=== PATIENT | male | born 1935 | race Caucasian/White ===

== ENCOUNTER → 2019-11-19 12:10 | Outpatient (CLI) | payer MEDICARE, SELFPAY ==
--- NOTE | 2019-11-19 12:14 | DI.RAD.S_ITS ---
PROCEDURE: XR CHEST 2V INDICATIONS: SOB TECHNIQUE: 2 views of the chest were acquired. COMPARISON: [facility], , CHEST 2 VIEW, 10/09/2012, 16:37. FINDINGS: Surgical changes and devices: None. Lungs and pleura: Lungs are clear. No pleural effusions or pneumothorax. Mediastinum: Mediastinal contours are normal. Heart size is normal. Large hiatal hernia is noted. Bones and chest wall: No suspicious bony abnormalities. Soft tissues appear unremarkable. IMPRESSION: No acute cardiopulmonary disease. Dictated by: Peterson Poole M.D. on 11/19/2019 at 16:00 Approved by: Peterson Poole M.D. on 11/19/2019 at 16:06
[2019-11-19 13:00] LABS: Add Manual Diff / Slide Review NO; Basophils Absolute Auto 0 /uL (0-100); Basophils Percent Auto 0.8 % (0-2); Eosinophils Absolute Auto 100 /uL (0-450); Eosinophils Percent Auto 2.1 % (2-4); Hematocrit 46.7 % (41-53); Hemoglobin 15.4 g/dL (13.5-17.5); Lymphocytes Absolute Auto 1100 /uL (1100-4500); Lymphocytes Percent Auto 17.9 % (25-40); Mean Corpuscular Hemoglobin 31.4 PG (26-34); Mean Corpuscular Volume 95.1 fL (80-100); Monocytes Absolute Auto 600 /uL (0-900); Monocytes Percent Auto 9.5 % (3-14); Neutrophils Absolute Auto 4200 /uL (1500-7000); Neutrophils Percent Auto 69.7 % (50-75); Platelet Count 193 X10^3/uL (150-400); White Blood Cell Count 6.1 X10^3/uL (4.5-11.0)
[2019-11-19 13:18] LABS: Alanine Aminotransferase 14 IU/L (<50); Albumin 4.5 g/dL (3.5-5.0); Albumin Globulin Ratio 1.9 (1.0-2.8); Alkaline Phosphatase 71 U/L (38-126); Aspartate Aminotransferase 30 IU/L (17-59); BUN Creatinine Ratio 14.6 (6-22); Blood Urea Nitrogen 19 mg/dL (9-20); Calcium 9.9 mg/dL (8.4-10.2); Carbon Dioxide 26 mmol/L (22-32); Chloride 102 mmol/L (98-107); Cholesterol 241 mg/dL (140-199); Estimated Glomerular Filt Rate 52.9 mL/min (>60); Globulin 2.4 g/dL (1.7-4.1); Glucose 92 mg/dL (80-110); HDL Cholesterol 77 mg/dL (40-60); HEMOLYSIS < 15 (0-50); LDL Cholesterol Calculated 148 mg/dL (<100); Magnesium 2.2 mg/dL (1.6-2.3); Potassium 4.7 mmol/L (3.4-5.1); Sodium 136 mmol/L (137-145); Total Protein 6.9 g/dL (6.3-8.2); Triglycerides 81 mg/dL (35-150)
[2019-11-19 13:34] LABS: Free T3, Triiodothyronine Free 2.67 pg/mL (2.77-5.27); Free T4, Direct Thyroxine 1.26 ng/dL (0.78-2.19)
[2019-11-19 13:48] LABS: Thyroid Stimulating Hormone 3.25 uIU/mL (0.47-4.68)
[2019-11-19 14:06] LABS: Vitamin B12 387 pg/mL (239-931)
[2019-11-19 17:19] LABS: Creatine Kinase 60 U/L (55-170)
[2019-11-19 17:32] LABS: Troponin I < 0.012 ng/mL (0.01-0.034)
== END ==
PROVIDERS: Referring Provider Nurse Practitioner; Visit Provider Nurse Practitioner
DX: R00.1 Bradycardia, unspecified (principal); R06.02 Shortness of breath; I49.9 Cardiac arrhythmia, unspecified
CPT/HCPCS: 36415; 71046; 80053; 80061; 82550; 82607; 83735; 84439; 84443; 84481; 84484; 85025

== ENCOUNTER → 2019-12-02 13:54 | Outpatient (CLI) | payer MEDICARE, SELFPAY ==
[2019-12-02 14:58] LABS: Occult Blood 1 Negative (Negative); Occult Blood 2 Negative (Negative); Occult Blood 3 Negative (Negative)
[2019-12-03 18:11] LABS: COVID19 Sendout Not Detected (Not Detect)
== END ==
PROVIDERS: Physician Assistant; Family Provider Nurse Practitioner; Referring Provider Nurse Practitioner; Visit Provider Nurse Practitioner
DX: Z11.59 Encounter for screening for other viral diseases (principal)
CPT/HCPCS: 82270; 87635

== ENCOUNTER → 2019-12-05 06:39 | Outpatient (CLI) | payer MEDICARE, SELFPAY ==
--- NOTE | 2019-12-05 06:43 | DI.ECHO.S_ITS ---
[place] [facility]---------+ [facility] +---------+ : : [address] : [address] [address] : : : : [id number] : : : : Phone: [phone] Echocardiogram Report + + :Name: CAROLYNN MOON Study Date: 12/05/2019 Height: 67 in : :[facility] Weight: 183 lb : : Gender: Male BSA: 1.9 m2 : :: 1935 Age: 84 yrs BP: 140/82 mmHg: :Reason For Study: Dyspnea on exertion, Bradycardia : : Performed By: Carie Vela : :Referring: KRYSTAL [facility] : + + Interpretation Summary The left ventricle is normal in size. Left ventricular ejection fraction is estimated to be 55 +/- 5%. The right ventricle is mildly dilated. The right ventricular systolic function is normal. There is mild to moderate mitral regurgitation. There is mild aortic regurgitation. There is mild to moderate tricuspid regurgitation. The right ventricular systolic pressure is estimated to be at least 26 mmHg based on an estimated right atrial pressure of 3 mm Hg. The ascending aorta is moderately enlarged. 4.6 cm in diameter. Mild atherosclerotic plaque(s) in the aortic arch. Procedure: A two-dimensional transthoracic echocardiogram with color flow and Doppler was performed. The study quality was technically adequate. There is no prior echocardiogram noted for this patient. The patient was in sinus bradycardia with heart rates between 44-55 bpm during the exam. The patient had frequent PACs during the exam. Left Ventricle: The left ventricle is normal in size. Left ventricular wall thickness is mildly increased. There is no thrombus. Left ventricular ejection fraction is estimated to be 55 +/- 5%. There are no focal wall motion abnormalities. Diastolic parameters suggest a relaxation abnormality of the left ventricle, consistent with probable normal filling pressures. Right Ventricle: The right ventricle is mildly dilated. The right ventricular systolic function is normal. Atria: The left atrium is severely dilated. The right atrium is moderately dilated. There is no Doppler evidence for an interatrial shunt. Mitral Valve: There is a flat closure plane of the the mitral valve leaflets. The mitral valve leaflets appear mildly thickened, but open well. There is mild mitral annular calcification. There is mild to moderate mitral regurgitation. Aortic Valve: The aortic valve is trileaflet. The aortic valve opens well. There is mild aortic valve sclerosis. There is no aortic valve stenosis. There is mild aortic regurgitation. Tricuspid Valve: The tricuspid valve is normal. There is mild to moderate tricuspid regurgitation. The right ventricular systolic pressure is estimated to be at least 26 mmHg based on an estimated right atrial pressure of 3 mm Hg. Pulmonic Valve: The pulmonic valve leaflets are thin and pliable; valve motion is normal. There is trace pulmonic regurgitation. Great Vessels: The aortic root is normal size. The ascending aorta is moderately enlarged. The aortic arch is at the upper limits of normal in size. Mild atherosclerotic plaque(s) in the aortic arch. The IVC is of normal diameter and collapses greater than 50% with a sniff. This suggests a low right atrial pressure of 3 mm Hg. Pericardium/ Pleura There is no pericardial effusion. MMode/2D Measurements & Calculations LVIDd: 5.0 cm LVOT diam: 2.0 cm LVIDs: 2.9 cm Ao root diam: 3.9 cm FS: 41.0 % Aortic Jxn: 3.2 cm EPSS: 1.3 cm asc Aorta Diam: 4.6 cm IVSd: 1.2 cm Ao Arch Diam (Prox Trans): 3.3 cm LVPWd: 1.0 cm LV alamo. diameter/BSA (cm/m^2): 2.6 LV sys. diameter/BSA (cm/m^2): 1.5 LA A2 area: 25.7 cm2 RA long axis: 7.0 cm LA A4 area: 29.4 cm2 RA area: 25.9 cm2 LA length (vol): 6.7 cm RA vol: 81.9 ml LA vol: 95.9 ml RA : 42.0 ml/m2 LA vol index: 49.2 ml/m2 IVC diam: 1.7 cm RVD1 (basal): 4.4 cm RVD2 (mid): 3.3 cm TAPSE: 2.8 cm Doppler Measurements & Calculations Ao V2 max: 152.0 cm/sec LVOT Max Paramjit: 72.5 cm/sec Ao V2 mean: 105.0 cm/sec LV V1 max P.1 mmHg Ao max P.2 mmHg LV V1 VTI: 20.8 cm Ao mean P.1 mmHg SANDRA(I,D): 1.7 cm2 Ao V2 VTI: 40.5 cm SANDRA(V,D): 1.6 cm2 sev ratio: 0.51 SANDRA indexed to BSA (cm^2/m^2): 0.87 AI P1/2t: 1192 msec AI dec slope: 113.9 cm/sec2 MV E max paramjit: 38.7 cm/sec TR max paramjit: 238.7 cm/sec MV A max paramjit: 41.4 cm/sec TR max P.8 mmHg MV E/A: 0.93 PA V2 max: 49.4 cm/sec Med Peak E' Paramjit: 5.8 cm/sec PA V2 mean: 32.4 cm/sec E/E' med: 6.7 PA mean P.52 mmHg Lat Peak E' Paramjit: 9.0 cm/sec PA Accel Time: 0.10 sec E/E' lat: 4.3 E/e' average: 5.5 MV dec time: 0.36 sec MV P1/2t: 105.6 msec MV P1/2t max paramjit: 38.9 cm/sec SV(LVOT): 68.3 ml MVA(P1/2t): 2.1 cm2 Reading Physician:10:36 AM
--- NOTE | 2019-12-05 08:12 | DI.CT.S_ITS ---
PROCEDURE: CT KIDNEY URETER BLADDER (KUB) INDICATIONS: painless mirohematuria TECHNIQUE: Noncontrast 5 mm thick sections acquired from the diaphragms to the symphysis. 5 mm thick coronal and sagittal reformats were then performed. For radiation dose reduction, the following was used: automated exposure control, adjustment of mA and/or kV according to patient size. COMPARISON: None. FINDINGS: Image quality: Excellent. Lung bases: Lung bases are clear. No pleural effusion. Heart size is within normal limits. Aortic valvular calcification. Small hiatal hernia. Urinary system: Both kidneys are normal in size. No kidney stones. No hydronephrosis or perinephric fat stranding. Small simple cyst at the inferior pole of left kidney. Extrarenal pelvis bilaterally. The left ureter is mildly enlarged distally compared to the right which may be due to peristalsis. The right ureter is deviated medially at the distal aspect prior to its insertion. 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 Small bladder diverticulum at the left dome measuring 1.2 cm. Bladder wall thickness appears normal; no calcified bladder stones. Other solid organs: Liver is normal in size. Calcified granuloma. Gallbladder is unremarkable. Pancreas is normal in contours. Fatty atrophy. Spleen is normal in size. Calcified granuloma. No adrenal nodules. Peritoneum and bowel: Unenhanced bowel loops demonstrate normal wall thickness and caliber. Diverticulosis. Normal appendix. No free fluid or air. Nodes and vessels: No retroperitoneal or mesenteric adenopathy by size criteria. Aorta and inferior vena cava are normal in caliber. Moderate calcified atherosclerotic plaque. Abdominal wall: No ventral hernias. Small right lumbar hernia or intramuscular lipoma. Small posterior rectus intramuscular lipoma the left. Pelvis: No free pelvic fluid. No inguinal hernias or adenopathy. Prostate gland is within normal limits in size. There is central prosthetic calcifications. Question of prior TURP. Bones: No suspicious bony lesions. The sclerosis and cystic change at the inferior SI joints likely degenerative. No vertebral body compression fractures. Moderate DDD. IMPRESSION: 1. No kidney stones. 2. 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 This deviates the right ureter medially. 3. Mild prominence of the distal left ureter. Uncertain clinical significance and etiology. Peristalsis is a possibility. 4. No hydronephrosis. Recommend urology consultation. Consider further evaluation of these findings with CT IVP in this patient with hematuria and cystoscopy. Dictated by: Kareem Castillo M.D. on 12/05/2019 at 8:41 Approved by: Kareem Castillo M.D. on 12/05/2019 at 8:57
== END ==
PROVIDERS: Family Provider Nurse Practitioner; PCP Nurse Practitioner; Referring Provider Nurse Practitioner; Visit Provider Nurse Practitioner
DX: I08.3 Combined rheumatic disorders of mitral, aortic and tricuspid valves (principal); I70.0 Atherosclerosis of aorta; I77.89 Other specified disorders of arteries and arterioles; R06.02 Shortness of breath; R06.09 Other forms of dyspnea; R31.21 Asymptomatic microscopic hematuria; N28.1 Cyst of kidney, acquired; N32.3 Diverticulum of bladder; K44.9 Diaphragmatic hernia without obstruction or gangrene; I49.9 Cardiac arrhythmia, unspecified; M54.5 Low back pain
CPT/HCPCS: 74176; 93016; 93017; 93018; 93306

== ENCOUNTER → 2019-12-08 11:09 | Outpatient (CLI) | payer MEDICARE, SELFPAY ==
--- NOTE | 2019-12-05 09:11 | P.PCN_ITS ---
Cardiac Stress Test Report Referral & Results Date Patient Seen: 12/05/19 Time Patient Seen: 09:00 Requesting provider: Deisy Pederson Indication: Dyspnea Rest ECG: Frequent PACs, rare PVCs. No bigeminy or runs of tachycardia. Normal rate. Procedure Note: Today following both written and verbal informed consent, the patient was exercised according to a standard Mario protocol. The patient exercised for a total of 6 minutes achieving a maximum heart rate of 130. Patient's maximum systolic blood pressure was 172. This was an estimated 7 ME Ts. Normal hemodynamic response to exercise. Presenting symptom of shortness of breath began about 3 minutes and exercise and was the limiting factor to continuing. No other signs or symptoms of angina. No change in rhythm with exertion. Maintained O2 saturation greater than 92% throughout the test. Normal exercise capacity (SANDRA 0% on active scale). Impression: Low probability for ischemia. No change in rhythm associated with onset of symptoms. Correlate clinically with other components of this workup. Please note: Actual ECG tracings can be found in the PACS system.
--- NOTE | 2019-12-25 10:54 | P.HOLT.S_ITS ---
Box Car Bracer Report Referral & Results Date Patient Seen: 12/08/19 Requesting provider: Deisy Pederson Indication: Bradycardia Duration of monitoring (days): 7 Diary information: There were 8 patient triggered events and no patient diary entries Patient triggered events were associated with (within 45 seconds) sinus rhythm, PACs, PVCs and possible junctional rhythm Data: Minimum heart rate identified was 43 beats per minute at 04:04 on 12/09/2019 Maximum sinus heart rate was 114 beats per minute at 13:16 on 12/09/2019 Maximum overall heart rate was 184 beats per minute at 19:52 on 12/10/2019 during a 10 beat run of SVT Patient had frequent PACs including occasional supraventricular couplets. Overall burden of PACs was about 7.6% Patient had rare PVCs There were 197 runs of SVT/atrial tachycardia the fastest being the above- mentioned beat at 184 beats per minute during a 10 beat run, the longest lasting 23.4 seconds at a rate of 115 beats per minute which suggest this was more likely atrial tachycardia There is also as noted above possible junctional rhythm identified with very narrow complex in fact normal looking QRS complexes. This was also during a time of significant baseline artifact, thus limiting ability to trust that these were truly junctional beats, in my opinion. Impression: Patient without evidence of significant bradycardia overall other than minimum heart rate being 43 beats per minute. Patient with relatively frequent supraventricular dysrhythmias as above. No significant blocks and would not actually be concerned about possibility of junctional rhythm in this patient as more likely these were associated with a wandering atrial pacemaker rather than true junctional rhythm. Clinical correlation suggested
== END ==
PROVIDERS: Family Provider Nurse Practitioner; PCP Nurse Practitioner; Referring Provider Nurse Practitioner; Visit Provider Nurse Practitioner
DX: R00.1 Bradycardia, unspecified (principal)
CPT/HCPCS: 0296T; 0298T

== ENCOUNTER 2020-07-31 11:09 | Inpatient (IN) | payer MEDICARE, SELFPAY ==
[2020-07-31] VITALS (19 sets, daily range): BP systolic 120–185; BP diastolic 64–103; PULSE 60–100; RESP 10–20; TEMP 36.2–37.3; O2SAT 91–99; BMI 27.3
--- NOTE | 2020-07-31 | DI.RAD.S_ITS ---
PROCEDURE: XR PELVIS 1-2V INDICATIONS: RIGHT KARLA HIP TECHNIQUE: Intra-operative view of the pelvis and hip acquired. COMPARISON: None. FINDINGS: Bones: Intraoperative devices prior to placement of arthroplasty prostheses are in expected positions. No fractures or suspicious bony lesions. Soft tissues: Overlying surgical retractors are present, along with other intraoperative changes. IMPRESSION: Intraoperative images of right hip shows right hip arthroplasty in progress. Dictated by: Can Bauman M.D. on 07/31/2020 at 16:50 Approved by: Can Bauman M.D. on 07/31/2020 at 16:50
--- NOTE | 2020-07-31 11:17 | DI.RAD.S_ITS ---
PROCEDURE: XR HIP W PEL IF DONE RT 2V INDICATIONS: fall TECHNIQUE: AP pelvis with lateral view(s) of the right hip(s). COMPARISON: 12/05/2019 CT abdomen/pelvis.. FINDINGS: Bones: There is a transcervical fracture of the right proximal femur appears displaced approximately 1.5 centimeter on cross-table lateral view. There is also widening of the pubic symphysis which appears present on 12/05/2019. Pelvic ring appears intact. No suspicious bony lesions. Degenerate changes of the spine. Soft tissues: The visualized bowel gas pattern is normal. Vascular calcifications in the soft tissues. IMPRESSION: 1. Transcervical fracture of the right femur. 2. Widening of the pubic symphysis, likely secondary to remote injury as this was seen on CT performed on 12/05/2019. Dictated by: David Catalan M.D. on 07/31/2020 at 11:03 Approved by: David Catalan M.D. on 07/31/2020 at 11:07
[2020-07-31 11:42] LABS: Add Manual Diff / Slide Review NO; Basophils Absolute Auto 0 /uL (0-100); Basophils Percent Auto 0.3 % (0-2); Eosinophils Absolute Auto 400 /uL (0-450); Hematocrit 47.8 % (41-53); Hemoglobin 15.9 g/dL (13.5-17.5); Lymphocytes Absolute Auto 900 /uL (1100-4500); Lymphocytes Percent Auto 9.6 % (25-40); Mean Corpuscular HGB Conc 33.3 % (30-36); Mean Corpuscular Hemoglobin 31.4 PG (26-34); Mean Corpuscular Volume 94.2 fL (80-100); Monocytes Absolute Auto 600 /uL (0-900); Monocytes Percent Auto 6.9 % (3-14); Neutrophils Absolute Auto 7300 /uL (1500-7000); Neutrophils Percent Auto 79.2 % (50-75); Platelet Count 154 X10^3/uL (150-400); Red Blood Cell Count 5.08 X10^6/uL (4.5-5.9); Red Cell Distribution Width 14.4 % (11.6-14.8); White Blood Cell Count 9.2 X10^3/uL (4.5-11.0)
[2020-07-31 11:48] LABS: INR 1.1 (0.9-1.3); Prothrombin Time 12.3 SECONDS (10.1-12.7)
[2020-07-31 11:54] LABS: Alanine Aminotransferase 14 IU/L (<50); Albumin 4.1 g/dL (3.5-5.0); Albumin Globulin Ratio 1.4 (1.0-2.8); Alkaline Phosphatase 65 U/L (38-126); Aspartate Aminotransferase 28 IU/L (17-59); BUN Creatinine Ratio 17.6 (6-22); Bilirubin Total 1.2 mg/dL (0.2-1.3); Blood Urea Nitrogen 22 mg/dL (9-20); Calcium 9.3 mg/dL (8.4-10.2); Carbon Dioxide 22 mmol/L (22-32); Chloride 104 mmol/L (98-107); Estimated Glomerular Filt Rate 55.2 mL/min (>60); Glucose 101 mg/dL (80-110); HEMOLYSIS < 15 (0-50); Potassium 4.4 mmol/L (3.4-5.1); Sodium 136 mmol/L (137-145); Total Protein 7.1 g/dL (6.3-8.2)
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
[2020-07-31] MEDS: MORPHINE 2 MG/ML INJ IV (12:41)
[2020-07-31 13:27] LABS: COVID19 - ADMIT (NP swab/PCR) Negative (Negative)
--- NOTE | 2020-07-31 14:02 | P.HP_ITS ---
History of Present Illness History of Present Illness Date Patient Seen: 07/31/20 Time Patient Seen: 14:02 Chief complaint: HIP PAIN Narrative: Sloan Cano is an 85-year-old male with no significant past medical history who presented to the emergency room with worsening right hip pain after a fall 2 days ago. Patient states that he had a mechanical fall over an exposed bolt when shuffling sideways and fell onto his right side. He had immediate pain afterwards, which he tried to take oral pain medications at home but this did not seem to make his leg better. His leg pain continue to worsen and he was starting to become very weak so this is why he came to the emergency room today. Prior to the fall he experienced no dizziness, chest pain, palpitations. He has no recent shortness of breath or dyspnea on exertion. He is able to row about 10 miles on his home exercise machine. He does endorse alcohol use of about 2-3 beers per day. He denies history of shaking or withdrawal symptoms when he does not drink. He has not had a drink since his fall 2 days ago. He did have a cardiac workup as an outpatient last year, which was fairly unremarkable. His EKG stress test was unremarkable and his Holter monitor showed frequent PACs, some episodes of nonsustained ventricular tachycardia, but no other tachyarrhythmias or bradyarrhythmias. In the emergency room, the patient was mildly hypertensive, but the remainder is vital signs were unremarkable. Initial laboratory evaluation showed an unremarkable CBC, normal coagulation studies. Chemistries revealed a creatinine of 1.25 with an EGFR 55.2 but the remainder of his chemistries were unrema rkable. COVID-19 testing was negative. X-ray of his right hip reveals a transcervical fracture of his right femur. Patient History Medical History Anemia (~2009) Bradycardia Cardiac arrhythmia Fatigue Hearing loss (~1989) Hiatal hernia Mumps (~1948) Pain in lower back Shortness of breath on exertion Shoulder pain (~2003) Tinnitus (~1989) Surgical History Anesthesia History of hernia repair (~05/2016) Family & Social History Family History Father Ruptured, aorta Sister Giant cell arteritis Safety & Behavioral: Feels Safe in Current Yes Environment Been Physically Hurt or No Threatened By a Person Tobacco & Substance use: Smoking Status Former smoker alcohol intake current Meds Home Medications and Allergies Home Medications Medication Instructions Recorded Confirmed Type diphenhydramine HCl 50 mg capsule 50 mg PO BEDTIME PRN 11/19/19 06/15/20 History Allergies Allergy/AdvReac Type Severity Reaction Status Date / Time No Known Drug Allergies Allergy Unknown Verified 01/07/20 08:41 [NO KNOWN DRUG ALLERGIES] Review of Systems Review of Systems Narrative: All other systems reviewed with the patient and are negative unless otherwise stated. Exam Vital Signs (past 8 hours): - 07/31/20 11:12 07/31/20 12:43 07/31/20 12:44 Temperature 98.4 F Pulse Rate 78 66 60 Respiratory Rate 16 16 Blood Pressure 185/89 H 174/82 H Pulse Oximetry 96 93 99 07/31/20 13:00 Temperature Pulse Rate 65 Respiratory Rate Blood Pressure 145/95 H Pulse Oximetry 93 Oxygen Delivery Method Room Air Narrative Exam Narrative: GENERAL APPEARANCE: Well developed, well nourished, in no acute distress. SKIN: Inspection of the skin reveals no rashes, ulcerations or petechiae. HEENT: Normocephalic atraumatic, extraocular muscles are intact, oropharynx is clear and mucous membranes are moist, neck is supple without adenopathy NECK: Supple and symmetric. There was no thyroid enlargement, and no tenderness, or masses were felt. CHEST: Normal AP diameter and normal contour without any kyphoscoliosis. LUNGS: Auscultation of the lungs revealed no wheezes, rhonchi, or rales. CARDIOVASCULAR: Irregular heart rhythm with a normal rate murmurs, gallops, rubs. Peripheral pulses were 2+ and symmetric. ABDOMEN: Soft and nontender with normal bowel sounds. No ascites was noted. MUSCULOSKELETAL: There was no tenderness or effusions noted. Muscle strength and tone were normal. EXTREMITIES: No cyanosis, clubbing or edema. NEUROLOGIC: Alert and oriented x 3. Normal affect. Gait was normal. Strength is +5/5 in the Upper Extremities and Lower Extremities Bilaterally. Sensation to touch was normal. Objective ECG Impression: Sinus rhythm with marked sinus arrhythmia with premature supraventricular complexes Otherwise normal ECG Imaging CT scan - pelvis: Radiologist's impression: PROCEDURE: XR HIP W PEL IF DONE RT 2V INDICATIONS: fall TECHNIQUE: AP pelvis with lateral view(s) of the right hip(s). COMPARISON: 12/05/2019 CT abdomen/pelvis.. FINDINGS: Bones: There is a transcervical fracture of the right proximal femur appears displaced approximately 1.5 centimeter on cross-table lateral view. There is also widening of the pubic symphysis which appears present on 12/05/2019. Pelvic ring appears intact. No suspicious bony lesions. Degenerate changes of the spine. Soft tissues: The visualized bowel gas pattern is normal. Vascular calcifi cations in the soft tissues. IMPRESSION: 1. Transcervical fracture of the right femur. 2. Widening of the pubic symphysis, likely secondary to remote injury as this was seen on CT performed on 12/05/2019. Labs Result Diagrams: 07/31/20 11:28 07/31/20 11:28 Labs: Laboratory Results - last 24 hr 07/31/20 07/31/20 07/31/20 11:28 11:28 11:28 WBC 9.2 RBC 5.08 Hgb 15.9 Hct 47.8 MCV 94.2 MCH 31.4 MCHC 33.3 RDW 14.4 Plt Count 154 Neut % (Auto) 79.2 H Lymph % (Auto) 9.6 L [place] % (Auto) 6.9 Eos % (Auto) 4.0 Baso % (Auto) 0.3 Neut # (Auto) 7300 H Lymph # (Auto) 900 L [place] # (Auto) 600 Eos # (Auto) 400 Baso # (Auto) 0 PT 12.3 INR 1.1 Sodium 136 L Potassium 4.4 Chloride 104 Carbon Dioxide 22 BUN 22 H Creatinine 1.25 Estimated GFR 55.2 L BUN/Creatinine Ratio 17.6 Glucose 101 Calcium 9.3 Total Bilirubin 1.2 AST 28 ALT 14 Alkaline Phosphatase 65 Total Protein 7.1 Albumin 4.1 Globulin 3.0 Albumin/Globulin Ratio 1.4 SARS-CoV-2 (PCR) 07/31/20 12:31 WBC RBC Hgb Hct MCV MCH MCHC RDW Plt Count Neut % (Auto) Lymph % (Auto) [place] % (Auto) Eos % (Auto) Baso % (Auto) Neut # (Auto) Lymph # (Auto) [place] # (Auto) Eos # (Auto) Baso # (Auto) PT INR Sodium Potassium Chloride Carbon Dioxide BUN Creatinine Estimated GFR BUN/Creatinine Ratio Glucose Calcium Total Bilirubin AST ALT Alkaline Phosphatase Total Protein Albumin Globulin Albumin/Globulin Ratio SARS-CoV-2 (PCR) Negative Assessment & Plan Assessment & Plan narrative: Sloan Cano is an 85-year-old male with no significant past medical history who presented to the emergency room with worsening right hip pain after a fall 2 days ago. He is admitted with a right femur fracture, pending orthopedic interventions planned for later today. He appears to be medically optimized prior to this procedure. 1. R transcervical femur fracture, acute, present on admission - appreciate orthopedic surgery, Dr. Elaine Parra, and her time for management. - suspect pathologic given the nature of his fall secondary to likely osteoporosis. 2. Elevated blood pressure without a diagnosis of hypertension, acute, present on admission. - suspect secondary to pain. However will continue to monitor. 3. Irregular heart beat, chronic - patient has had extensive evaluation within the year including EKG stress testing and holter which showed PACs and a runs of NSVT. Patient denies current symptoms. No evidence of atrial fibrillation. - will continue telemetery after sugery. -EKG in the emergency room shows marked sinus arrhythmia with frequent PACs, no significant ST or T-wave changes indicative of ischemia. 4. Acute urinary retention, present on admission - patient unable to void since yeseterday, bladder scan with >800 cc. May be in setting of acute fracture, will continue to monitor after surgery. Hewitt placed upon arrival to the floor. Prior to this no reported BPH symptoms. CODE: Full as discussed with the patient. Advanced directives are with his spouse, whom is his surrogate decision maker. DVT: per ortho post operatively. Dispo: admitted under inpatient status as his stay is expected to exceed 2 midnights COVID-19 COVID-19 status: Negative
--- NOTE | 2020-07-31 14:10 | PC.NURSE ---
Addendum entered by Margo Alarcon R.N. 08/01/20 06:41: Patient voided 100 ml via urinal. 950 ml urine amount on bladder scanner. 16 fr Hewitt Cath placed by Chaya SHAEFR, as ordered by Dr. Lozano. Please see urine scan print out in chart. Original Note: Admit note: Received patient from ED to room 211, awake, alert, and pleasantly cooperative. VSS and remain NPO. Dr. Lozano at bedside on patient arrival for examination. Bedside report given to Chaya form Surgery. Patient off floor shortly after arrival to AC unit.
--- NOTE | 2020-07-31 14:26 | P.HP_ITS ---
History of Present Illness History of Present Illness Date Patient Seen: 07/31/20 Time Patient Seen: 14:26 Date of Onset of Symptoms: 07/29/20 Chief complaint: HIP PAIN Narrative: This is an 85-year-old gentleman who tripped on over a metal pipe type thing and landed and hurt his right hip. He noted the acute onset of right hip pain. He was at home at the time he has been at home hoping it would go away but really was not getting better and he could not put weight on his right leg so then she called an ambulance and was transported to [facility] for evaluation. Patient History Medical History Anemia (~2009) Bradycardia Cardiac arrhythmia Fatigue Hearing loss (~1989) Hiatal hernia Mumps (~1947) Pain in lower back Shortness of breath on exertion Shoulder pain (~2003) Tinnitus (~1989) Surgical History Anesthesia History of hernia repair (~05/2016) Family & Social History Family History Father Ruptured, aorta Sister Giant cell arteritis Safety & Behavioral: Feels Safe in Current Yes Environment Been Physically Hurt or No Threatened By a Person Tobacco & Substance use: Smoking Status Former smoker alcohol intake current Meds Home Medications and Allergies Home Medications Medication Instructions Recorded Confirmed Type diphenhydramine HCl 50 mg capsule 50 mg PO BEDTIME PRN 11/19/19 06/15/20 History Allergies Allergy/AdvReac Type Severity Reaction Status Date / Time No Known Drug Allergies Allergy Unknown Verified 01/07/20 08:41 [NO KNOWN DRUG ALLERGIES] Review of Systems Review of Systems Narrative: He notes he needs he had to void. He last voided yesterday. He does not normally have nocturia. He denies fevers or chills. He was not short of breath, lightheaded or having any cardiac pain prior to his fall. Exam Vital Signs (past 8 hours): - 07/31/20 11:12 07/31/20 12:43 07/31/20 12:44 Temperature 98.4 F Pulse Rate 78 66 60 Respiratory Rate 16 16 Blood Pressure 185/89 H 174/82 H Pulse Oximetry 96 93 99 04/03/21 13:00 07/31/20 13:45 Temperature 98.3 F Pulse Rate 65 78 Respiratory Rate 16 Blood Pressure 145/95 H 153/84 H Pulse Oximetry 93 96 Oxygen Delivery Method Room Air Oxygen Flow Rate 0 Narrative Exam Narrative: HEENT is benign, cor slightly a regular no murmur fairly normal sound and S1 and S2, lungs are clear, abdomen is soft and benign, right leg shows obvious foreshortening with significant pain with attempted gentle range of motion, his feet are warm bilaterally is able to fire toe flexors and extensors bilaterally, calfs are soft bilaterally Objective Labs Result Diagrams: 07/31/20 11:28 07/31/20 11:28 Labs: Laboratory Results - last 24 hr 07/31/20 07/31/20 07/31/20 11:28 11:28 11:28 WBC 9.2 RBC 5.08 Hgb 15.9 Hct 47.8 MCV 94.2 MCH 31.4 MCHC 33.3 RDW 14.4 Plt Count 154 Neut % (Auto) 79.2 H Lymph % (Auto) 9.6 L [place] % (Auto) 6.9 Eos % (Auto) 4.0 Baso % (Auto) 0.3 Neut # (Auto) 7300 H Lymph # (Auto) 900 L [place] # (Auto) 600 Eos # (Auto) 400 Baso # (Auto) 0 PT 12.3 INR 1.1 Sodium 136 L Potassium 4.4 Chloride 104 Carbon Dioxide 22 BUN 22 H Creatinine 1.25 Estimated GFR 55.2 L BUN/Creatinine Ratio 17.6 Glucose 101 Calcium 9.3 Total Bilirubin 1.2 AST 28 ALT 14 Alkaline Phosphatase 65 Total Protein 7.1 Albumin 4.1 Globulin 3.0 Albumin/Globulin Ratio 1.4 SARS-CoV-2 (PCR) 07/31/20 12:31 WBC RBC Hgb Hct MCV MCH MCHC RDW Plt Count Neut % (Auto) Lymph % (Auto) [place] % (Auto) Eos % (Auto) Baso % (Auto) Neut # (Auto) Lymph # (Auto) [place] # (Auto) Eos # (Auto) Baso # (Auto) PT INR Sodium Potassium Chloride Carbon Dioxide BUN Creatinine Estimated GFR BUN/Creatinine Ratio Glucose Calcium Total Bilirubin AST ALT Alkaline Phosphatase Total Protein Albumin Globulin Albumin/Globulin Ratio SARS-CoV-2 (PCR) Negative x-rays show a displaced right femoral neck fracture, no obvious hip arthritis bilaterally Assessment & Plan Assessment & Plan narrative: displaced right femoral neck fracture. The plan is for a right hip unipolar. He has relatively good looking bone and I will do either uncemented were cemented depending upon the quality of bone. Procedure alternatives risks benefits and complications were discussed in detail. He understands and agrees and consents to proceed with surgery. He also has urinary retention and a Hewitt catheter was placed 1500 cc of urine was drained.
--- NOTE | 2020-07-31 14:27 | PM.OP.1 ---
Operative Date/Time/Diagnoses Date of procedure: 07/31/20 Time of procedure: 14:27 Pre-op diagnosis: Right hip femoral neck fracture Post-op diagnosis: same Procedure & Clinicians Procedure: right hip unipolar replacement Same procedure as scheduled: Yes Indications: this is 85-year-old gentleman who fell on noted the acute onset of right hip pain. He was hoping that it would get better on its own and waited a day and a half to 2 days to come to the emergency room. He notes he was not able to put weight on his right leg. His x-rays showed a displaced right femoral neck fracture but the operating room for partial hip replacement. Procedure alternatives risks benefits and complications were discussed with him. Surgeon: Elaine Parra Housing Assistant Property Manager: Luís Dunaway Anesthesia Type: General Operative Notes Findings: displaced right femoral neck fracture. Adequate stability, no significant acetabular wear Closure Type: primary Specimen(s): none sent Prosthetic devices, grafts, tissues, transplants, or devices: Parra and nephew Size 52 femoral head, size 10 high offset anthology, +4 Applied: drain(s) Estimated Blood Loss (mL): 250 Blood products transfused: none Procedure in detail: The patient was seen in the pre-operative area, where the patient identified the right hip as the operative site and this was marked with my initials. The patient received pre-operative antibiotics and was taken to the operating room and placed on the operative table in the supine position after satisfactory anesthesia. A multimedia production assistant out was performed. Patient was placed in the lateral decubitus position and all bony prominences were carefully padded and the arms were appropriately position. The right lower extremity was prepared from the ankle to the iliac crest with ChloroPrep in the usual fashion and draped through sterile drapes. The hip was approached through posterolateral approach. Dissection was carried out down through skin and subcutaneous tissues. The fascia was opened. Gelpi retractors were placed. A Charnley retractor was placed. A small amount of inflamed bursa was resected. The piriformis was identified and protected. The other short external rotators and capsule were carefully stripped from the posterior aspect of the femur. They were tagged and carefully retracted. The femoral neck was brought up and an osteotomy was made of the residual femoral neck approximately 1 fingerbreadth above the lesser trochanter. The head was removed without difficulty. It was carefully sized. The acetabulum was meticulously irrigated with normal saline. There were [mild] changes in the acetabulum. The acetabulum was carefully protected with an E tape. The canal was opened with a box cutting osteotome, followed by a T-handled reamer and a lateralizing reamer. The femur was prepped with sequential broaching. A trial head and neck were then placed and the hip relocated and checked for leg length and stability. The patient was stable in the position of sleep, of squatting, and could be put through a range of motion with 45 degrees internal rotation without dislocation. At 90 degrees flexion, internal rotation to 70? was possible before dislocation. This was felt to be satisfactory and the appropriate components were opened, and the trials were removed. I checked both a standard and a high offset. High offset was better for the offset and there was not excessive tension on the external rotators. The bone was carefully checked and felt to be adequate for and cemented technique. The bone was meticulously cleaned with pulse lavage. The femoral component was placed without difficulty. A repeat trial reduction showed good range of motion and stability. We did a brief Betadine soak after the cement had hardened. Patient had good range of motion and stability. The final head and neck were placed after carefully irrigating the wound. The capsulomuscular flap was then repaired to the greater trochanter though an awl hole using the tag sutures. The short external rotators were repaired with nonabsorbable sutures. A deep drain was placed and brought out anteriorly. The fascia marielle was closed with Vicryl. A subcutaneous drain was placed. The subcutaneous layer was closed with interrupted 3-0 Vicryl, and the skin with a running 3-0 V-Lock suture and a few skin rosa. An Aquacel Ag dressing was applied and the patient was taken to recovery having tolerated the procedure well. Complications: none Post-operative Condition: stable Disposition: Acute Care Plan for aftercare: The patient will be maintained on a standard total hip replacement protocol with weight bearing as tolerated and posterior hip precautions. The patient will receive Aspirin and sequential compression devices for DVT prophylaxis. The patient will be discharged home when safe for the home environment.
[2020-07-31] MEDS: LACTATED RINGERS 1,000 ML 42 ML IV ×2 (14:49→16:33)
[2020-07-31] MEDS: VANCOMYCIN 1,000 MG/200 ML PIGGYBACK 200 MG IV ×2 (15:07→16:05)
--- NOTE | 2020-07-31 15:14 | SUR.HOLD ---
Late entry (1415): Went to retrieve patient from inpatient room 211. Patient GCS 15 and asking to use urinal prior to transfer to OR. Patient having difficulty starting his urine stream and tells this nurse that he has not voided since yesterday at home. Asked inpatient nurse to bring bladder scanner. Notified hospitalist of findings. Bladder scan reveals 940 mls. Orders received by hospitalist to insert indwelling kohler catheter. Notified patient of plan. V/U and willing to proceed. Inserted 16 greek kohler catheter using sterile technique without difficulty and no resistance met upon insertion. Emptied 1200 mls of dark, malodorous urine. Urine specimen collected. Notified nursing staff, Mackenzie, of findings. Patient states that he feels much better.
[2020-07-31] MEDS: CEFAZOLIN 2 GM/100 ML FROZ.PIGGY IV ×2 (15:15→22:53)
--- NOTE | 2020-07-31 15:57 | SUR.OPER ---
Lateral on padded OR bed. Gel axillary roll. Arms secured on padded armboard with pillow supporting top arm. Padded hip positioner braces x4 - anterior and posterior chest and pelvis. Additional gel pad used anterior pelvis. Gel pad under bottom leg from knee to foot and secured with tape over sheet.
[2020-07-31] MEDS: BUPIVACAINE 0.25% W/ EPI (PF) 10 ML VIAL 20 ML INJ (16:24)
[2020-07-31] MEDS: BUPIVACAINE LIPOSOME 266 MG/20 ML VIAL INJ (16:26)
[2020-07-31] MEDS: TRANEXAMIC ACID 1,000 MG in SODIUM CHLORIDE 0.9% 100 ML 400 ML IV (16:27)
--- NOTE | 2020-07-31 17:39 | DI.RAD.S_ITS ---
PROCEDURE: XR HIP W PEL IF DONE RT 2V INDICATIONS: post-op right hip TECHNIQUE: 2 view(s) of the hip acquired. COMPARISON: [facility], [place], XR HIP W PEL IF DONE RT 2V, 07/31/2020, 11:33. FINDINGS: Bones: Patient is status post right hip arthroplasty, with hardware components in expected positions. The hip joint appears congruent. The visualized bony structures appear intact. Soft tissues: Overlying postoperative changes are noted. No suspicious soft tissue densities. Vascular calcification in the groin. IMPRESSION: Right total hip arthroplasty without evidence of hardware complication. Dictated by: David Catalan M.D. on 07/31/2020 at 17:04 Approved by: David Catalan M.D. on 07/31/2020 at 17:08
[2020-07-31] MEDS: LACTATED RINGERS 1,000 ML 125 ML IV (18:54)
[2020-07-31 19:00] LABS: Bacteria Urine None Seen; RBC Urine None Seen (0-5/HPF); WBC Urine None Seen (0-5/HPF)
[2020-07-31 19:04] LABS: Appearance Urine UA CLEAR; Bilirubin Urine UA NEGATIVE (NEGATIVE); Color Urine UA YELLOW; Glucose Urine UA TRACE g/dL (Negative); Ketones Urine UA NEGATIVE (NEGATIVE); Leukocyte Esterase Urine UA NEGATIVE (NEGATIVE); Nitrite Urine UA NEGATIVE (Negative); Occult Blood Urine UA NEGATIVE (Negative); Protein Urine UA NEGATIVE (Negative); Specific Gravity Urine UA 1.015 (1.000-1.035); Urobilinogen Urine UA 0.2 E.U./dL (0.2)
[2020-07-31 19:10] LABS: Culture Indicated Urine Cult Not Indicated
[2020-07-31] MEDS: ASPIRIN EC 81 MG TABLET PO (20:25)
[2020-07-31] MEDS: DOCUSATE 100 MG CAPSULE PO (20:25)
[2020-07-31] MEDS: ACETAMINOPHEN 325 MG TABLET 650 MG PO (20:25)
[2020-07-31] MEDS: IBUPROFEN 400 MG TABLET PO (20:25)
[2020-08-01] VITALS (7 sets, daily range): BP systolic 124–156; BP diastolic 72–86; PULSE 61–74; RESP 18–22; TEMP 36.4–36.8; O2SAT 94–98
[2020-08-01] MEDS: IBUPROFEN 400 MG TABLET PO ×6 (00:25→20:25)
[2020-08-01] MEDS: LACTATED RINGERS 1,000 ML 125 ML IV (03:04)
[2020-08-01 05:35] LABS: Add Manual Diff / Slide Review NO; Basophils Absolute Auto 0 /uL (0-100); Basophils Percent Auto 0.1 % (0-2); Eosinophils Absolute Auto 0 /uL (0-450); Eosinophils Percent Auto 0.1 % (2-4); Hematocrit 37.5 % (41-53); Hemoglobin 12.7 g/dL (13.5-17.5); Lymphocytes Absolute Auto 400 /uL (1100-4500); Mean Corpuscular HGB Conc 33.9 % (30-36); Mean Corpuscular Volume 94.4 fL (80-100); Monocytes Absolute Auto 600 /uL (0-900); Monocytes Percent Auto 5.8 % (3-14); Neutrophils Absolute Auto 9100 /uL (1500-7000); Platelet Count 150 X10^3/uL (150-400); Red Blood Cell Count 3.97 X10^6/uL (4.5-5.9); Red Cell Distribution Width 14.2 % (11.6-14.8); White Blood Cell Count 10.1 X10^3/uL (4.5-11.0)
[2020-08-01 05:46] LABS: BUN Creatinine Ratio 23.7 (6-22); Blood Urea Nitrogen 31 mg/dL (9-20); Calcium 8.4 mg/dL (8.4-10.2); Carbon Dioxide 24 mmol/L (22-32); Chloride 105 mmol/L (98-107); Estimated Glomerular Filt Rate 52.3 mL/min (>60); Glucose 129 mg/dL (80-110); HEMOLYSIS < 15 (0-50); Potassium 4.7 mmol/L (3.4-5.1); Sodium 134 mmol/L (137-145)
[2020-08-01] MEDS: CEFAZOLIN 2 GM/100 ML FROZ.PIGGY IV (06:06)
[2020-08-01] MEDS: DOCUSATE 100 MG CAPSULE PO ×2 (08:41→20:24)
[2020-08-01] MEDS: ACETAMINOPHEN 325 MG TABLET 650 MG PO ×3 (08:41→20:25)
[2020-08-01] MEDS: ASPIRIN EC 81 MG TABLET PO ×2 (08:41→20:24)
--- NOTE | 2020-08-01 08:48 | CM.DANOTE ---
Addendum entered by Machelle Strong LPN 08/01/20 10:02: Discussion with Pt Betzaida in Rounds reveals that pt's spouse Malia would not be able to provide much assist to pt at d/c but that thus far pt was doing will with PT. Dr. Lozano notes that pt did have urinary retention when admitted. He states this is likely due to the severe pain he was in with the hip and anticipates this will resolve after kohler catheter is removed. P: follow for snf vs HH. Addendum entered by Machelle Strong LPN 08/01/20 09:05: Met now with pt and introduced self and role. Joined by Betzaida PT who will see him now for initial eval. Pt confirms he was independent with mobility without assistive device. He and his have not had a change to even think about rehab options but he wondered if he could go straight to a gym. Gave brief info on HH vs snf options and assured him that DCP team would be following as he worked with therapy to see what rehab options might work best for him. Original Note: Discharge Planning/Care Management DCP: Assessment: case received, EMR reviewed. Pt is an 85 year old male who admitted yesterday afternoon to care of hospitalist team. Consulting: Dr. Tammy Parra Payer: Medicare and [facility] Admission status: in review: per JUSTIN Crum. update: Confirmed now as INPT: 07/31 PCP: Oliver Moy Pt was admitted after a fall with hip pain and home treatment attempted. Testing revealed a fracture and pt was taken yesterday late afternoon to surgery for a R unipolar hip replacement. PT was ordered. Order now in place for OT. P: will discuss in Team Rounds and meet with pt and/or his to begin discussion of dc dispo options. Pt is well poised for home with HH or SNF rehab under his insurance. Advanced directive, confirm from FAMILY Start: 07/31/20 18:48 Freq: Q24H Status: Active Protocol: Document 07/31/20 18:49 AKP (Rec: 07/31/20 18:49 AK [id number]) Advance Directive, confirm on record Time 18:49 Person contacted malia Copy received No CM Discharge Assessment Start: 08/01/20 08:46 Freq: Status: Active Protocol: Document 08/01/20 08:47 ITV (Rec: 08/01/20 08:48 ITV [id number]) Discharge Planning Assessment Advance Directives? Yes Advance Directives on File No History Provided By Medical Record Prior Living Arrangements House Household Members spouse Is patient alert and oriented? Yes White-board Updated in Patient Room with Yes name and ext. # of Automatic Teller Machine Servicer
--- NOTE | 2020-08-01 09:31 | PT.IIE ---
Current Diagnoses Displaced midcervical fracture of right femur, initial encounter for closed fracture (07/31/20) Surgery Performed Operation Date: 07/31/20 15:00 Actual Procedures p Hip Hemiarthroplasty Dean(Right) - Elaine Parra MD Surgical History (Last Reviewed 07/31/20 @ 14:45 by Elaine Parra MD) Anesthesia History of hernia repair (~05/2016) Medical History (Last Reviewed 07/31/20 @ 14:45 by Elaine Parra MD) Anemia (~2009) Bradycardia Cardiac arrhythmia Fatigue Hearing loss (~1989) Hiatal hernia Mumps (~1947) Pain in lower back Shortness of breath on exertion Shoulder pain (~2003) Tinnitus (~1989) Physical Therapy Inpatient Evaluation/Re-Eval M1 PT/OT-IP Prior Functional Status Start: 08/01/20 08:22 Freq: NEEDED Status: Active Protocol: Document 08/01/20 09:31 AW (Rec: 08/01/20 10:57 AW [id number]) Medical Review Prior Functional Status Medical History Reviewed Yes Communication Pt is HUSLIA. He is an effective verbal communicator. Mobility and Gait Independent without assistive device. He remains active with rowing and does ~10 miles on an ergometer regularly. Activities of Daily Living and IADL's Independent. Pt drives, shops, cooks. Social History Household Members spouse Living Arrangements House Number of Floors (Floors) One Floor Number of Stairs To Enter/Railing? 2 KIKO with left rail ascending . Home Environment Standard Height Toilet,Walk in Shower Home Equipment Straight Cane,Crutches,Hand Held Shower,Long Handled Shoe Horn,Grab Bars In Shower Additional Social History Comment Pt lives with his , Malia, and a cat. He states Malia has a bad knee and low endurance which will limit her ability to assist at home. M2 PT-IP Current Condition Start: 08/01/20 08:22 Freq: NEEDED Status: Active Protocol: Document 08/01/20 09:31 AW (Rec: 08/01/20 10:57 AW [id number]) Physical Therapy Current Condition Current Condition Evaluation Date 08/01/20 Treatment Diagnosis R femoral neck fx s/p unipolar hip arthroplasty; difficulty in walking Onset Date 07/29/20 Precautions Posterior Hip Precautions No Hip Flexion > 90 degrees,No Hip Internal Rotation,No Hip Adduction Weight Bearing Status Weight Bearing Status Weight Bear as Tolerated M3 PT-IP Subjective Start: 08/01/20 08:22 Freq: NEEDED Status: Active Protocol: Document 08/01/20 09:31 AW (Rec: 08/01/20 10:57 AW [id number]) Subjective Physical Therapy Visit Type Type Initial Evaluation Visit Start Time 09:00 Visit Stop Time 09:31 Total Visit Minutes 31 Physical Therapy Visit Comments Patient Comments Pt is willing to participate with PT Therapy Pain Assessment Pain When Pain Assessed During Mobility Pain Present Pain Present Pain Reported Location rt hip Intensity 2 Scale Used Numeric (0 - 10) Pain Management Techniques Distraction,Re-positioning, Timing of Activity with Medications M4 PT-IP Mobility and Gait Start: 08/01/20 08:22 Freq: NEEDED Status: Active Protocol: Document 08/01/20 09:31 AW (Rec: 08/01/20 10:57 AW [id number]) PT-Bed Mobility Assessment Supine to Sit Supine to Sit Contact Guard Assistance Scooting Scooting to Edge of Bed Contact Guard Assistance PT-Transfer Assessment Sit to and From Stand Sit to and from Stand Moderate Assistance,1 Person Assistance,Use of Upper Extremities Equipment Transfer Assistive Device Gait Belt,Front Wheeled Walker Orthotic/Prosthetic Devices or Brace: No Transfers Transfer Destination Chair Transfer Technique Stand Step Pivot Transfer Ability Level of Assist Minimal Assistance Comments Mobility Comments Pt was lying in bed as PT arrived. BP 164/85. Educated pt on posterior hip precautions and bed mobility related to same. He completed supine to sit CGA and cues for positioning. He sat EOB and denied lightheadedness. Pt stood from the bed mod A x 1 and ambulated to the window with good attention to precautions. He turned to his left and ambulated around the room with FWW SBA before transferring to the chair min A x 1 and cues to maintain precautions. Pt agreed to sit up on the chair. He was left with call light in reach. Informed RN that pt would need a chair alarm. Gait Assessment Gait Gait Assistance Required: Standby Assistance Distance (Feet) 30 Able to Maintain Weight Bearing Status Yes During Gait Assistive Devices Assistive Device Gait Belt,Front Wheeled Walker Orthotic/Prosthetic Devices or Brace: Yes Gait Deviations General Gait Pattern Antalgic,Decreased Stride Length,Decreased Feet Clearance,Flexed Trunk,Step-to Gait Factors Limiting Gait Function Factors Limiting Gait Function Decreased Activity Tolerance, Decreased Strength,Difficulty Following Directions,Limited Range of Motion,Pain,Poor Balance,Poor Safety Awareness Comments Gait Comments Pt ambulated around the room with FWW SBA. He was attentive to precautions, turning to his left at all times without verbal cues. Stair Climbing Assessment Comments Stair Climbing Comments Not assessed. PT-Balance Assessment Sitting Balance and Reactions Static Sitting Balance Ability Normal Dynamic Sitting Balance Ability Good Standing Balance and Reactions Static Standing Balance Ability Good Dynamic Standing Balance Ability Fair Device Used FWW M5 PT-IP Objective Assessments Start: 08/01/20 08:22 Freq: NEEDED Status: Active Protocol: Document 08/01/20 09:31 AW (Rec: 08/01/20 10:57 AW [id number]) Orientation Orientation/Cognition Level of Alertness Alert Orientation Name,Day of Week,Place, Situation Language Function Ability Hard of Hearing Safety Awareness Decreased Safety Awareness Gross Range of Motion Lower Extremity ROM Assessment Right Impaired Strength Lower Extremity Strength Assessment Right Impaired Hip 3-/5 Knee 4-/5 Coordination Assessment Gross Coordination Gross Coordination WNL Sensation Assessment Sensation Gross Sensation WNL Muscle Tone Muscle Tone WNL Yes M6 PT-IP Treatment Start: 08/01/20 08:22 Freq: NEEDED Status: Active Protocol: Document 08/01/20 09:31 AW (Rec: 08/01/20 10:57 AW [id number]) Physical Therapy Treatment Exercises Exercises Ankle Pumps,Gluteal Sets,Quad Sets,Heel Slides Education Education Provided Precautions,Weight Bearing Status,Post-Op Packet,Safety Other Treatments Other Treatment Performed Educated pt on role of PT, plan of care, weightbearing status, posterior hip precautions, and safe use of FWW M7 PT-IP Assessment and Plan Start: 08/01/20 08:22 Freq: NEEDED Status: Active Protocol: Document 08/01/20 09:31 AW (Rec: 08/01/20 10:57 AW [id number]) PT Summary Assessment and Plan Potential Rehabilitation Potential Good Status of Condition at Evaluation Evolving Summary Impairments Pain,ROM,Strength,Balance,Bed Mobility,Transfers,Gait Assessment Summary Berto is an 85 yo man seen for PT evaluation on POD1. He had R hip hemiarthroplasty to repair a femoral neck fracture . Pt is independent in all regards at baseline. On evaluation, pt required CGA to min assist for mobility with FWW but was able to maintain precautions with minimal cues. Pt has limited assist at home and may require SNF rehab before safe return to home. Will continue to assess progress. Goals Bed Mobility Goal Independent Transfer Goal Independent,Front Wheeled Walker Gait Goal Independent,Front Wheel Walker Gait Distance 150 Other Goals - up/down two steps with left rail ascending SBA Days to Meet Goals 5 Frequency of Treatment Frequency Of Treatment Twice a Day Treatment Plan Physical Therapy Treatment Plan Bed Mobility Training,Transfer Training,Gait Training, Therapeutic Exercise,Balance Retraining,Post Op Education, Discharge Planning,Hot or Cold Pack Other Recommendations and Next Treatment ambulation with FWW; stairs Focus when appropriate Precautions Posterior Hip Precautions No Hip Flexion > 90 degrees,No Hip Internal Rotation,No Hip Adduction Other Precautions WBAT Recommendations To Nursing Amount of Assist Needed 1 Person Assist Discharge Recommendations PT Discharge Recommendations Home with Assistance,Home Health,SNF Rehab Other Discharge Recommendations SNF vs home with assist and HH Equipment Needed for Home Before FWW if going home Discharge Transportation Needs at Discharge Private Vehicle,Wheelchair/ Cabulance
--- NOTE | 2020-08-01 10:14 | PM.PN.1 ---
Subjective Subjective Date Patient Seen: 08/01/20 Time Patient Seen: 10:14 Interval history: Sloan Cano is an 85-year-old male with no significant past medical history who presented to the emergency room with worsening right hip pain after a fall 2 days prior to admission. He was admitted with a right transcervical femur fracture, and is status post right hip unipolar replacement on 07/31/2020. He denies any chest pain, shortness of breath, palpitations today. He does have a mild sore throat and nonproductive cough today but denies any fevers or chills. He has no pain at rest but has not gotten up to move as of early this morning. He will work with physical and occupational therapies today to help determine whether not he can go home versus senior care upon discharge. Exam Vital Signs (past 8 hours): - 08/01/20 05:00 08/01/20 05:57 08/01/20 07:40 Temperature 97.8 F 97.6 F Pulse Rate 74 Respiratory Rate 18 22 Blood Pressure 156/80 H 143/74 H Pulse Oximetry 98 97 96 Oxygen Delivery Method Nasal Cannula Oxygen Flow Rate 0 Narrative Exam Narrative: GENERAL APPEARANCE: Well developed, well nourished, in no acute distress. SKIN: Inspection of the skin reveals no rashes, ulcerations or petechiae. HEENT: Normocephalic atraumatic, extraocular muscles are intact, oropharynx is clear and mucous membranes are moist, neck is supple without adenopathy NECK: Supple and symmetric. There was no thyroid enlargement, and no tenderness, or masses were felt. CHEST: Normal AP diameter and normal contour without any kyphoscoliosis. LUNGS: Auscultation of the lungs revealed no wheezes, rhonchi, or rales. CARDIOVASCULAR: Irregular heart rhythm with a normal rate murmurs, gallops, rubs. Peripheral pulses were 2+ and symmetric. ABDOMEN: Soft and nontender with normal bowel sounds. No ascites was noted. MUSCULOSKELETAL: There was no effusions noted. Right hip nontender with light palpation this morning, ELIU drain in place with sanguinous output. Muscle strength and tone were normal. EXTREMITIES: No cyanosis, clubbing or edema. NEUROLOGIC: Alert and oriented x 3. Normal affect. No focal deficits. Objective Labs Result Diagrams: 08/01/20 05:09 08/01/20 05:09 Labs: Laboratory Results - last 24 hr 07/31/20 07/31/20 07/31/20 11:28 11:28 11:28 WBC 9.2 RBC 5.08 Hgb 15.9 Hct 47.8 MCV 94.2 MCH 31.4 MCHC 33.3 RDW 14.4 Plt Count 154 Neut % (Auto) 79.2 H Lymph % (Auto) 9.6 L [place] % (Auto) 6.9 Eos % (Auto) 4.0 Baso % (Auto) 0.3 Neut # (Auto) 7300 H Lymph # (Auto) 900 L [place] # (Auto) 600 Eos # (Auto) 400 Baso # (Auto) 0 PT 12.3 INR 1.1 Sodium 136 L Potassium 4.4 Chloride 104 Carbon Dioxide 22 BUN 22 H Creatinine 1.25 Estimated GFR 55.2 L BUN/Creatinine Ratio 17.6 Glucose 101 Calcium 9.3 Magnesium Total Bilirubin 1.2 AST 28 ALT 14 Alkaline Phosphatase 65 Total Protein 7.1 Albumin 4.1 Globulin 3.0 Albumin/Globulin Ratio 1.4 Urine Color Urine Appearance Urine pH Ur Specific [place] Urine Protein Urine Glucose (UA) Urine Ketones Urine Occult Blood Urine Nitrate Urine Bilirubin Urine Urobilinogen Ur Leukocyte Esterase Urine RBC Urine WBC Urine Bacteria Ur Culture Indicated? SARS-CoV-2 (PCR) 07/31/20 07/31/20 08/01/20 12:31 18:15 05:09 WBC 10.1 RBC 3.97 L Hgb 12.7 L Hct 37.5 L MCV 94.4 MCH 32.0 MCHC 33.9 RDW 14.2 Plt Count 150 Neut % (Auto) 90.0 H Lymph % (Auto) 4.0 L [place] % (Auto) 5.8 Eos % (Auto) 0.1 L Baso % (Auto) 0.1 Neut # (Auto) 9100 H Lymph # (Auto) 400 L [place] # (Auto) 600 Eos # (Auto) 0 Baso # (Auto) 0 PT INR Sodium Potassium Chloride Carbon Dioxide BUN Creatinine Estimated GFR BUN/Creatinine Ratio Glucose Calcium Magnesium Total Bilirubin AST ALT Alkaline Phosphatase Total Protein Albumin Globulin Albumin/Globulin Ratio Urine Color Yellow Urine Appearance Clear Urine pH 6.0 Ur Specific [place] 1.015 Urine Protein Negative Urine Glucose (UA) Trace H Urine Ketones Negative Urine Occult Blood Negative Urine Nitrate Negative Urine Bilirubin Negative Urine Urobilinogen 0.2 Ur Leukocyte Esterase Negative Urine RBC None seen Urine WBC None seen Urine Bacteria None seen Ur Culture Indicated? Cult not indicated SARS-CoV-2 (PCR) Negative 08/01/20 05:09 WBC RBC Hgb Hct MCV MCH MCHC RDW Plt Count Neut % (Auto) Lymph % (Auto) [place] % (Auto) Eos % (Auto) Baso % (Auto) Neut # (Auto) Lymph # (Auto) [place] # (Auto) Eos # (Auto) Baso # (Auto) PT INR Sodium 134 L Potassium 4.7 Chloride 105 Carbon Dioxide 24 BUN 31 H Creatinine 1.31 H Estimated GFR 52.3 L BUN/Creatinine Ratio 23.7 H Glucose 129 H Calcium 8.4 Magnesium 2.0 Total Bilirubin AST ALT Alkaline Phosphatase Total Protein Albumin Globulin Albumin/Globulin Ratio Urine Color Urine Appearance Urine pH Ur Specific [place] Urine Protein Urine Glucose (UA) Urine Ketones Urine Occult Blood Urine Nitrate Urine Bilirubin Urine Urobilinogen Ur Leukocyte Esterase Urine RBC Urine WBC Urine Bacteria Ur Culture Indicated? SARS-CoV-2 (PCR) [facility] Medical History Anemia (~2009) Bradycardia Cardiac arrhythmia Fatigue Hearing loss (~1989) Hiatal hernia Mumps (~1947) Pain in lower back Shortness of breath on exertion Shoulder pain (~2003) Tinnitus (~1989) Surgical History Anesthesia History of hernia repair (~05/2016) Family History Father Ruptured, aorta Sister Giant cell arteritis Social History household members: spouse Smoking Status: Former smoker Tobacco: How many years used: 20 quit status: quit date established (05/07/1979) alcohol intake: current substance use type: does not use Assessment & Plan Assessment & Plan narrative: Sloan Cano is an 85-year-old male with no significant past medical history who presented to the emergency room with worsening right hip pain after a fall 2 days prior to admission. He was admitted with a right transcervical femur fracture, and is status post right hip unipolar replacement 1. R transcervical femur fracture, acute, present on admission - appreciate orthopedic surgery, Dr. Elaine Parra, and her time for management. She performed right hip unipolar replacement on July 31. - suspect pathologic given the nature of his fall secondary to likely osteoporosis. -continue pain control and physical and occupational therapies -drain management per orthopedic surgery. 2. Elevated blood pressure without a diagnosis of hypertension, acute, present on admission. - suspect secondary to pain. However will continue to monitor. 3. Irregular heart beat, chronic - patient has had extensive evaluation within the year including EKG stress testing and holter which showed PACs and a runs of NSVT. Patient denies current symptoms. No evidence of atrial fibrillation. - will continue telemetery. Can discontinue tomorrow if no significant events. -EKG in the emergency room showed marked sinus arrhythmia with frequent PACs, no significant ST or T-wave changes indicative of ischemia. 4. Acute urinary retention, present on admission - patient unable to void since day prior to admission, bladder scan with >800 cc. May be in setting of acute fracture, will continue to monitor after surgery. Hewitt placed upon arrival to the floor. Prior to this no reported BPH symptoms. - UA not indicative of infection from catheterized urine. CODE: Full as discussed with the patient. Advanced directives are with his spouse, whom is his surrogate decision maker. DVT: per ortho post operatively. Dispo: admitted under inpatient status, pending PT/OT for disposition either home with home health or SNF depending on progress. COVID-19 COVID-19 status: Negative
--- NOTE | 2020-08-01 10:34 | PC.NURSE ---
Per provider's orders: Hemovac drain removed, intact, tolerated well. Hewitt catheter removed, tolerated well.
--- NOTE | 2020-08-01 12:22 | P.PN_ITS ---
Subjective Subjective Date Patient Seen: 08/01/20 Time Patient Seen: 12:23 Interval history: Yovani notes he is doing okay is out of bed resting in a chair. He said that he does have some ongoing pain in his right hip when he attempts to mobilize. He had pre-existing problems voiding and has seen a urologist before for his prostate. He is currently not taking medications for his prostate. He did not void for about 24 hours prior to admission. Exam Vital Signs (past 8 hours): - 08/01/20 05:00 08/01/20 05:57 08/01/20 07:40 Temperature 97.8 F 97.6 F Pulse Rate 74 Respiratory Rate 18 22 Blood Pressure 156/80 H 143/74 H Pulse Oximetry 98 97 96 08/01/20 11:33 Temperature 98.3 F Pulse Rate 63 Respiratory Rate 20 Blood Pressure 142/72 H Pulse Oximetry 96 Oxygen Delivery Method Nasal Cannula Oxygen Flow Rate 0 Narrative Exam Narrative: Is alert he sit in a chair he has mild pain with gentle range of motion in his right hip he can fire his toe flexors and extensors, his calf to soft distally, he does have some weakness of both his hip flexor in his quad which is pain inhibited. Objective Labs Result Diagrams: 08/01/20 05:09 08/01/20 05:09 Labs: Laboratory Results - last 24 hr 07/31/20 07/31/20 08/01/20 12:31 18:15 05:09 WBC 10.1 RBC 3.97 L Hgb 12.7 L Hct 37.5 L MCV 94.4 MCH 32.0 MCHC 33.9 RDW 14.2 Plt Count 150 Neut % (Auto) 90.0 H Lymph % (Auto) 4.0 L [place] % (Auto) 5.8 Eos % (Auto) 0.1 L Baso % (Auto) 0.1 Neut # (Auto) 9100 H Lymph # (Auto) 400 L [place] # (Auto) 600 Eos # (Auto) 0 Baso # (Auto) 0 Sodium Potassium Chloride Carbon Dioxide BUN Creatinine Estimated GFR BUN/Creatinine Ratio Glucose Calcium Magnesium Urine Color Yellow Urine Appearance Clear Urine pH 6.0 Ur Specific [place] 1.015 Urine Protein Negative Urine Glucose (UA) Trace H Urine Ketones Negative Urine Occult Blood Negative Urine Nitrate Negative Urine Bilirubin Negative Urine Urobilinogen 0.2 Ur Leukocyte Esterase Negative Urine RBC None seen Urine WBC None seen Urine Bacteria None seen Ur Culture Indicated? Cult not indicated SARS-CoV-2 (PCR) Negative 08/01/20 05:09 WBC RBC Hgb Hct MCV MCH MCHC RDW Plt Count Neut % (Auto) Lymph % (Auto) [place] % (Auto) Eos % (Auto) Baso % (Auto) Neut # (Auto) Lymph # (Auto) [place] # (Auto) Eos # (Auto) Baso # (Auto) Sodium 134 L Potassium 4.7 Chloride 105 Carbon Dioxide 24 BUN 31 H Creatinine 1.31 H Estimated GFR 52.3 L BUN/Creatinine Ratio 23.7 H Glucose 129 H Calcium 8.4 Magnesium 2.0 Urine Color Urine Appearance Urine pH Ur Specific [place] Urine Protein Urine Glucose (UA) Urine Ketones Urine Occult Blood Urine Nitrate Urine Bilirubin Urine Urobilinogen Ur Leukocyte Esterase Urine RBC Urine WBC Urine Bacteria Ur Culture Indicated? SARS-CoV-2 (PCR) [facility] Medical History Anemia (~2009) Bradycardia Cardiac arrhythmia Fatigue Hearing loss (~1989) Hiatal hernia Mumps (~1947) Pain in lower back Shortness of breath on exertion Shoulder pain (~2003) Tinnitus (~1989) Surgical History Anesthesia History of hernia repair (~05/2016) Family History Father Ruptured, aorta Sister Giant cell arteritis Social History household members: spouse Smoking Status: Former smoker Tobacco: How many years used: 20 quit status: quit date established (05/07/1979) alcohol intake: current substance use type: does not use Assessment & Plan Post-op Postoperative Procedures: Procedures Operation Date: 07/31/20 15:00 Actual Procedures Side Surgeon p Hip Hemiarthroplasty Dean Right Elaine Parra MD Doing reasonably well postoperatively after unipolar hip replacement on the right. He can be full weight-bearing on right lower extremity. I encouraged him to continue to work on physical therapy. I think he can probably be disch arged to home tomorrow. He may have stretched his bladder and may need to be discharged with an indwelling Hewitt catheter and a leg bag in order to allow time for bladder recovery. I spoke to Dr. Hoskins about putting him on Flomax as he has known prostate issues. He will follow up with me in about 10-14 days.
[2020-08-01] MEDS: OXYCODONE IR 5 MG TABLET PO (12:26)
--- NOTE | 2020-08-01 12:45 | OT.IP.EVAL ---
Current Diagnoses Displaced midcervical fracture of right femur, initial encounter for closed fracture (07/31/20) Surgery Performed Operation Date: 07/31/20 15:00 Actual Procedures p Hip Hemiarthroplasty Dean(Right) - Elaine Parra MD Past Medical History (Last Reviewed 07/31/20 @ 14:45 by Elaine Parra MD) Anemia (~2009) Bradycardia Cardiac arrhythmia Fatigue Hearing loss (~1989) Hiatal hernia Mumps (~194) Pain in lower back Shortness of breath on exertion Shoulder pain (~2003) Tinnitus (~1989) Surgical History (Last Reviewed 07/31/20 @ 14:45 by Elaine Parra MD) Anesthesia History of hernia repair (~05/2016) Occupational Therapy Inpatient Evaluation/Re-Eval M1 PT/OT-IP Prior Functional Status Start: 08/01/20 08:22 Freq: NEEDED Status: Active Protocol: Document 08/01/20 15:33 CGR (Rec: 08/01/20 15:48 CGR [id number]) Medical Review Prior Functional Status Medical History Reviewed Yes Communication Pt is TANGIRNAQ. He is an effective verbal communicator. Mobility and Gait Independent without assistive device. He remains active with rowing and does ~10 miles on an ergometer regularly. Activities of Daily Living and IADL's Independent. Pt drives, shops, cooks. Social History Household Members spouse Living Arrangements House Number of Floors (Floors) One Floor Number of Stairs To Enter/Railing? 2 KIKO with left rail ascending . Home Environment Standard Height Toilet,Walk in Shower Home Equipment Straight Cane,Crutches,Hand Held Shower,Long Handled Shoe Horn,Grab Bars In Shower Employment Status Retired Additional Social History Comment Pt lives with his , Malia, and a cat. He states Malia has a bad knee and low endurance which will limit her ability to assist at home. M1 PT/OT-IP Prior Functional Status Start: 08/01/20 15:33 Freq: NEEDED Status: Active Protocol: Document 08/01/20 15:33 CGR (Rec: 08/01/20 15:48 CGR [id number]) Medical Review Prior Functional Status Medical History Reviewed Yes Communication Pt is TANGIRNAQ. He is an effective verbal communicator. Mobility and Gait Independent without assistive device. He remains active with rowing and does ~10 miles on an ergometer regularly. Activities of Daily Living and IADL's Independent. Pt drives, shops, cooks. Social History Household Members spouse Living Arrangements House Number of Floors (Floors) One Floor Number of Stairs To Enter/Railing? 2 KIKO with left rail ascending . Home Environment Standard Height Toilet,Walk in Shower Home Equipment Straight Cane,Crutches,Hand Held Shower,Long Handled Shoe Horn,Grab Bars In Shower Employment Status Retired Additional Social History Comment Pt lives with his , Malia, and a cat. He states Malia has a bad knee and low endurance which will limit her ability to assist at home. M2 OT-IP Current Condition Start: 08/01/20 15:33 Freq: Status: Active Protocol: Document 08/01/20 15:33 CGR (Rec: 08/01/20 15:48 CGR [id number]) Occupational Therapy Current Condition Current Condition Evaluation Date 08/01/20 Treatment Diagnosis Fall with hip fx s/p R unipolar hp replacment with posterior precautions. Diagnosis Onset Date 07/31/20 Post Operative Precautions Posterior Hip Precautions No Hip Flexion > 90 degrees,No Hip Internal Rotation,No Hip Adduction Weight Bearing Status Weight Bearing Status Weight Bear as Tolerated M3 OT- IP Subjective and Pain Start: 08/01/20 15:33 Freq: Status: Active Protocol: Document 08/01/20 15:33 CGR (Rec: 08/01/20 15:48 CGR [id number]) OT- Subjective Occupational Therapy Visit Type Type Initial Evaluation Visit Start Time 12:21 Visit Stop Time 12:45 Total Visit Minutes 24 OT Pain Assessment Pain When Pain Assessed During Mobility Pain Present Pain Present Pain Reported Location rt hip Intensity 4 Scale Used Numeric (0 - 10) Management Techniques Modification of Treatment,Re- positioning,Timing of Activity with Medications M4 OT- IP ADL's Start: 08/01/20 15:33 Freq: Status: Active Protocol: Document 08/01/20 15:33 CGR (Rec: 08/01/20 15:48 CGR [id number]) OT [id number] Comments OT Self-Feeding Comments Not meal time OT ADL-Grooming General Evaluation Grooming Ability Standby Assistance Areas Needing Assistance Face Washing Comments OT Grooming Comments standing at sink OT ADL-Oral Care Comments Oral Care Comments not performed OT ADL-Dressing Comments OT Dressing Comments Not performed, pt understands that he will need to use DME for LB dressing. OT ADL-Toileting Comments OT Toileting Comments Pt performed with nursing just prior to OT entering. Per nursing, pt has been unable to void OT ADL-Bathing Comments OT Bathing Comments not performed M5 OT- IP IADL's Start: 08/01/20 15:33 Freq: Status: Active Protocol: Document 08/01/20 15:33 CGR (Rec: 08/01/20 15:48 CGR [id number]) OT-Instrumental Activities of Daily Living Deficits IADL Deficits Identified Deficits Home Safety Awareness Awareness of Need for Assistance at Home Decreased Awareness Ability to Problem Solve Emergency Unable to Problem Solve Situations Medication Management Medication Management Comments Concerns regarding ability to perform safely Money Management Money Management Comments Concerns regarding ability to perform safely Meal Preparation Meal Preparation Comments Concerns regarding ability to perform safely Driving Teacher Driving Teacher Comments Concerns regarding ability to perform safely Driving Driving Comments Concerns regarding ability to perform safely M6 OT- IP Functional Cognition Start: 08/01/20 15:33 Freq: Status: Active Protocol: Document 08/01/20 15:33 CGR (Rec: 08/01/20 15:48 CGR [id number]) Cognitive Factors Limiting Selfcare Function Cognitive Ability Level of Alertness Alert Patient Orientation Name,Age,Birthday,Month,Date, Year,Day of Week,Place, Situation Attention Span Ability Capable of Focused Attention, Capable of Sustained Attention Cognitive Comments Cognitive Assessment Comments Pt is oriented but demonstrates incongruent thinking at times. Pt would benefit from a formal cognitive assessment. OT- Vision and Hearing OT- Hearing Assessment OT- Hearing Assessment Hearing Impaired,Use of Hearing Aids OT- Vision Assessment Vision History Cataracts Visual Attentiveness WFL Occular Pursuits WFL Visual Convergence WFL Vision Assessment Comments Pt has had cateract sx. M7 OT- IP Mobility and Balance Start: 08/01/20 15:33 Freq: Status: Active Protocol: Document 08/01/20 15:33 CGR (Rec: 08/01/20 15:48 CGR [id number]) OT- Bed Mobility Assessment Sit to Supine Sit to Supine Assist Contact Guard Assistance,1 Person Assistance Scooting Scooting to Edge of Bed Contact Guard Assistance,1 Person Assistance OT-Transfer Assessment Sit to and From Stand Sit to and from Stand Contact Guard Assistance,1 Person Assistance Transfers Transfer Ability Contact Guard Assistance,1 Person Assistance Technique Transfer Destination Bed,Chair Transfer Technique Stand Step Pivot Devices Transfer Assistive Devices Gait Belt,Front Wheeled Walker Comments Mobility Comments Pt was able to perform all mobility in todays session with CGA. Pt needed the use of a sheet used to support his R leg for sit to supine but was able to perform with CGA. OT- Balance Assessment Sitting Balance and Reactions Static Sitting Balance Ability Good Dynamic Sitting Balance Ability Good M8 OT- IP Objective Assessments Start: 08/01/20 15:33 Freq: Status: Active Protocol: Document 08/01/20 15:33 CGR (Rec: 08/01/20 15:48 CGR [id number]) OT Gross Range of Motion Upper Extremity Range of Motion Assessment Within Functional Limits OT Strength Upper Extremity Strength Assessment Within Functional Limits Comments Strength Comments grossly 4/5 throughout OT- Coordination Assessment Upper Extremity Finger to Nose Test Within Functional Limits Finger Tapping Test Within Functional Limits OT-Muscle Tone Assessment Muscle Tone WNL Yes OT Sensation Assessment Edema Edema Absent M9 OT- IP Assessment and Plan Start: 08/01/20 15:33 Freq: Status: Active Protocol: Document 08/01/20 15:33 CGR (Rec: 08/01/20 15:48 CGR [id number]) OT Summary Assessment and Plan Potential Rehabilitation Potential Good Analytic Complexity at Evaluation Moderate Summary OT Impairments Pain,Balance,Functional Cognition,Functional Mobility, Dressing,Toileting,Bathing, Toilet Transfers,Shower Transfers,Activity Tolerance Progress Towards Goals Slow Progress due to Pain Assessment Summary Pt presents as a moderate complexity evaluation s/p admit for fall with R hip fx. 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 Pt will continue to benefit from OT services. Pt is likely to progress for discharge home as he is doing well but managing a kohler with posterior hip precautions maybe problematic if the pt's urinary retention does not clear. Will continue to follow for OT services. Goals Grooming Goal Independent Dressing Goal Independent Toileting Goal Independent Bathing Goal Independent Toilet Transfer Goal Independent Shower Transfer Goal Independent Days to Meet Goals 10 Frequency of Treatment Frequency Of Treatment Once a Day Treatment Plan OT Treatment Plan ADL Training,Functional Cognition Training,Functional Mobility,Patient/Family Education,Discharge Planning Other Treatment Recommendations and Next shower, LB dressing training, Treatment Focus formal cog assessment. Discharge Recommendations OT Discharge Recommendations Home with Assistance,SNF Rehab Transportation Needs at Discharge Private Vehicle
--- NOTE | 2020-08-01 13:45 | PT.IPTN ---
Current Diagnoses Displaced midcervical fracture of right femur, initial encounter for closed fracture (07/31/20) Surgery Performed Operation Date: 07/31/20 15:00 Actual Procedures p Hip Hemiarthroplasty Dean(Right) - Elaine Parra MD Physical Therapy Treatment Note M2 PT-IP Current Condition Start: 08/01/20 08:22 Freq: NEEDED Status: Active Protocol: Document 08/01/20 09:31 AW (Rec: 08/01/20 10:57 AW [id number]) Physical Therapy Current Condition Current Condition Evaluation Date 08/01/20 Treatment Diagnosis R femoral neck fx s/p unipolar hip arthroplasty; difficulty in walking Onset Date 07/29/20 Precautions Posterior Hip Precautions No Hip Flexion > 90 degrees,No Hip Internal Rotation,No Hip Adduction Weight Bearing Status Weight Bearing Status Weight Bear as Tolerated M3 PT-IP Subjective Start: 08/01/20 08:22 Freq: NEEDED Status: Active Protocol: Document 08/01/20 13:48 AW (Rec: 08/01/20 14:01 AW [id number]) Subjective Physical Therapy Visit Type Type Treatment Note Visit Start Time 13:00 Visit Stop Time 13:25 Total Visit Minutes 25 Physical Therapy Visit Comments Patient Comments Pt is willing to work with PT Therapy Pain Assessment Pain When Pain Assessed During Mobility Pain Present Pain Present Pain Reported Location rt hip Intensity 5 Scale Used Numeric (0 - 10) Pain Management Techniques Distraction,Re-positioning, Timing of Activity with Medications M4 PT-IP Mobility and Gait Start: 08/01/20 08:22 Freq: NEEDED Status: Active Protocol: Document 08/01/20 13:48 AW (Rec: 08/01/20 14:01 AW [id number]) PT-Bed Mobility Assessment Supine to Sit Supine to Sit Standby Assistance Sit to Supine Sit to Supine Standby Assistance Scooting Scooting to Edge of Bed Standby Assistance PT-Transfer Assessment Sit to and From Stand Sit to and from Stand Contact Guard Assistance,1 Person Assistance,Use of Upper Extremities Equipment Transfer Assistive Device Gait Belt,Front Wheeled Walker Orthotic/Prosthetic Devices or Brace: Yes Transfers Transfer Destination Bed Transfer Technique Stand Step Pivot Transfer Ability Level of Assist Standby Assistance,Use of Upper Extremities Comments Mobility Comments Pt was lying in the bed as PT arrived and nursing was finishing with bladder scan. Pt completed sit to supine on the left side of the bed with good attention to precautions. He was able to scoot and position himself EOB. He stood from the bed in its lowest position CGA and used the FWW to ambulate in the halls a total of 250 feet SBA. He had two episodes of RLE instability/buckling but was able to recover without therapist assist. On return to the room, pt returned to the bed and elevated the RLE using a sheet SBA. Pt was left with call light and all needs in reach, bed alarm on for safety . Gait Assessment Gait Gait Assistance Required: Standby Assistance Distance (Feet) 225 Able to Maintain Weight Bearing Status Yes During Gait Assistive Devices Assistive Device Gait Belt,Front Wheeled Walker Orthotic/Prosthetic Devices or Brace: Yes Gait Deviations General Gait Pattern Antalgic,Decreased Stride Length,Decreased Feet Clearance,Step-to Gait Factors Limiting Gait Function Factors Limiting Gait Function Decreased Activity Tolerance, Decreased Strength,Difficulty Following Directions,Limited Range of Motion,Pain,Poor Balance,Poor Safety Awareness Comments Gait Comments See mobility comments for details. Stair Climbing Assessment Evaluation Level of Assist On Stairs Contact Guard Assistance Devices Stair Climbing Assistive Devices Left Railing Technique/Endurance Stair Climbing Direction Ascend and Descend Stair Climbing Technique Step to Step Number of Steps Climbed 3 Stair Climbing Set # Repetitions (reps) 1 Comments Stair Climbing Comments After education on technique, pt was able to complete one set of stairs with CGA and min cues for sequencing. PT-Balance Assessment Sitting Balance and Reactions Static Sitting Balance Ability Normal Dynamic Sitting Balance Ability Good Standing Balance and Reactions Static Standing Balance Ability Good Dynamic Standing Balance Ability Fair Device Used FWW M5 PT-IP Objective Assessments Start: 08/01/20 08:22 Freq: NEEDED Status: Active Protocol: Document 08/01/20 09:31 AW (Rec: 08/01/20 10:57 AW [id number]) Orientation Orientation/Cognition Level of Alertness Alert Orientation Name,Day of Week,Place, Situation Language Function Ability Hard of Hearing Safety Awareness Decreased Safety Awareness Gross Range of Motion Lower Extremity ROM Assessment Right Impaired Strength Lower Extremity Strength Assessment Right Impaired Hip 3-/5 Knee 4-/5 Coordination Assessment Gross Coordination Gross Coordination WNL Sensation Assessment Sensation Gross Sensation WNL Muscle Tone Muscle Tone WNL Yes M6 PT-IP Treatment Start: 08/01/20 08:22 Freq: NEEDED Status: Active Protocol: Document 08/01/20 13:48 AW (Rec: 08/01/20 14:01 AW [id number]) Physical Therapy Treatment Education Education Provided Precautions,Weight Bearing Status,Safety Other Treatments Other Treatment Performed Informed pt of equipment needs for home and recommendation for home health therapy and bath aide. M7 PT-IP Assessment and Plan Start: 08/01/20 08:22 Freq: NEEDED Status: Active Protocol: Document 08/01/20 13:48 AW (Rec: 08/01/20 14:01 AW [id number]) PT Summary Assessment and Plan Potential Rehabilitation Potential Good Summary Impairments Pain,ROM,Strength,Balance,Bed Mobility,Transfers,Gait Progress Towards Goals Progressing Toward Goals Assessment Summary Berto progressed his safe mobility significantly but experienced instability or buckling of the RLE on two occasions during gait with FWW . He was able to recover without therapist assist. He completed stair training but would benefit from review at next session. Pt likely safe to go home with assist and HH at discharge. Caregiver training with pt's may be helpful though she would not be able to provide much assist other than cues. Goals Bed Mobility Goal Independent Transfer Goal Independent,Front Wheeled Walker Gait Goal Independent,Front Wheel Walker Gait Distance 150 Other Goals - up/down two steps with left rail ascending SBA Days to Meet Goals 4 Frequency of Treatment Frequency Of Treatment Twice a Day Treatment Plan Physical Therapy Treatment Plan Bed Mobility Training,Transfer Training,Gait Training, Therapeutic Exercise,Balance Retraining,Post Op Education, Discharge Planning,Hot or Cold Pack Precautions Posterior Hip Precautions No Hip Flexion > 90 degrees,No Hip Internal Rotation,No Hip Adduction Other Precautions WBAT RLE Recommendations To Nursing Amount of Assist Needed Standby Assistance Discharge Recommendations PT Discharge Recommendations Home with Assistance,Home Health,SNF Rehab Other Discharge Recommendations SNF vs home with assist and HH Equipment Needed for Home Before FWW, RTS with handles, shower Discharge stool if going home Transportation Needs at Discharge Private Vehicle
--- NOTE | 2020-08-01 14:15 | PC.NURSE ---
Pt unable to void x3 attempts, post kohler catheter removal at 1000. Bladder scanned x3 attempts, initial =4ml, 2nd= 9ml, 3rd= 26ml. Dr. Lozano not in office, wrote note, left at his office informing him of occurrence. 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 Pt's also reports that pt has had an issue with urinary retention post operatively in the past, requiring a leg bag kohler catheter after discharge. Pt encouraged to drink plenty of fluids.
[2020-08-01] MEDS: TAMSULOSIN 0.4 MG CAPSULE PO (20:26)
--- NOTE | 2020-08-01 22:16 | PC.NURSE ---
1800 bladder scan 225cc. pt unable to void. 2100 pt voided 100cc, PVR was 435cc, in and out cath per provider, 700cc urine out.
[2020-08-02 00:27] VITALS: BP 151/80; PULSE 61; RESP 18; TEMP 36.4; O2SAT 96
[2020-08-02] MEDS: IBUPROFEN 400 MG TABLET PO ×2 (04:51→09:16)
[2020-08-02 04:56] VITALS: BP 146/81; PULSE 76; RESP 18; TEMP 36.6; O2SAT 99
[2020-08-02 06:25] LABS: Add Manual Diff / Slide Review NO; Basophils Absolute Auto 0 /uL (0-100); Basophils Percent Auto 0.4 % (0-2); Eosinophils Absolute Auto 400 /uL (0-450); Eosinophils Percent Auto 4.4 % (2-4); Hematocrit 37.8 % (41-53); Hemoglobin 12.6 g/dL (13.5-17.5); Lymphocytes Absolute Auto 1000 /uL (1100-4500); Lymphocytes Percent Auto 11.3 % (25-40); Mean Corpuscular HGB Conc 33.2 % (30-36); Mean Corpuscular Hemoglobin 31.2 PG (26-34); Monocytes Absolute Auto 800 /uL (0-900); Monocytes Percent Auto 8.5 % (3-14); Neutrophils Absolute Auto 6800 /uL (1500-7000); Neutrophils Percent Auto 75.4 % (50-75); Platelet Count 170 X10^3/uL (150-400); Red Blood Cell Count 4.02 X10^6/uL (4.5-5.9); Red Cell Distribution Width 14.4 % (11.6-14.8)
[2020-08-02 06:30] LABS: BUN Creatinine Ratio 23.2 (6-22); Blood Urea Nitrogen 29 mg/dL (9-20); Calcium 8.7 mg/dL (8.4-10.2); Carbon Dioxide 25 mmol/L (22-32); Chloride 106 mmol/L (98-107); Estimated Glomerular Filt Rate 55.2 mL/min (>60); Glucose 90 mg/dL (80-110); HEMOLYSIS < 15 (0-50); Magnesium 2.2 mg/dL (1.6-2.3); Potassium 4.2 mmol/L (3.4-5.1); Sodium 135 mmol/L (137-145)
--- NOTE | 2020-08-02 07:41 | PM.DS.1 ---
History of Present Illness History of Present Illness Date Patient Seen: 08/02/20 Time Patient Seen: 07:41 Chief complaint: HIP PAIN Discharge Providers Provider Date of admission: 07/31/20 13:05 Primary care physician: Oliver Moy DO Consults: 07/31/20 18:17 Consult to Discharge Planning Routine Comment: Consult to Physical Therapy Evaluate & Treat Comment: Physician Instructions: post op HOLLY protocol Consult to Respiratory Therapy Evaluate & Treat Comment: Physician Instructions: Evaluate and treat 08/01/20 08:19 Consult to Occupational Therapy Evaluate & Treat Comment: Physician Instructions: Evaluate and treat Discharge provider: Luís Dunaway PA-C Exam Vital Signs (past 8 hours): - 08/02/20 00:27 08/02/20 04:56 Temperature 97.6 F 97.8 F Pulse Rate 61 76 Respiratory Rate 18 18 Blood Pressure 151/80 H 146/81 H Pulse Oximetry 96 99 Oxygen Delivery Method Room Air Oxygen Flow Rate 0 Objective Labs Result Diagrams: 08/02/20 05:37 08/02/20 05:37 Labs: Laboratory Results - last 24 hr 08/02/20 08/02/20 05:37 05:37 WBC 9.0 RBC 4.02 L Hgb 12.6 L Hct 37.8 L MCV 94.0 MCH 31.2 MCHC 33.2 RDW 14.4 Plt Count 170 Neut % (Auto) 75.4 H Lymph % (Auto) 11.3 L Reynolds % (Auto) 8.5 Eos % (Auto) 4.4 H Baso % (Auto) 0.4 Neut # (Auto) 6800 Lymph # (Auto) 1000 L Reynolds # (Auto) 800 Eos # (Auto) 400 Baso # (Auto) 0 Sodium 135 L Potassium 4.2 Chloride 106 Carbon Dioxide 25 BUN 29 H Creatinine 1.25 Estimated GFR 55.2 L BUN/Creatinine Ratio 23.2 H Glucose 90 Calcium 8.7 Magnesium 2.2 PFSH Medical History Anemia (~2009) Bradycardia Cardiac arrhythmia Fatigue Hearing loss (~1989) Hiatal hernia Mumps (~194) Pain in lower back Shortness of breath on exertion Shoulder pain (~2003) Tinnitus (~1989) Surgical History Anesthesia History of hernia repair (~05/2016) Family History Father Ruptured, aorta Sister Giant cell arteritis Social History household members: spouse Smoking Status: Former smoker Tobacco: How many years used: 20 quit status: quit date established (05/07/1979) alcohol intake: current substance use type: does not use Discharge Plan Discharge Plan Patient Disposition: Home Health Service Transfer to: Home Health, Other Provider Discharge Comment: Requires cap hospitalist, PT/OT clearance for discharge with home health services arranged by social Work. Discharge orders & Medications Prescriptions: New acetaminophen 325 mg Tablet 650 mg PO TID PRN (Reason: Breakthrough Pain, Mild) Qty: 60 RF: 0 aspirin 81 mg Tablet,Delayed Release (Dr/Ec) 81 mg PO BID Qty: 90 RF: 0 tamsulosin [Flomax] 0.4 mg Capsule 0.4 mg PO BEDTIME Qty: 30 RF: 0 docusate sodium [DOK] 100 mg Capsule 100 mg PO BID PRN (Reason: Constipation) Qty: 60 RF: 0 oxycodone 5 mg Tablet 2.5 - 5 mg PO Q4-5H PRN (Reason: Pain, Moderate (4-6)) Qty: 60 RF: 0 Discontinued diphenhydramine HCl 50 mg capsule 50 mg PO BEDTIME PRN (Reason: Sleep) RF: 0 Follow up/Referrals: Oliver Moy DO [Primary Care Provider] - (Follow-up in 1 week for urinary retention) Elaine Parra MD [Physician] - (Follow-up in 2 weeks for re-evaluation) Discharge Health Status Health Concerns: Patient started on Flomax per Dr. Hoskins hospitalist at [facility] and should follow up with PCP in 1 week for re-evaluation of urinary retention. Diet/Activity/Treatments Diet: Diet as Tolerated Activity: Weight-bearing as tolerated on right lower extremity with front wheel walker, fall and posterior dislocation precautions as per PT total joint protocol. Cold/Heat Therapy: Ice 20 minutes on per hour as tolerated Skin/Wound/Dressing Care Report to your healthcare provider any signs of infection, such as:: chills, fever, night sweats, increased pain, unusual drainage and unusual redness Dressing: Keep dressing clean, dry and intact. Call if soiled or saturated. Visit Report/Discharge Packet Instructions: DI for Hip Replacement, DI for Prescription Opioid Use Stand Alone Forms: Surgery Discharge Discharge Data Primary Care Provider: Oliver Moy
--- NOTE | 2020-08-02 07:55 | P.PN_ITS ---
Subjective Subjective Date Patient Seen: 08/02/20 Time Patient Seen: 07:55 Interval history: No significant issues overnight. Pain adequately controlled with oral analgesics. Patient reports voiding normally without difficulty since he started on Flomax. Has been out of bed and walking lap around [place]. Verbalize understanding postoperative care instructions and plan for disposition home with home health services and follow up with PCP in 1 week for urinary re tention as well as 2 weeks with orthopedic surgeon for re-evaluation or sooner as needed. Exam Vital Signs (past 8 hours): - 08/02/20 00:27 08/02/20 04:56 Temperature 97.6 F 97.8 F Pulse Rate 61 76 Respiratory Rate 18 18 Blood Pressure 151/80 H 146/81 H Pulse Oximetry 96 99 Oxygen Delivery Method Room Air Oxygen Flow Rate 0 Narrative Exam Narrative: Well-developed and nourished 85-year-old male in no apparent distress who is alert and oriented x3 seeing resting comfortably in his bed this a.m.. His wound is clean, dry and intact without darron incisional ecchymosis and minimal appropriate tenderness to palpation. His distal infected right lower extremity is neurovascularly intact with normal motor function. There is no sign or symptom of DVT bilaterally. Objective Labs Result Diagrams: 08/02/20 05:37 08/02/20 05:37 Labs: Laboratory Results - last 24 hr 08/02/20 08/02/20 05:37 05:37 WBC 9.0 RBC 4.02 L Hgb 12.6 L Hct 37.8 L MCV 94.0 MCH 31.2 MCHC 33.2 RDW 14.4 Plt Count 170 Neut % (Auto) 75.4 H Lymph % (Auto) 11.3 L [place] % (Auto) 8.5 Eos % (Auto) 4.4 H Baso % (Auto) 0.4 Neut # (Auto) 6800 Lymph # (Auto) 1000 L [place] # (Auto) 800 Eos # (Auto) 400 Baso # (Auto) 0 Sodium 135 L Potassium 4.2 Chloride 106 Carbon Dioxide 25 BUN 29 H Creatinine 1.25 Estimated GFR 55.2 L BUN/Creatinine Ratio 23.2 H Glucose 90 Calcium 8.7 Magnesium 2.2 PFSH Medical History Anemia (~2009) Bradycardia Cardiac arrhythmia Fatigue Hearing loss (~1989) Hiatal hernia Mumps (~1948) Pain in lower back Shortness of breath on exertion Shoulder pain (~2003) Tinnitus (~1989) Surgical History Anesthesia History of hernia repair (~05/2016) Family History Father Ruptured, aorta Sister Giant cell arteritis Social History household members: spouse Smoking Status: Former smoker Tobacco: How many years used: 20 quit status: quit date established (05/07/1979) alcohol intake: current substance use type: does not use Assessment & Plan Post-op Postoperative Procedures: Procedures Operation Date: 07/31/20 15:00 Actual Procedures Side Surgeon p Hip Hemiarthroplasty Dean Right Elaine Parra MD Postoperative status: doing well and urinary retention (Resolved with Flomax) Postoperative status narrative: 85-year-old male postoperative day 2. Status post right hemiarthroplasty performed secondary to unipolar fracture after groun d level fall is overall doing well and stable for discharge. Postoperative plan: routine post-op care and discharge (After clearance from attending hospitalist, PT/OT and social work has arranged home health.) Postoperative plan narrative: - Postoperative total joint care protocols apply including posterior dislocation precautions - Weight-bearing as tolerated on right lower extremity with front wheel walker and fall precautions - DVT prophylaxis aspirin 81 mg b.i.d. for 6 weeks - Keep wound clean, dry and intact - Home Health Services PT/OT and corrective and manual arts therapist to evaluate and treat as needed or outpatient services to be arranged. - Follow-up in 1 week with PCP for re-evaluation of urinary retention - Follow-up in 2 weeks with orthopedic surgeon for staple removal and re- evaluation or sooner as needed. Time Spent With Patient Time with patient: 15-24 minutes
[2020-08-02 08:00] VITALS: BP 142/95; PULSE 77; RESP 18; TEMP 36.6; O2SAT 93
[2020-08-02] MEDS: ACETAMINOPHEN 325 MG TABLET 650 MG PO (09:15)
[2020-08-02] MEDS: DOCUSATE 100 MG CAPSULE PO (09:16)
[2020-08-02] MEDS: ASPIRIN EC 81 MG TABLET PO (09:16)
--- NOTE | 2020-08-02 10:39 | OT.IP.TRT ---
Current Diagnoses Displaced midcervical fracture of right femur, initial encounter for closed fracture (07/31/20) Surgery Performed Operation Date: 07/31/20 15:00 Actual Procedures p Hip Hemiarthroplasty Dean(Right) - Elaine Parra MD Occupational Therapy Treatment Note M2 OT-IP Current Condition Start: 08/01/20 15:33 Freq: Status: Active Protocol: Document 08/01/20 15:33 CGR (Rec: 08/01/20 15:48 CGR [id number]) Occupational Therapy Current Condition Current Condition Evaluation Date 08/01/20 Treatment Diagnosis Fall with hip fx s/p R unipolar hp replacment with posterior precautions. Diagnosis Onset Date 07/31/20 Post Operative Precautions Posterior Hip Precautions No Hip Flexion > 90 degrees,No Hip Internal Rotation,No Hip Adduction Weight Bearing Status Weight Bearing Status Weight Bear as Tolerated M3 OT- IP Subjective and Pain Start: 08/01/20 15:33 Freq: Status: Active Protocol: Document 08/02/20 14:17 CGR (Rec: 08/02/20 14:26 CGR [id number]) OT- Subjective Occupational Therapy Visit Type Type Progress Note Visit Start Time 09:25 Visit Stop Time 10:39 Total Visit Minutes 74 OT Pain Assessment Pain When Pain Assessed During Mobility Pain Present Pain Present Pain Reported Location rt hip Intensity 2 Scale Used Numeric (0 - 10) Management Techniques Distraction,Modification of Treatment,Re-positioning, Timing of Activity with Medications M4 OT- IP ADL's Start: 08/01/20 15:33 Freq: Status: Active Protocol: Document 08/02/20 14:17 CGR (Rec: 08/02/20 14:26 CGR [id number]) OT [id number] Comments OT Self-Feeding Comments Not meal time OT ADL-Grooming General Evaluation Grooming Ability Independent Areas Needing Assistance Face Washing Comments OT Grooming Comments seated in shower OT ADL-Oral Care Comments Oral Care Comments not performed OT ADL-Dressing General Eval Upper Body Dressing Ability Independent Lower Body Dressing Ability Standby Assistance Areas Needing Assistance Pull-Over Shirt,Underpants/ Brief,Pants/Shorts,Socks,Shoes Assistive Devices Dressing Assistive Devices Building Construction Estimator,Sock Aid Comments OT Dressing Comments Pt provided with and educated on LB dressing equipment. Pt found the sock aid that was provided to be small for his foot and was educated on a wider sock aide that he could purchase. Item found for pt on pt's phone fr easy order when ready. Pt was able to don socks, pants, underwear and shirt with verbal cues and fair safety. OT ADL-Toileting Comments OT Toileting Comments Not performed OT ADL-Bathing Bathing Type Bathing Type Shower General Evaluation Bathing Ability Minimal Assistance Areas Needing Assistance Wash/Dry Lower Extremities Devices Bathing Equipment Shower Chair with Arms,Grab Bars Comments OT Bathing Comments Pt educated on shower transfer and performed bathing seated on chair. Pt states that his as obtained a shower chair with handles for his home use. M5 OT- IP IADL's Start: 08/01/20 15:33 Freq: Status: Active Protocol: Document 08/01/20 15:33 CGR (Rec: 08/01/20 15:48 CGR [id number]) OT-Instrumental Activities of Daily Living Deficits IADL Deficits Identified Deficits Home Safety Awareness Awareness of Need for Assistance at Home Decreased Awareness Ability to Problem Solve Emergency Unable to Problem Solve Situations Medication Management Medication Management Comments Concerns regarding ability to perform safely Money Management Money Management Comments Concerns regarding ability to perform safely Meal Preparation Meal Preparation Comments Concerns regarding ability to perform safely Range Feeder Range Feeder Comments Concerns regarding ability to perform safely Driving Driving Comments Concerns regarding ability to perform safely M6 OT- IP Functional Cognition Start: 08/01/20 15:33 Freq: Status: Active Protocol: Document 08/01/20 15:33 CGR (Rec: 08/01/20 15:48 CGR [id number]) Cognitive Factors Limiting Selfcare Function Cognitive Ability Level of Alertness Alert Patient Orientation Name,Age,Birthday,Month,Date, Year,Day of Week,Place, Situation Attention Span Ability Capable of Focused Attention, Capable of Sustained Attention Cognitive Comments Cognitive Assessment Comments Pt is oriented but demonstrates incongruent thinking at times. Pt would benefit from a formal cognitive assessment. OT- Vision and Hearing OT- Hearing Assessment OT- Hearing Assessment Hearing Impaired,Use of Hearing Aids OT- Vision Assessment Vision History Cataracts Visual Attentiveness WFL Occular Pursuits WFL Visual Convergence WFL Vision Assessment Comments Pt has had cateract sx. M7 OT- IP Mobility and Balance Start: 08/01/20 15:33 Freq: Status: Active Protocol: Document 08/02/20 14:17 CGR (Rec: 08/02/20 14:26 CGR [id number]) OT- Bed Mobility Assessment Supine to Sit Supine to Sit Assist Standby Assistance Scooting Scooting to Edge of Bed Standby Assistance OT-Transfer Assessment Sit to and From Stand Sit to and from Stand Standby Assistance,Contact Guard Assistance Transfers Transfer Ability Standby Assistance,Contact Guard Assistance Technique Transfer Destination Bed,Bedside Commode,Chair, Shower Stall Transfer Technique Stand Step Pivot Devices Transfer Assistive Devices Gait Belt,Front Wheeled Walker Comments Mobility Comments CGA for safety in shower but otherwise SBA for all mobility with the walker. OT- Gait Assessment Gait Gait Assistance Required: Standby Assistance Assistive Devices Assistive Device Gait Belt,Front Wheeled Walker Comments Gait Ability Comments mobility around the room OT- Balance Assessment Sitting Balance and Reactions Static Sitting Balance Ability Good Dynamic Sitting Balance Ability Good M8 OT- IP Objective Assessments Start: 08/01/20 15:33 Freq: Status: Active Protocol: Document 08/01/20 15:33 CGR (Rec: 08/01/20 15:48 CGR [id number]) OT Gross Range of Motion Upper Extremity Range of Motion Assessment Within Functional Limits OT Strength Upper Extremity Strength Assessment Within Functional Limits Comments Strength Comments grossly 4/5 throughout OT- Coordination Assessment Upper Extremity Finger to Nose Test Within Functional Limits Finger Tapping Test Within Functional Limits OT-Muscle Tone Assessment Muscle Tone WNL Yes OT Sensation Assessment Edema Edema Absent M9 OT- IP Assessment and Plan Start: 08/01/20 15:33 Freq: Status: Active Protocol: Document 08/02/20 14:17 CGR (Rec: 08/02/20 14:26 CGR [id number]) OT Summary Assessment and Plan Potential Rehabilitation Potential Good Analytic Complexity at Evaluation Moderate Summary OT Impairments Pain,Balance,Functional Cognition,Functional Mobility, Dressing,Toileting,Bathing, Toilet Transfers,Shower Transfers,Activity Tolerance Progress Towards Goals Slow Progress due to Pain Assessment Summary Pt presents as a moderate complexity evaluation s/p admit for fall with R hip fx. Pt underwent 4/3 R unipolar hip replacement with urinary retention now resolved. Pt performed LB dressing training and shower on this date with improvement in his mobility and safety awareness. Pt is safe for discharge home with family . Goals Grooming Goal Independent Dressing Goal Independent Toileting Goal Independent Bathing Goal Independent Toilet Transfer Goal Independent Shower Transfer Goal Independent Days to Meet Goals 10 Frequency of Treatment Frequency Of Treatment Once a Day Treatment Plan OT Treatment Plan ADL Training,Functional Cognition Training,Functional Mobility,Patient/Family Education,Discharge Planning Discharge Recommendations OT Discharge Recommendations Home with Assistance,SNF Rehab Transportation Needs at Discharge Private Vehicle
--- NOTE | 2020-08-02 11:11 | PM.DS.1 ---
History of Present Illness History of Present Illness Date Patient Seen: 08/02/20 Time Patient Seen: 11:11 Chief complaint: HIP PAIN Narrative: Sloan Cano is an 85-year-old male with no significant past medical history who presented to the emergency room with worsening right hip pain after a fall 2 days ago. Patient states that he had a mechanical fall over an exposed bolt when shuffling sideways and fell onto his right side. He had immediate pain afterwards, which he tried to take oral pain medications at home but this did not seem to make his leg better. His leg pain continue to worsen and he was starting to become very weak so this is why he came to the emergency room today. Prior to the fall he experienced no dizziness, chest pain, palpitations. He has no recent shortness of breath or dyspnea on exertion. He is able to row about 10 miles on his home exercise machine. He does endorse alcohol use of about 2-3 beers per day. He denies history of shaking or withdrawal symptoms when he does not drink. He has not had a drink since his fall 2 days ago. He did have a cardiac workup as an outpatient last year, which was fairly unremarkable. His EKG stress test was unremarkable and his Holter monitor showed frequent PACs, some episodes of nonsustained ventricular tachycardia, but no other tachyarrhythmias or bradyarrhythmias. In the emergency room, the patient was mildly hypertensive, but the remainder is vital signs were unremarkable. Initial laboratory evaluation showed an unremarkable CBC, normal coagulation studies. Chemistries revealed a creatinine of 1.25 with an EGFR 55.2 but the remainder of his chemistries were unremarkable. COVID-19 testing was negative. X-ray of his right hip reveals a transcervical fracture of his right femur. Discharge Providers Provider Date of admission: 07/31/20 13:05 Discharge Date: 08/02/20 Primary care physician: Oliver Moy DO Consults: 07/31/20 18:17 Consult to Discharge Planning Routine Comment: Consult to Physical Therapy Evaluate & Treat Comment: Physician Instructions: post op HOLLY protocol Consult to Respiratory Therapy Evaluate & Treat Comment: Physician Instructions: Evaluate and treat 08/01/20 08:19 Consult to Occupational Therapy Evaluate & Treat Comment: Physician Instructions: Evaluate and treat Discharge provider: Joaquim Lozano DO Summary Hospital Course Discharge Diagnosis: Please see hospital course by problem list noted below. Hospital Course: Sloan Cano is an 85-year-old male with no significant past medical history who presented to the emergency room with worsening right hip pain after a fall 2 days prior to admission. He was admitted with a right transcervical femur fracture, and is status post right hip unipolar replacement. He did well with physical therapy after surgery and his pain was controlled. He was discharged home with plan for follow-up with Orthopedic surgery as an outpatient. 1. R transcervical femur fracture, acute, present on admission - appreciate orthopedic surgery, Dr. Elaine Parra, and her time for management. She performed right hip unipolar replacement on July 31. - suspect pathologic given the nature of his fall secondary to likely osteoporosis. -Patient's postoperative course was uncomplicated. His hemoglobin on admission was 15.9, did drop slightly to 12 but remained stable on repeat consistent with a post surgical anemia. 2. Elevated blood pressure without a diagnosis of hypertension, acute, present on admission. - suspect secondary to pain. Recommend additional follow-up with his primary care provider when pain improves. His blood pressure was borderline elevated on discharge. 3. Irregular heart beat, chronic - patient has had extensive evaluation within the year including EKG stress testing and holter which showed PACs and a runs of NSVT. Patient denies current symptoms. No evidence of atrial fibrillation. -telemetry was unremarkable during his hospital course. -EKG in the emergency room showed marked sinus arrhythmia with frequent PACs, no significant ST or T-wave changes indicative of ischemia. 4. Acute urinary retention, present on admission - patient unable to void since day prior to admission, bladder scan with >800 cc. May be in setting of acute fracture, will continue to monitor after surgery. Hewitt placed upon arrival to the floor. -urinalysis performed was not indicative of an acute urinary tract infection. -patient was started on Flomax and this should be continued on discharge. He was adequately voiding on the day of discharge. Would recommend reassessment with his primary care provider to see if Flomax should be continued. Status at Discharge Cognitive/behavioral status at discharge: oriented Functional status at discharge: uses cane/walker Overall status at discharge: patient is progressing back to baseline Time Spent with Patient Time spent: Less than 30 minutes Exam Vital Signs (past 8 hours): - 08/02/20 04:56 08/02/20 08:00 Temperature 97.8 F 97.9 F Pulse Rate 76 77 Respiratory Rate 18 18 Blood Pressure 146/81 H 142/95 H Pulse Oximetry 99 93 Oxygen Delivery Method Room Air Oxygen Flow Rate 0 Narrative Exam Narrative: GENERAL APPEARANCE: Well developed, well nourished, in no acute distress. SKIN: Inspection of the skin reveals no rashes, ulcerations or petechiae. HEENT: Normocephalic atraumatic, extraocular muscles are intact, oropharynx is clear and mucous membranes are moist, neck is supple without adenopathy NECK: Supple and symmetric. There was no thyroid enlargement, and no tenderness, or masses were felt. CHEST: Normal AP diameter and normal contour without any kyphoscoliosis. LUNGS: Auscultation of the lungs revealed no wheezes, rhonchi, or rales. CARDIOVASCULAR: Irregular heart rhythm with a normal rate, no murmurs, gallops, rubs. Peripheral pulses were 2+ and symmetric. NEUROLOGIC: Alert and oriented x 3. Normal affect. No focal deficits. Objective Labs Result Diagrams: 08/02/20 05:37 08/02/20 05:37 Labs: Laboratory Results - last 24 hr 08/02/20 08/02/20 05:37 05:37 WBC 9.0 RBC 4.02 L Hgb 12.6 L Hct 37.8 L MCV 94.0 MCH 31.2 MCHC 33.2 RDW 14.4 Plt Count 170 Neut % (Auto) 75.4 H Lymph % (Auto) 11.3 L [place] % (Auto) 8.5 Eos % (Auto) 4.4 H Baso % (Auto) 0.4 Neut # (Auto) 6800 Lymph # (Auto) 1000 L [place] # (Auto) 800 Eos # (Auto) 400 Baso # (Auto) 0 Sodium 135 L Potassium 4.2 Chloride 106 Carbon Dioxide 25 BUN 29 H Creatinine 1.25 Estimated GFR 55.2 L BUN/Creatinine Ratio 23.2 H Glucose 90 Calcium 8.7 Magnesium 2.2 PFSH Medical History Anemia (~2009) Bradycardia Cardiac arrhythmia Fatigue Hearing loss (~1989) Hiatal hernia Mumps (~194) Pain in lower back Shortness of breath on exertion Shoulder pain (~2003) Tinnitus (~1989) Surgical History Anesthesia History of hernia repair (~05/2016) Family History Father Ruptured, aorta Sister Giant cell arteritis Social History household members: spouse Smoking Status: Former smoker Tobacco: How many years used: 20 quit status: quit date established (05/07/1979) alcohol intake: current substance use type: does not use Discharge Plan Discharge Plan Patient Disposition: Home Health Service Transfer to: Home Health, Other Provider Discharge Comment: Requires Attending Hospitalist, PT/OT clearance for discharge with home health services arranged by social Work. Discharge orders & Medications Prescriptions: New acetaminophen 325 mg Tablet 650 mg PO TID PRN (Reason: Breakthrough Pain, Mild) Qty: 60 RF: 0 aspirin 81 mg Tablet,Delayed Release (Dr/Ec) 81 mg PO BID Qty: 90 RF: 0 tamsulosin [Flomax] 0.4 mg Capsule 0.4 mg PO BEDTIME Qty: 30 RF: 0 docusate sodium [DOK] 100 mg Capsule 100 mg PO BID PRN (Reason: Constipation) Qty: 60 RF: 0 oxycodone 5 mg Tablet 2.5 - 5 mg PO Q4-5H PRN (Reason: Pain, Moderate (4-6)) Qty: 60 RF: 0 Discontinued diphenhydramine HCl 50 mg capsule 50 mg PO BEDTIME PRN (Reason: Sleep) RF: 0 Follow up/Referrals: Oliver Moy DO [Primary Care Provider] - (Follow-up in 1 week for urinary retention) Elaine aPrra MD [Physician] - (Follow-up in 2 weeks for re-evaluation) Discharge Health Status Health Concerns: Patient started on Flomax per Dr. Hoskins hospitalist at [facility] and should follow up with PCP in 1 week for re-evaluation of urinary retention. Diet/Activity/Treatments Diet: Diet as Tolerated Activity: Weight-bearing as tolerated on right lower extremity with front wheel walker, fall and posterior dislocation precautions as per PT total joint protocol. Cold/Heat Therapy: Ice 20 minutes on per hour as tolerated Skin/Wound/Dressing Care Report to your healthcare provider any signs of infection, such as:: chills, fever, night sweats, increased pain, unusual drainage and unusual redness Dressing: Keep dressing clean, dry and intact. Call if soiled or saturated. Visit Report/Discharge Packet Instructions: DI for Hip Replacement, DI for Prescription Opioid Use Stand Alone Forms: Surgery Discharge Discharge Data Primary Care Provider: Oliver Moy
--- NOTE | 2020-08-02 11:20 | PC.NURSE ---
Patient A/O x 4. Resting in bed, RA 98%, lungs CTA. Denies pain at this time. Pulses equal, intact. Dressing on R Hip is CDI. Patient up with PT and OT. SBA with FWW. IV removed from L FA for discharge. Patient's is bedside for discharge education. Patient and educated on f/u appointments, both verbalized understanding. Educated on post op s/s of infection, home health, fall risks, and medications. Patient discharged via wheelchair, prescriptions given to .
--- NOTE | 2020-08-02 11:21 | PT.IPTN ---
Current Diagnoses Displaced midcervical fracture of right femur, initial encounter for closed fracture (07/31/20) Surgery Performed Operation Date: 07/31/20 15:00 Actual Procedures p Hip Hemiarthroplasty Dean(Right) - Elaine Parra MD Physical Therapy Treatment Note M2 PT-IP Current Condition Start: 08/01/20 08:22 Freq: NEEDED Status: Active Protocol: Document 08/01/20 09:31 AW (Rec: 08/01/20 10:57 AW [id number]) Physical Therapy Current Condition Current Condition Evaluation Date 08/01/20 Treatment Diagnosis R femoral neck fx s/p unipolar hip arthroplasty; difficulty in walking Onset Date 07/29/20 Precautions Posterior Hip Precautions No Hip Flexion > 90 degrees,No Hip Internal Rotation,No Hip Adduction Weight Bearing Status Weight Bearing Status Weight Bear as Tolerated M3 PT-IP Subjective Start: 08/01/20 08:22 Freq: NEEDED Status: Active Protocol: Document 08/02/20 11:21 AW (Rec: 08/02/20 11:38 AW [id number]) Subjective Physical Therapy Visit Type Type Treatment Note Visit Start Time 11:03 Visit Stop Time 11:21 Total Visit Minutes 18 Notes Pt's spouse is present and participates in caregiver training Physical Therapy Visit Comments Patient Comments Pt is preparing for discharge, willing to work with PT Therapy Pain Assessment Pain When Pain Assessed During Mobility Pain Present Pain Present Pain Reported Location rt hip Scale Used not quantified M4 PT-IP Mobility and Gait Start: 08/01/20 08:22 Freq: NEEDED Status: Active Protocol: Document 08/02/20 11:21 AW (Rec: 08/02/20 11:38 AW [id number]) PT-Transfer Assessment Sit to and From Stand Sit to and from Stand Standby Assistance,Use of Upper Extremities Equipment Transfer Assistive Device Gait Belt,Front Wheeled Walker Orthotic/Prosthetic Devices or Brace: Yes Transfers Transfer Destination Chair Transfer Technique Stand Step Pivot Transfer Ability Level of Assist Contact Guard Assistance,1 Person Assistance Comments Mobility Comments Pt was sitting up in chair, dressed in street clothes and preparing for d/c as PT arrived. He stood from the chair with good awareness of hip precautions, ambulated around the unit, completed stair training, and returned to the room with FWW SBA. Gait Assessment Gait Gait Assistance Required: Standby Assistance Distance (Feet) 150 Able to Maintain Weight Bearing Status Yes During Gait Assistive Devices Assistive Device Gait Belt,Front Wheeled Walker Orthotic/Prosthetic Devices or Brace: Yes Gait Deviations General Gait Pattern Antalgic,Decreased Stride Length,Decreased Feet Clearance,Flexed Trunk Factors Limiting Gait Function Factors Limiting Gait Function Decreased Activity Tolerance, Decreased Strength,Limited Range of Motion,Pain Comments Gait Comments Pt ambulated with decreased weightbearing through the walker, improved step through pattern, and good safety awareness. Stair Climbing Assessment Evaluation Level of Assist On Stairs Standby Assistance Devices Stair Climbing Assistive Devices Left Railing Technique/Endurance Stair Climbing Direction Ascend and Descend Stair Climbing Technique Step to Step Number of Steps Climbed 3 Stair Climbing Set # Repetitions (reps) 1 Comments Stair Climbing Comments Pt sequenced stairs without verbal cues. PT-Balance Assessment Sitting Balance and Reactions Static Sitting Balance Ability Normal Dynamic Sitting Balance Ability Good Standing Balance and Reactions Static Standing Balance Ability Good Dynamic Standing Balance Ability Good Device Used FWW M5 PT-IP Objective Assessments Start: 08/01/20 08:22 Freq: NEEDED Status: Active Protocol: Document 08/01/20 09:31 AW (Rec: 08/01/20 10:57 AW [id number]) Orientation Orientation/Cognition Level of Alertness Alert Orientation Name,Day of Week,Place, Situation Language Function Ability Hard of Hearing Safety Awareness Decreased Safety Awareness Gross Range of Motion Lower Extremity ROM Assessment Right Impaired Strength Lower Extremity Strength Assessment Right Impaired Hip 3-/5 Knee 4-/5 Coordination Assessment Gross Coordination Gross Coordination WNL Sensation Assessment Sensation Gross Sensation WNL Muscle Tone Muscle Tone WNL Yes M6 PT-IP Treatment Start: 08/01/20 08:22 Freq: NEEDED Status: Active Protocol: Document 08/02/20 11:21 AW (Rec: 08/02/20 11:38 AW [id number]) Physical Therapy Treatment Education Education Provided Precautions,Weight Bearing Status,Safety Equipment Issued Equipment Type and Company FWW from [employer] [facility]. Other Treatments Other Treatment Performed Pt's spouse present for training. She understood all precautions and weightbearing status. She was able to provide appropriate level of assist and good cues for safe mobility. M7 PT-IP Assessment and Plan Start: 08/01/20 08:22 Freq: NEEDED Status: Active Protocol: Document 08/02/20 11:21 AW (Rec: 08/02/20 11:38 AW [id number]) PT Summary Assessment and Plan Potential Rehabilitation Potential Good Summary Impairments Pain,ROM,Strength,Balance,Bed Mobility,Transfers,Gait Progress Towards Goals Progressing Toward Goals,Safe For Discharge Assessment Summary Berto and his both demonstrate good awareness of hip precautions. Berto improved all mobility to SBA with FWW. He was able to navigate stairs without cues. Pt's acquired RTS with handles and shower stool. PT dispensed FWW. Pt is safe for discharge home with spouse assist and HH once medically cleared. Goals Bed Mobility Goal Independent Transfer Goal Independent,Front Wheeled Walker Gait Goal Independent,Front Wheel Walker Gait Distance 150 Other Goals - up/down two steps with left rail ascending SBA Days to Meet Goals 4 Frequency of Treatment Frequency Of Treatment Twice a Day Treatment Plan Physical Therapy Treatment Plan Bed Mobility Training,Transfer Training,Gait Training, Therapeutic Exercise,Balance Retraining,Post Op Education, Discharge Planning,Hot or Cold Pack Precautions Posterior Hip Precautions No Hip Flexion > 90 degrees,No Hip Internal Rotation,No Hip Adduction Other Precautions WBAT RLE Recommendations To Nursing Amount of Assist Needed 1 Person Assist Discharge Recommendations PT Discharge Recommendations Home with Assistance,Home Health Equipment Needed for Home Before FWW, RTS with handles, shower Discharge stool - all acquired Transportation Needs at Discharge Private Vehicle
--- NOTE | 2020-08-02 11:41 | CM.DPC ---
DCP Cont: Patient has discharge orders for today. He mentioned to his nurse, [place], that he was interested in home health services. Had her give him some brochures for [facility], none available for [facility], patient resides near [place]. This internet media planner went into his room later, and stated, he wanted to consult with his as to which agency to use. Met with patient's , Malia, and patient. Did order a FWW for patient per Betzaida in P.T, since patient does not have. and patient wanted to try [facility], since they are based in [place]. Went ahead and faxed them referral, including face sheet, face to face, orders, DC Summary, H&P, and P.T. notes. Dr. Lozano signed face to face. Called [facility] and let them know about referral. Stated that the team would review, and see when they can see patient. Asked for RN, P.T, O.T, and denise small. P: Patient is to discharge home with [facility] services. Gave copy of IMM to patient. Vivienne Bashir, SONI/Vrt Mechanic
== END 2020-08-02 11:25 | disposition home or self-care (01) | DRG 522 ==
LOC: ED 11:34 → AC 13:07
PROVIDERS: Orthopaedic Surgery; Admitting Provider Internal Medicine; Emergency Provider Emergency Medicine; Family Provider Nurse Practitioner; PCP Family Medicine; Referring Provider Emergency Medicine; Visit Provider Internal Medicine
PROC: 0SRR0JZ Replacement of Right Hip Joint, Femoral Surface with Synthetic Substitute, Open Approach (ICD-10-PCS; CPT 27125; principal; 2020-07-31 15:00)
DX: M80.051A Age-related osteoporosis with current pathological fracture, right femur, initial encounter for fracture (principal); I47.2 Ventricular tachycardia; W01.0XXA Fall on same level from slipping, tripping and stumbling without subsequent striking against object, initial encounter; Y92.009 Unspecified place in unspecified non-institutional (private) residence as the place of occurrence of the external cause; R03.0 Elevated blood-pressure reading, without diagnosis of hypertension; R33.9 Retention of urine, unspecified; Z20.822 Contact with and (suspected) exposure to COVID-19; Z87.891 Personal history of nicotine dependence; I49.1 Atrial premature depolarization
CPT/HCPCS: 36415; 72170; 73502; 80048; 80053; 81001; 83735; 85025; 85610; 87635; 93005; 96374; 97116; 97161; 97166; 97530; 97535; 99284; C1776; C9290; J0690; J1100; J2270; J2405; J2704; J3010

== ENCOUNTER → 2020-09-17 11:37 | Outpatient (CLI) | payer MEDICARE, SELFPAY ==
[2020-07-31 18:40] VITALS: BMI 27.3
--- NOTE | 2020-09-17 11:39 | DI.US.S_ITS ---
PROCEDURE: US RENAL COMPLETE INDICATIONS: URINARY RETENTION TECHNIQUE: Real-time scanning was performed of the kidneys and bladder, with image documentation. COMPARISON: [facility], CT, CT KIDNEY URETER BLADDER (KUB), 12/05/2019, 8:07. FINDINGS: Kidneys: Kidneys are normal in size. Right kidney measures 10.9 cm long; left kidney measures 9.7 cm long. Right renal cortical thickness is 1.4 cm; left renal cortical thickness is 1.4 cm. Renal cortical echotexture is normal. No hydronephrosis or nephrolithiasis. No suspicious solid mass lesions. Midpole right renal cortical cyst measuring 10 mm. Bladder: Pre-void bladder volume is 721 mL. Post-void residual is 502 mL. Pre-void images demonstrate no intraluminal masses or stones. On pre-void images, bilateral ureteral jets are noted with color Doppler interrogation. (Of note, ureteral jets may not be detectable in up to 25% of cases due to insufficient differences in specific gravity between ureteral and bladder urine). Posterior bladder are wall diverticulum. Miscellaneous: No free pelvic fluid. IMPRESSION: 1. 11 mm right renal cyst; otherwise normal kidneys. 2. Large bladder diverticulum and significant postvoid residual estimated at 502 cc. Dictated by: Moises POSEY Interpreted: Eryn Soriano MD on 09/17/2020 at 14:12 Transcribed by: DEVI on 09/17/2020 at 14:14 Approved by: Eryn Soriano M.D. on 09/17/2020 at 17:08
== END ==
PROVIDERS: Family Provider Nurse Practitioner; PCP Family Medicine; Referring Provider Student in an Organized Health Care Education/Training Program; Visit Provider Student in an Organized Health Care Education/Training Program
DX: N99.89 Other postprocedural complications and disorders of genitourinary system (principal); R33.8 Other retention of urine; N28.1 Cyst of kidney, acquired; N32.3 Diverticulum of bladder
CPT/HCPCS: 76770

== ENCOUNTER → 2023-05-18 14:46 | Outpatient (CLI) | payer MEDICARE, SELFPAY ==
[2020-07-31 18:40] VITALS: BMI 27.3
--- NOTE | 2023-05-18 14:48 | DI.CT.S_ITS ---
PROCEDURE: CT HEAD/BRAIN WO CON INDICATIONS: cognitive decline TECHNIQUE: Noncontrast 4.5 mm thick angled axial sections acquired from the foramen magnum to the vertex, with coronal and sagittal reformats. For radiation dose reduction, the following was used: automated exposure control, adjustment of mA and/or kV according to patient size. COMPARISON: [facility], CT, HEAD WITHOUT CONTRAST, 12/17/2014, 12:52. FINDINGS: Image quality: Diagnostic. CSF spaces: Basal cisterns are patent. No extra-axial fluid collections. The ventricles are symmetric in size and shape. Brain: No intracranial bleeds or masses. There is cerebral volume loss for age, with resultant ventricular and sulcal prominence. There are periventricular and deep white matter chronic small vessel ischemic changes. There is intracranial internal carotid artery atherosclerosis. Skull and face: Calvarium and visualized facial bones appear intact, without suspicious lesions. Sinuses: Visualized sinuses and mastoids are clear. IMPRESSION: No acute intracranial pathology. Age-related global volume loss and chronic microvascular ischemic changes. Dictated by: Gerard Ahn M.D. on 05/18/2023 at 15:56 Approved by: Gerard Ahn M.D. on 05/18/2023 at 15:57
== END ==
LOC: CT 14:47
PROVIDERS: Family Provider Nurse Practitioner; PCP Family Medicine; Referring Provider Family Medicine; Visit Provider Family Medicine
DX: R41.89 Other symptoms and signs involving cognitive functions and awareness (principal); I65.29 Occlusion and stenosis of unspecified carotid artery
CPT/HCPCS: 70450

== ENCOUNTER → 2023-07-18 09:24 | Outpatient (CLI) | payer MEDICARE, SELFPAY ==
[2020-07-31 18:40] VITALS: BMI 27.3
[2023-07-18 10:45] LABS: Add Manual Diff / Slide Review NO; Basophils Absolute Auto 0 /uL (0-100); Basophils Percent Auto 0.8 % (0-2); Eosinophils Absolute Auto 300 /uL (0-450); Eosinophils Percent Auto 5.4 % (2-4); Hematocrit 42.1 % (41-53); Hemoglobin 14.1 g/dL (13.5-17.5); Lymphocytes Absolute Auto 900 /uL (1100-4500); Lymphocytes Percent Auto 18.3 % (25-40); Mean Corpuscular HGB Conc 33.4 % (30-36); Mean Corpuscular Hemoglobin 31.7 PG (26-34); Mean Corpuscular Volume 94.8 fL (80-100); Monocytes Absolute Auto 600 /uL (0-900); Monocytes Percent Auto 11.4 % (3-14); Neutrophils Absolute Auto 3200 /uL (1500-7000); Neutrophils Percent Auto 64.1 % (50-75); Platelet Count 168 X10^3/uL (150-400); Red Blood Cell Count 4.44 X10^6/uL (4.5-5.9); Red Cell Distribution Width 14.7 % (11.6-14.8)
[2023-07-18 10:56] LABS: HEMOLYSIS < 15 (0-50)
[2023-07-18 11:07] LABS: Alanine Aminotransferase 14 IU/L (<50); Albumin Globulin Ratio 1.5 (1.0-2.8); Alkaline Phosphatase 67 U/L (38-126); Aspartate Aminotransferase 32 IU/L (17-59); BUN Creatinine Ratio 17.6 (6-22); Bilirubin Total 0.9 mg/dL (0.2-1.3); Blood Urea Nitrogen 25 mg/dL (9-20); Calcium 8.9 mg/dL (8.4-10.2); Carbon Dioxide 27 mmol/L (22-32); Chloride 107 mmol/L (98-107); Estimated Glomerular Filt Rate 48 mL/min (>60); Globulin 2.6 g/dL (1.7-4.1); Glucose 85 mg/dL (80-110); Potassium 4.7 mmol/L (3.4-5.1); Sodium 137 mmol/L (137-145); Total Protein 6.6 g/dL (6.3-8.2)
[2023-07-18 11:33] LABS: TSH w/ Reflex to FT4 3.08 uIU/mL (0.47-4.68)
[2023-07-18 11:39] LABS: Prostate Specific Antigen Scrn 0.621 ng/mL (0.1-4.0)
== END ==
LOC: LAB 09:25
PROVIDERS: Family Provider Nurse Practitioner; PCP Family Medicine; Referring Provider Family Medicine; Visit Provider Family Medicine
DX: Z00.00 Encounter for general adult medical examination without abnormal findings (principal); R00.1 Bradycardia, unspecified; Z12.5 Encounter for screening for malignant neoplasm of prostate
CPT/HCPCS: 36415; 80053; 84443; 85025; G0103

== ENCOUNTER → 2023-07-20 11:02 | Outpatient (CLI) | payer MEDICARE, SELFPAY ==
[2020-07-31 18:40] VITALS: BMI 27.3
[2023-07-23 21:15] LABS: Fecal Immunochemical Test Negative (Negative)
== END ==
PROVIDERS: Family Provider Nurse Practitioner; PCP Family Medicine; Referring Provider Family Medicine; Visit Provider Family Medicine
DX: Z12.11 Encounter for screening for malignant neoplasm of colon (principal)
CPT/HCPCS: 82274

== ENCOUNTER 2023-12-04 09:57 | Inpatient (IN) | payer MEDICARE, SELFPAY ==
[2020-07-31 18:40] VITALS: BMI 27.3
[2023-12-04] VITALS (23 sets, daily range): BP systolic 138–213; BP diastolic 66–108; PULSE 42–72; RESP 12–24; TEMP 36.4–36.7; O2SAT 96–100; BMI 25.8
--- NOTE | 2023-12-04 10:09 | DI.CT.S_ITS ---
PROCEDURE: CT HEAD/BRAIN WO CON INDICATIONS: left arm/leg numbness since Sunday TECHNIQUE: Noncontrast 4.5 mm thick angled axial sections acquired from the foramen magnum to the vertex, with coronal and sagittal reformats. For radiation dose reduction, the following was used: automated exposure control, adjustment of mA and/or kV according to patient size. COMPARISON: [facility], CT, CT HEAD/BRAIN WO CON, 05/18/2023, 15:02. FINDINGS: Image quality: Diagnostic. CSF spaces: Basal cisterns are patent. No extra-axial fluid collections. The ventricles are symmetric in size and shape. Brain: No intracranial bleeds or masses. There is cerebral volume loss for age, with resultant ventricular and sulcal prominence. There are periventricular and deep white matter chronic small vessel ischemic changes. There is intracranial internal carotid artery and vertebral artery atherosclerosis. Skull and face: Calvarium and visualized facial bones appear intact, without suspicious lesions. Sinuses: Partially visualized left maxillary sinus mucous retention cyst. The mastoids are clear. IMPRESSION: No acute intracranial pathology. Dictated by: Mayra Dudley MD, PhD on 12/04/2023 at 11:13 Approved by: Mayra Dudley MD, PhD on 12/04/2023 at 11:15
--- NOTE | 2023-12-04 10:09 | DI.CT.S_ITS ---
PROCEDURE: CT ANGIO HEAD AND NECK INDICATIONS: left arm/leg numbness since Sunday left face numbness today TECHNIQUE: After the administration of intravenous contrast, 1 mm thick sections acquired from the aortic arch through the [place]. 3-dimensional ncklsyu-xeqqxwsuk-kfpkrzhgdp (MIP) and/or volume rendering reformats were acquired of the central intracranial vasculature and neck separately. For radiation dose reduction, the following was used: automated exposure control, adjustment of mA and/or kV according to patient size. COMPARISON: CT head December 04, 2023. FINDINGS: Image quality: Diagnostic. HEAD CT ANGIOGRAPHY: Anterior circulation: Intracranial internal carotid arteries are normal in size and flow. The flow within the paired anterior cerebral arteries is normal and symmetric. The flow within the middle cerebral arteries is normal and symmetric. The anterior communicating artery is seen. No aneurysms are seen. Posterior circulation: Atherosclerotic calcification in the V4 segments of the bilateral vertebral arteries causing mild multifocal stenosis. Normal flow in the basilar artery. Scattered soft atherosclerotic plaque in the basilar artery causing mild multifocal stenosis. Flow within the posterior cerebral arteries is normal and symmetric. No aneurysms are seen. Dural sinuses demonstrate normal postcontrast enhancement. NECK CT ANGIOGRAPHY: Carotid system: The great vessels demonstrate a conventional anatomy as they arise from the aortic arch. The origins of the common carotid arteries appear patent. The common carotid arteries demonstrate normal caliber and courses. Soft and calcified atherosclerotic plaque in the origins of the internal carotid arteries which causes mild, less than 50% stenosis of the right internal carotid artery and moderate, proximal 60% stenosis of the right internal carotid artery. Posterior circulation: The origins of the vertebral arteries both appear widely patent. The more superior extracranial portions of both vertebral arteries also demonstrate normal courses and calibers. They join to form a normal appearing basilar artery. Soft tissues: Visualized neck soft tissues demonstrate no suspicious abnormalities. Biapical emphysematous disease. Left lung apex parenchymal scarring. Bones: No suspicious bony lesions. Visualized cervical spine appears normally aligned. Spine degenerative disc disease and facet arthropathy. IMPRESSION: No large vessel occlusion, significant stenosis, vascular dissection or aneurysm. Any quantitative measurements of stenosis were performed using NASCET criteria. Dictated by: Mayra Dudley MD, PhD on 12/04/2023 at 11:15 Approved by: Mayra Dudley MD, PhD on 12/04/2023 at 11:23
--- NOTE | 2023-12-04 10:09 | EKG_ITS ---
[address] [id number] [address] [address] Test Date: 2023-12-04 Pat Name: Sloan Cano Department: Room: Gender: Male Bond Writer: RAVINDER : 1935 Requested By: Order Number: [id number] Reading MD: Anam Nathan MD Measurements Intervals [place] Rate: 53 P: NV: QRS: -18 QRSD: 84 T: -4 QT: 438 QTc: 410 Interpretive Statements Sinus rhythm Electronically Signed On 12-04-2023 13:37:33 PDT by Anam Nathan MD
[2023-12-04 10:20] LABS: INR 0.9 (0.9-1.3); Prothrombin Time 10.4 SECONDS (9.4-12.5)
[2023-12-04 10:23] LABS: PTT Partial Thromboplastin Tim 30 SECONDS (25.1-36.5)
--- NOTE | 2023-12-04 10:26 | PC.NURSE ---
Pt reports low heart rate at baseline, 45-55 BPM. Physician aware.
[2023-12-04 10:29] LABS: Alanine Aminotransferase 18 IU/L (<50); Albumin 4.3 g/dL (3.5-5.0); Albumin Globulin Ratio 1.9 (1.0-2.8); Alkaline Phosphatase 56 U/L (38-126); Aspartate Aminotransferase 29 IU/L (17-59); BUN Creatinine Ratio 17.9 (6-22); Bilirubin Total 0.6 mg/dL (0.2-1.3); Blood Urea Nitrogen 26 mg/dL (9-20); Calcium 9.4 mg/dL (8.4-10.2); Carbon Dioxide 23 mmol/L (22-32); Chloride 109 mmol/L (98-107); Estimated Glomerular Filt Rate 47 mL/min (>60); Globulin 2.3 g/dL (1.7-4.1); Glucose 84 mg/dL (80-110); HEMOLYSIS < 15 (0-50); Potassium 4.1 mmol/L (3.4-5.1); Sodium 140 mmol/L (137-145); Total Protein 6.6 g/dL (6.3-8.2)
[2023-12-04 10:31] LABS: Add Manual Diff / Slide Review NO; Basophils Absolute Auto 100 /uL (0-100); Basophils Percent Auto 0.8 % (0-2); Eosinophils Absolute Auto 100 /uL (0-450); Eosinophils Percent Auto 1.7 % (2-4); Hematocrit 40.7 % (41-53); Hemoglobin 13.7 g/dL (13.5-17.5); Lymphocytes Absolute Auto 1600 /uL (1100-4500); Lymphocytes Percent Auto 19.3 % (25-40); Mean Corpuscular HGB Conc 33.7 % (30-36); Mean Corpuscular Hemoglobin 31.9 PG (26-34); Mean Corpuscular Volume 94.6 fL (80-100); Monocytes Absolute Auto 600 /uL (0-900); Monocytes Percent Auto 6.9 % (3-14); Neutrophils Absolute Auto 6100 /uL (1500-7000); Neutrophils Percent Auto 71.3 % (50-75); Platelet Count 162 X10^3/uL (150-400); Red Blood Cell Count 4.31 X10^6/uL (4.5-5.9); Red Cell Distribution Width 15.4 % (11.6-14.8); White Blood Cell Count 8.5 X10^3/uL (4.5-11.0)
--- NOTE | 2023-12-04 10:31 | ED.NEUROSD ---
HPI - Neuro Symptoms/Deficit General Chief Complaint: Neuro Symptoms/Deficit Stated Complaint: Numbness on left side of body. Time Seen by Provider: 12/04/23 10:28 Source: patient, RN notes reviewed and old records reviewed Mode of arrival: Wheelchair Limitations: no limitations History of Present Illness HPI Narrative: 88-year-old male with history of hypertension, presents with complaint of left lower extremity numbness of the arm and leg as well as some facial droop. Symptoms started Sunday he would driven [place] the local [place] could not get out of the car was sudden onset and unable to lift or move his leg and had some numbness and tingling. Have any pain, noticed a little bit of mild sensation change in his left upper extremity. Was seen at [facility] head CT of his head and neck was given an aspirin and told to take an aspirin daily and discharged home. Patient states yesterday was a little bit better able to ambulate a little bit better but still having left-sided weakness today seems worse in now has new facial droop that is seems to be worsening compared symptoms continue to all be left-sided. Denies any headache, no fevers, notes some blurred vision, no chest pain or shortness of breath, no nausea or vomiting sometimes issues with constipation but has been having bowel movements no urinary symptoms no incontinence. 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 He states only medication is lisinopril 20 mg daily, did take an aspirin 324 mg this morning. He has had prior hip replacement, diaphragmatic hernia repair, stapedectomy. No known drug allergies, no tobacco has 2 beers nightly, no recreational drugs. Dr. Moy is his primary care physician. On Anticoagulants: No Related Data Previous Rx's Medication Instructions Recorded lisinopril 10 mg tablet 10 mg PO BID #180 tabs 07/25/23 Allergies Allergy/AdvReac Type Severity Reaction Status Date / Time No Known Drug Allergies Allergy Unknown Verified 07/16/23 14:09 [NO KNOWN DRUG ALLERGIES] Review of Systems Review of Systems ROS Unobtainable: All systems reviewed & are unremarkable except as noted in HPI and below Hematologic/Lymphatic On Anticoagulants: No Patient History Medical History Osteoarthritis Chronic kidney disease Hypertension Skin lesion Heart murmur Irregular heart rate Dizziness Medicare annual wellness visit, subsequent Prostatitis Well adult exam History of urinary retention Splitting of urinary stream Enuresis, nocturnal only Shoulder pain (~2003) Mumps (~1948) Tinnitus (~1989) Hearing loss (~1989) Hiatal hernia Bradycardia Surgical History History of transurethral resection of prostate Anesthesia History of hernia repair (~05/2016) Family History Father Ruptured, aorta Sister Giant cell arteritis Social History household members: spouse Smoking Status: Former smoker Tobacco: How many years used: 20 quit status: quit date established (05/07/1979) alcohol intake: current substance use type: does not use Smoking Status: Former smoker alcohol intake frequency: holidays/special occasions only Substance Use Type: does not use Exam Narrative Exam Narrative: GEN: well nourished, well appearing male, alert and oriented x 3, patient appears to be in mild distress. HEENT: Atraumatic, pupils are equal round reactive to light, extraocular movements are intact, nares are clear, TMs are clear with no fluid, there is no conjunctival pallor. Throat is clear without any exudates, erythema, tonsillar enlargement or uvular deviation, patient has decreased movement of the left forehead droop of the I and decreased use of the left cheek. Does have crease with smile. HEART: Regular rate and rhythm without murmur, clicks, rubs. No carotid bruits, pulses are equal in upper and lower extremities LUNGS:Lungs clear to auscultation, no wheezes, rales, crackles, chest moves symmetrically ABD:bowel sounds normal, soft, non-tender, no guarding, rebound, rigidity, no masses noted, no hepatosplenomegaly :No CVA tenderness MSCL: Non-tender, no muscle atrophy, some mild drift of the left upper extremity, has quite a bit of drift on the left lower extremity. NEURO:CN 2-12 intact, decreased on the left lower extremity, patient has a mild ataxia with left upper extremity has quite a bit of ataxia with the left lower extremity no difficulty on the right side. Initial Vital Signs Initial Vital Signs: Vital Signs Temperature 97.6 F 12/04/23 09:58 Pulse Rate 59 L 12/04/23 09:58 Respiratory Rate 15 12/04/23 09:58 Blood Pressure 189/93 H 12/04/23 09:58 Pulse Oximetry 100 12/04/23 09:58 Oxygen Delivery Method Room Air 12/04/23 09:58 Scores NIH Stroke Scale Level of Conciousness: Alert, keenly responsive Ask month/age: Answers both questions correctly. Open/close eyes, close hand: Performs both tasks correctly Best gaze horizontal: Normal Visual chavez: No visual loss Facial palsy: Minor paralysis, flattened nasolabial fold, asymmetry on smiling Left arm drift: Drifts down, not to bed Right arm drift: No drift for full 10 sec Left leg drift: Drifts down, not to bed Right leg drift: No drift for full 5 sec Limb ataxia: Present in two limbs Sensory on face/arms/legs: Mild to moderate sensory loss, can tell touch Best language: No aphasia, normal Dysarthria: Normal Extinction or inattention: No abnormality Total NIH Stroke scale score: 6 Course Orders Ordered: ED Orders 12/04/23 10:05 Complete Blood Count AUTO DIFF Stat Comprehensive Metabolic Panel Stat PTT Partial Thromboplastin Bradley Stat Prothrombin Time INR Stat 12/04/23 10:09 CT angio head and neck Stat CT head/brain wo con Stat EKG-12 Lead Stat Vital Signs Vital signs: Vital Signs - 8 hr 12/04/23 09:58 12/04/23 10:06 12/04/23 10:07 Temperature 97.6 F Pulse Rate 59 L 50 L 51 L Respiratory Rate 15 21 24 Blood Pressure 189/93 H Pulse Oximetry 100 98 98 Oxygen Delivery Method Room Air 12/04/23 10:07 12/04/23 10:13 12/04/23 10:13 Temperature Pulse Rate 51 L Respiratory Rate 20 Blood Pressure 189/93 H 213/90 H Pulse Oximetry 98 Oxygen Delivery Method 12/04/23 10:16 12/04/23 10:16 12/04/23 10:30 Temperature Pulse Rate 48 L 49 L Respiratory Rate 15 17 Blood Pressure 170/77 H Pulse Oximetry 99 98 Oxygen Delivery Method 12/04/23 10:31 12/04/23 10:31 12/04/23 10:45 Temperature Pulse Rate 46 L Respiratory Rate 17 Blood Pressure 173/84 H 182/95 H Pulse Oximetry 99 Oxygen Delivery Method 12/04/23 10:45 12/04/23 11:05 12/04/23 11:07 Temperature Pulse Rate 51 L 59 L Respiratory Rate 21 17 Blood Pressure 175/70 H Pulse Oximetry 98 97 Oxygen Delivery Method 12/04/23 11:07 12/04/23 11:15 12/04/23 11:15 Temperature Pulse Rate 47 L 55 L Respiratory Rate 14 12 Blood Pressure 148/73 H Pulse Oximetry 98 99 Oxygen Delivery Method 12/04/23 11:30 12/04/23 11:30 12/04/23 11:45 Temperature Pulse Rate 44 L 43 L Respiratory Rate 16 14 Blood Pressure 173/74 H Pulse Oximetry 98 97 Oxygen Delivery Method 12/04/23 11:45 12/04/23 12:00 12/04/23 12:01 Temperature Pulse Rate 42 L Respiratory Rate 14 Blood Pressure 149/66 H 172/72 H Pulse Oximetry 98 Oxygen Delivery Method 12/04/23 12:01 12/04/23 12:15 Temperature Pulse Rate 53 L 57 L Respiratory Rate 13 Blood Pressure Pulse Oximetry 96 Oxygen Delivery Method MDM - Neuro Symptoms/Deficit Lab Data 12/04/23 10:05 12/04/23 10:05 Labs: Lab Results 12/04/23 Range/Units 10:05 WBC 8.5 (4.5-11.0) X10^3/uL RBC 4.31 L (4.5-5.9) X10^6/uL Hgb 13.7 (13.5-17.5) g/dL Hct 40.7 L (41-53) % MCV 94.6 (80-100) fL MCH 31.9 (26-34) PG MCHC 33.7 (30-36) % RDW 15.4 H (11.6-14.8) % Plt Count 162 (150-400) X10^3/uL Neut % (Auto) 71.3 (50-75) % Lymph % (Auto) 19.3 L (25-40) % [place] % (Auto) 6.9 (3-14) % Eos % (Auto) 1.7 L (2-4) % Baso % (Auto) 0.8 (0-2) % Neut # (Auto) 6100 (0956-4780) /uL Lymph # (Auto) 1600 (9466-6519) /uL [place] # (Auto) 600 (0-900) /uL Eos # (Auto) 100 (0-450) /uL Baso # (Auto) 100 (0-100) /uL PT 10.4 (9.4-12.5) SECONDS INR 0.9 (0.9-1.3) APTT 30 (25.1-36.5) SECONDS Sodium 140 (137-145) mmol/L Potassium 4.1 (3.4-5.1) mmol/L Chloride 109 H (98-107) mmol/L Carbon Dioxide 23 (22-32) mmol/L BUN 26 H (9-20) mg/dL Creatinine 1.45 H (0.66-1.25) mg/dL Estimated GFR 47 L (>60) mL/min BUN/Creatinine Ratio 17.9 (6-22) Glucose 84 (80-110) mg/dL Calcium 9.4 (8.4-10.2) mg/dL Total Bilirubin 0.6 (0.2-1.3) mg/dL AST 29 (17-59) IU/L ALT 18 (<50) IU/L Alkaline Phosphatase 56 (38-126) U/L Total Protein 6.6 (6.3-8.2) g/dL Albumin 4.3 (3.5-5.0) g/dL Globulin 2.3 (1.7-4.1) g/dL Albumin/Globulin Ratio 1.9 (1.0-2.8) Imaging Data CT scan - head: Radiologist's Impression: Close Head/Neck CTA (Signed) Mayra Dudley - 12/04/[address] (Signed) Mayra Dudley - 12/04/[address] (Signed) Gerard Ahn - 05/18/23 Renal Ultrasound (Signed) Eryn Soriano - 09/17/20 Hip X-Ray (Signed) David Catalan - 07/31/20 Telemetry Strips 07/31/20 Bladder Scan 07/31/20 Hip X-Ray (Signed) David Catalan - 07/31/20 Pelvis X-Ray (Signed) Can Bauman - 07/31/20 Abdomen/Pelvis CT (Signed) Kareem Castillo - 12/05/19 Echocardiogram Ultrasound (Signed) Eros Aguilera - 12/05/19 Chest X-Ray (Signed) Mariana Poole - 11/19/19 Launch?[place] [address] CT Scan Report Signed Patient: Sloan Cano MR#: [id number] : 1935 Acct:[id number] Age/Sex: 88 / M Date of Service: 12/04/23 Loc: ED Accession Number: [id number] Procedure: CT head/brain wo con Ordering Provider: Haily eLslie D.O. PROCEDURE: CT HEAD/BRAIN WO CON INDICATIONS: left arm/leg numbness since Sunday TECHNIQUE: Noncontrast 4.5 mm thick angled axial sections acquired from the foramen magnum to the vertex, with coronal and sagittal reformats. For radiation dose reduction, the following was used: automated exposure control, adjustment of mA and/or kV according to patient size. COMPARISON: [facility], CT, CT HEAD/BRAIN WO CON, 05/18/2023, 15:02. FINDINGS: Image quality: Diagnostic. CSF spaces: Basal cisterns are patent. No extra-axial fluid collections. The ventricles are symmetric in size and shape. Brain: No intracranial bleeds or masses. There is cerebral volume loss for age, with resultant ventricular and sulcal prominence. There are periventricular and deep white matter chronic small vessel ischemic changes. There is intracranial internal carotid artery and vertebral artery atherosclerosis. Skull and face: Calvarium and visualized facial bones appear intact, without suspicious lesions. Sinuses: Partially visualized left maxillary sinus mucous retention cyst. The mastoids are clear. IMPRESSION: No acute intracranial pathology. Dictated by: Mayra Dudley MD, PhD on 12/04/2023 at 11:13 Approved by: Mayra Dudley MD, PhD on 12/04/2023 at 11:15 CTA - brain/neck: Radiologist's Impression: Sloan Cano?(Berto)??88??M??1935 ? Allergy/Adv: No Known Drug Allergies (More??) Close Head/Neck CTA (Signed) Mayra Dudley - 12/04/[address] (Signed) Mayra Dudley - 08/06/[address] (Signed) Gerard Ahn - 05/18/23 Renal Ultrasound (Signed) Eryn Soriano - 09/17/20 Hip X-Ray (Signed) David Catalan - 07/31/20 Telemetry Strips 07/31/20 Bladder Scan 07/31/20 Hip X-Ray (Signed) David Catalan - 07/31/20 Pelvis X-Ray (Signed) MitulCan - 07/31/20 Abdomen/Pelvis CT (Signed) Rickie Castillown - 12/05/19 Echocardiogram Ultrasound (Signed) Eros Aguilera - 12/05/19 Chest X-Ray (Signed) Preethi Pooleshital - 11/19/19 [place] [address] CT Scan Report Signed Patient: Sloan Cano MR#: [id number] : 1935 Acct:[id number] Age/Sex: 88 / M Date of Service: 12/04/23 Loc: ED Accession Number: [id number] Procedure: CT angio head and neck Ordering Provider: Haily Leslie D.O. PROCEDURE: CT ANGIO HEAD AND NECK INDICATIONS: left arm/leg numbness since Sunday left face numbness today TECHNIQUE: After the administration of intravenous contrast, 1 mm thick sections acquired from the aortic arch through the [place] of [place]. 3-dimensional tddeusl-wasilmynx-bkikhwlfbs (MIP) and/or volume rendering reformats were acquired of the central intracranial vasculature and neck separately. For radiation dose reduction, the following was used: automated exposure control, adjustment of mA and/or kV according to patient size. COMPARISON: CT head December 04, 2023. FINDINGS: Image quality: Diagnostic. HEAD CT ANGIOGRAPHY: Anterior circulation: Intracranial internal carotid arteries are normal in size and flow. The flow within the paired anterior cerebral arteries is normal and symmetric. The flow within the middle cerebral arteries is normal and symmetric. The anterior communicating artery is seen. No aneurysms are seen. Posterior circulation: Atherosclerotic calcification in the V4 segments of the bilateral vertebral arteries causing mild multifocal stenosis. Normal flow in the basilar artery. Scattered soft atherosclerotic plaque in the basilar artery causing mild multifocal stenosis. Flow within the posterior cerebral arteries is normal and symmetric. No aneurysms are seen. Dural sinuses demonstrate normal postcontrast enhancement. NECK CT ANGIOGRAPHY: Carotid system: The great vessels demonstrate a conventional anatomy as they arise from the aortic arch. The origins of the common carotid arteries appear patent. The common carotid arteries demonstrate normal caliber and courses. Soft and calcified atherosclerotic plaque in the origins of the internal carotid arteries which causes mild, less than 50% stenosis of the right internal carotid artery and moderate, proximal 60% stenosis of the right internal carotid artery. Posterior circulation: The origins of the vertebral arteries both appear widely patent. The more superior extracranial portions of both vertebral arteries also demonstrate normal courses and calibers. They join to form a normal appearing basilar artery. Soft tissues: Visualized neck soft tissues demonstrate no suspicious abnormalities. Biapical emphysematous disease. Left lung apex parenchymal scarring. Bones: No suspicious bony lesions. Visualized cervical spine appears normally aligned. Spine degenerative disc disease and facet arthropathy. IMPRESSION: No large vessel occlusion, significant stenosis, vascular dissection or aneurysm. Any quantitative measurements of stenosis were performed using NASCET criteria. Dictated by: Mayra Dudley MD, PhD on 12/04/2023 at 11:15 Approved by: Mayra Dudley MD, PhD on 12/04/2023 at 11:23 ECG Data Attestation: I personally reviewed and interpreted this ECG as follows: Interpretation: Drinks known rhythm rate of 53, QRS 84 QTC of 410. EKG read as junctional appears a P waves but not always clearly is regular rhythm. Patient has a inverted T-waves in 3 and AVF no acute elevation noted. MDM Narrative Medical decision making narrative: 88-year-old male with symptoms starting Sunday initially mainly left lower extremity but a little bit of his left arm has sort of progressed slowly over the past several days now includes his face. He has never had resolution of his symptoms. Head CT shows no acute change, CT angio shows no large vessel occlusion significant stenosis dissection or aneurysm there is some plaque less than 50% of the right ICA and proximal 60% in the right internal carotid. Non-con head CT shows no acute change. Labs show white count 8.5 hemoglobin of 13 platelets of 162. INR 0.9 sodium is 140 potassium 4.1 chloride 109 CO2 of 23 BUN 26 creatinine 1.45 appears fairly consistent with priors glucose is 84 LFTs are negative, calcium is 9.4. Patient already took aspirin 324 mg. Patient has prior outside interventional timeframe for tPA or code IR. Patient's symptoms have never resolved have not been stuttering but has been slowly progressive over the last several days. Spoke with Dr. Ruiz, hospitalist, accepts for observation. Plan for stroke workup. Stroke Core Measures Exclusion Criteria TPA in CVA: Symptom Onset >3 or 4.5 Hours Discharge Plan Departure Patient Disposition: Admitted as Observation Clinical Impression: CVA (cerebral vascular accident) Admit Date/Time: 12/04/23 12:25 Admit Provider: King Ruiz
--- NOTE | 2023-12-04 12:19 | P.HP_ITS ---
History of Present Illness History of Present Illness Date Patient Seen: 12/04/23 Chief complaint: Numbness on left side of body. Narrative: From ED doctor: 88-year-old male with history of hypertension, presents with complaint of left lower extremity numbness of the arm and leg as well as some facial droop. Symptoms started Sunday he would driven [place] the local [place] could not get out of the car was sudden onset and unable to lift or move his leg and had some numbness and tingling. Have any pain, noticed a little bit of mild sensation change in his left upper extremity. Was seen at [facility] head CT of his head and neck was given an aspirin and told to take an aspirin daily and discharged home. Patient states yesterday was a little bit better able to ambulate a little bit better but still having left-sided weakness today seems worse in now has new facial droop that is seems to be worsening compared symptoms continue to all be left-sided. Denies any headache, no fevers, notes some blurred vision, no chest pain or shortness of breath, no nausea or vomiting sometimes issues with constipation but has been having bowel movements no urinary symptoms no incontinence. 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 He states only medication is lisinopril 20 mg daily, did take an aspirin 324 mg this morning. He has had prior hip replacement, diaphragmatic hernia repair, stapedectomy. No known drug allergies, no tobacco has 2 beers nightly, no recreational drugs. Dr. Moy is his primary care physician. On Anticoagulants: No ED Course: CT scan was obtained in the ED as well as a CTA. No acute findings. NIH score was 6, the patient was outside of the time window for thrombolytics. Subjective: He developed leg weakness on the left on Sunday. This got a little bit better on Sunday but his left arm was not coordinated. He was seen would be on Sunday with a negative head CT and a diagnosis of possible radiculopathy. On Sunday he was so weak when trying to get to the bathroom he needed help to get into the bathroom. He has relatively obvious arm and leg weakness as well as a facial droop and slurred speech today. They elected to come to this emergency department for further evaluation. 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 He denies headache, or trauma to the head. He does have history of TURP and notes frequent urination recently, but no fevers, chills, or hematuria. [facility] Medical History Osteoarthritis Chronic kidney disease Hypertension Skin lesion Heart murmur Irregular heart rate Dizziness Medicare annual wellness visit, subsequent Prostatitis Well adult exam History of urinary retention Splitting of urinary stream Enuresis, nocturnal only Shoulder pain (~2003) Mumps (~1948) Tinnitus (~1989) Hearing loss (~1989) Hiatal hernia Bradycardia Surgical History History of transurethral resection of prostate Anesthesia History of hernia repair (~05/2016) Family History Father Ruptured, aorta Sister Giant cell arteritis Social History household members: spouse Smoking Status: Former smoker Tobacco: How many years used: 20 quit status: quit date established (05/07/1979) alcohol intake: current substance use type: does not use Meds Home Medications and Allergies Home Medications Medication Instructions Recorded Confirmed Type lisinopril 10 mg tablet 10 mg PO BID #180 tabs 07/25/23 12/04/23 Rx Allergies Allergy/AdvReac Type Severity Reaction Status Date / Time No Known Drug Allergies Allergy Unknown Verified 07/16/23 14:09 [NO KNOWN DRUG ALLERGIES] Review of Systems Review of Systems Narrative: All else reviewed and otherwise unremarkable except as noted in the history and physical. Exam Vital Signs (past 8 hours): - 12/04/23 09:58 12/04/23 10:12/04/23 10:07 Temperature 97.6 F Pulse Rate 59 L 50 L 51 L Respiratory Rate 15 21 24 Blood Pressure 189/93 H Pulse Oximetry 100 98 98 Oxygen Delivery Method Room Air 12/04/23 10:07 12/04/23 10:13 12/04/23 10:13 Temperature Pulse Rate 51 L Respiratory Rate 20 Blood Pressure 189/93 H 213/90 H Pulse Oximetry 98 Oxygen Delivery Method 12/04/23 10:16 12/04/23 10:16 12/04/23 10:30 Temperature Pulse Rate 48 L 49 L Respiratory Rate 15 17 Blood Pressure 170/77 H Pulse Oximetry 99 98 Oxygen Delivery Method 12/04/23 10:31 12/04/23 10:31 12/04/23 10:45 Temperature Pulse Rate 46 L Respiratory Rate 17 Blood Pressure 173/84 H 182/95 H Pulse Oximetry 99 Oxygen Delivery Method 12/04/23 10:45 12/04/23 11:05 12/04/23 11:07 Temperature Pulse Rate 51 L 59 L Respiratory Rate 21 17 Blood Pressure 175/70 H Pulse Oximetry 98 97 Oxygen Delivery Method 12/04/23 11:07 12/04/23 11:15 12/04/23 11:15 Temperature Pulse Rate 47 L 55 L Respiratory Rate 14 12 Blood Pressure 148/73 H Pulse Oximetry 98 99 Oxygen Delivery Method 12/04/23 11:30 12/04/23 11:30 12/04/23 11:45 Temperature Pulse Rate 44 L 43 L Respiratory Rate 16 14 Blood Pressure 173/74 H Pulse Oximetry 98 97 Oxygen Delivery Method 12/04/23 11:45 12/04/23 12:00 12/04/23 12:01 Temperature Pulse Rate 42 L Respiratory Rate 14 Blood Pressure 149/66 H 172/72 H Pulse Oximetry 98 Oxygen Delivery Method 12/04/23 12:01 12/04/23 12:15 Temperature Pulse Rate 53 L 57 L Respiratory Rate 13 Blood Pressure Pulse Oximetry 96 Oxygen Delivery Method Oxygen Delivery Method Room Air Narrative Exam Narrative: NAD, alert and oriented, fluent speech, calm. Normocephalic skull, EOMI, anicteric sclera, symmetric pupils. Oropharynx unremarkable, no droop. Neck supple, midline trachea, no adenopathy. Lungs clear, normal rate and effort. Heart regular, no murmur gallop or rub. Abdomen is soft, non distended and non tender. Extremities are free of edema. Skin is free of rash or lesions. Joints are not swollen or deformed. Judgment appears to be normal. NEURO: Left leg straight raise is about 3-4 seconds compared to normal right. The left arm has a mild pronator drift. He was a left facial droop and mild slurring of the speech. Objective ECG Impression: Junctional rhythm Imaging Multiple studies:: Radiologist's impression: Head and neck CTA: No large vessel occlusion, significant stenosis, vascular dissection or aneurysm. Any quantitative measurements of stenosis were performed using NASCET criteria. Head CT: No acute intracranial pathology. Labs 12/04/23 10:05 12/04/23 10:05 Labs: Laboratory Results - last 24 hr 12/04/23 10:05 WBC 8.5 RBC 4.31 L Hgb 13.7 Hct 40.7 L MCV 94.6 MCH 31.9 MCHC 33.7 RDW 15.4 H Plt Count 162 Neut % (Auto) 71.3 Lymph % (Auto) 19.3 L [place] % (Auto) 6.9 Eos % (Auto) 1.7 L Baso % (Auto) 0.8 Neut # (Auto) 6100 Lymph # (Auto) 1600 [place] # (Auto) 600 Eos # (Auto) 100 Baso # (Auto) 100 PT 10.4 INR 0.9 APTT 30 Sodium 140 Potassium 4.1 Chloride 109 H Carbon Dioxide 23 BUN 26 H Creatinine 1.45 H Estimated GFR 47 L BUN/Creatinine Ratio 17.9 Glucose 84 Calcium 9.4 Total Bilirubin 0.6 AST 29 ALT 18 Alkaline Phosphatase 56 Total Protein 6.6 Albumin 4.3 Globulin 2.3 Albumin/Globulin Ratio 1.9 Assessment & Plan Assessment & Plan narrative: 1. CVA with left face, arm, and leg weakness and delayed presentation, present on admission and active. 2. Hypertension, present on admission and active. 3. Chronic kidney disease, present on admission and active. PLAN: -MRI brain -echo. -PT and OT consults. -telemetry to ascertain possible PAF. -DAPT and statin. Observation status, anticipate 1 midnight of care. Full resuscitation. OLYA is December 04, if he was able to ambulate safely enough to be discharged home. Time-Based Coding :: 35 min spent with patient and on the chart (including review of chart, obtaining history, exam, reviewing outside data, placing orders, documenting exam and treatment plan, and counseling patient) on 12/03. Quality MIPS - Admit I confirm the patient?s Advance Care Plan is present, Code status is documented, Surrogate decision maker is in patient?s record [If Yes, STOP here]: Yes MIPS - Meds 'Current medications' to include all prescriptions, [id number] products, herbals, cannabis/cannabidiol products, and vitamin/mineral/dietary (nutritional) supplements. I have utilized all available resources to obtain, update, or review the patient?s current medications. [If Yes, STOP here]: Yes
--- NOTE | 2023-12-04 14:22 | DI.MRI.S_ITS ---
PROCEDURE: MR HEAD/BRAIN WO CON INDICATIONS: stroke TECHNIQUE: Non-contrast axial T1 spin echo, axial T2 fast spin echo, sagittal and axial FLAIR, coronal T2 fast spin echo, axial gradient echo, axial diffusion and ADC through the brain. COMPARISON: [facility], CT, CT HEAD/BRAIN WO CON, 12/04/2023, 10:53. FINDINGS: Image quality: Excellent. CSF spaces: Ventricles appear symmetric in size and shape. Basal cisterns are patent. No extra-axial fluid collections. Brain: No intracranial bleeds or mass effects. There is cerebral volume loss for age. There are periventricular and deep white matter chronic small vessel ischemic changes. Within the right aspect of the kenneth, there is 10 mm diameter region elevated diffusion signal which demonstrates low ADC map signal, and mild FLAIR signal elevation. There is a small chronic left paramedian kenneth infarct. Normal intravascular flow voids are present. Skull and face: Calvarial bone marrow is normal in signal. Orbits are normal. Sinuses: Small left maxillary sinus retention cyst. IMPRESSION: 1. Volume loss and small vessel ischemic disease. 2. Small subacute right kenneth infarct. 3. Small chronic left kenneth infarct. Dictated by: Gissel Vazquez M.D. on 12/04/2023 at 16:02 Approved by: Gissel Vazquez M.D. on 12/04/2023 at 16:18
--- NOTE | 2023-12-04 14:22 | DI.ECHO.S_ITS ---
[facility] : : [address] : : [facility] : : [place], : : [place] [address] : : Phone: [phone] Echocardiogram Report + + :Name: CAROLYNN MOON Study Date: 12/04/2023 Height: 67 in : :[facility] ReadingLocation: Weight: 165 lb : : Gender: Male BSA: 1.9 m2 : :: 1935 Age: 88 yrs BP: 143/98 mmHg: :Reason For Study: STROKE : :Ordering Physician: MORRIS, : :SERENA Salas Performed By: Danie Sandhu : :Referring: SERENA CACERES : + + Interpretation Summary The left ventricle is normal in size. Left ventricular systolic function is normal. The ejection fraction is estimated to be 60-65%. There are no obvious focal wall motion abnormalities noted but poor endocardial definition reduces the sensitivity for the detection of such. Diastolic parameters suggest a relaxation abnormality of the left ventricle, consistent with probable normal filling pressures. The right ventricle is not well visualized. The right ventricular systolic function is normal. The left atrium is severely dilated. There is mild to moderate mitral regurgitation. There is mild to moderate aortic regurgitation. The aortic root is mildly dilated. The ascending aorta is moderately enlarged. Procedure: A two-dimensional transthoracic echocardiogram with color flow and Doppler was performed. The study quality was technically adequate. Comparison is made with the echocardiogram of 12/05/2019. The heart rate ranged between 42-56 bpm during the study. Left Ventricle: The left ventricle is normal in size. There is mild asymmetric left ventricular hypertrophy. Left ventricular systolic function is normal. The ejection fraction is estimated to be 60-65%. There are no obvious focal wall motion abnormalities noted but poor endocardial definition reduces the sensitivity for the detection of such. Diastolic parameters suggest a relaxation abnormality of the left ventricle, consistent with probable normal filling pressures. Right Ventricle: The right ventricle is not well visualized. The right ventricular systolic function is normal. Atria: The left atrium is severely dilated. Right atrium not well visualized secondary to technical limitations. The interatrial septum is not well visualized. There is no Doppler evidence for an interatrial shunt. Mitral Valve: The mitral valve is grossly normal. There is mild mitral annular calcification. There is no mitral valve stenosis. There is mild to moderate mitral regurgitation. Aortic Valve: The aortic valve is trileaflet. The aortic valve is mildly calcified. There is no aortic valve stenosis. There is mild to moderate aortic regurgitation. Tricuspid Valve: The tricuspid valve is normal. There is no tricuspid stenosis. There is mild tricuspid regurgitation. Pulmonary artery pressures cannot be estimated because of the lack of a measurable TR jet velocity. Pulmonic Valve: The pulmonic valve is not well visualized. There is no pulmonic valvular stenosis. There is no pulmonic valvular regurgitation. Great Vessels: The aortic root is mildly dilated. The ascending aorta is moderately enlarged. The inferior vena cava was not visualized. Pericardium/ Pleura There is no pericardial effusion. There is no pleural effusion. MMode/2D Measurements & Calculations LVIDd: 4.5 cm LVOT diam: 2.0 cm LVIDs: 2.5 cm Ao root diam: 3.9 cm IVSd: 1.2 cm asc Aorta Diam: 4.3 cm LVPWd: 1.0 cm Ao Arch Diam (Prox Trans): 2.5 cm LV alamo. diameter/BSA (cm/m^2): 2.4 LV sys. diameter/BSA (cm/m^2): 1.4 FS: 44.1 % LA A2 area: 27.3 cm2 RVD1 (basal): 4.7 cm LA A4 area: 34.1 cm2 RVD2 (mid): 4.0 cm LA length (vol): 7.4 cm TAPSE: 2.6 cm LA vol: 107.1 ml LA vol index: 57.5 ml/m2 Doppler Measurements & Calculations Ao V2 max: 206.3 cm/sec LVOT Max Paramjit: 88.1 cm/sec Ao V2 mean: 127.8 cm/sec LV V1 max P.1 mmHg Ao V2 VTI: 46.7 cm LV V1 VTI: 21.8 cm Ao max P.0 mmHg Ao mean P.7 mmHg SANDRA(I,D): 1.5 cm2 MV E max paramjit: 44.4 cm/sec SANDRA(V,D): 1.4 cm2 MV A max paramjit: 48.0 cm/sec SANDRA indexed to BSA (cm^2/m^2): 0.81 MV E/A: 0.93 sev ratio: 0.47 Med Peak E' Paramjit: 3.6 cm/sec E/E' med: 12.2 Lat Peak E' Paramjit: 7.2 cm/sec E/E' lat: 6.1 E/e' average: 9.2 MV dec time: 0.26 sec TR max paramjit: 256.9 cm/sec TR max P.4 mmHg PA V2 max: 101.0 cm/sec SV(LVOT): 70.7 ml PA V2 mean: 56.2 cm/sec PA mean P.5 mmHg PA pr(Accel): 51.6 mmHg Reading Physician:05:36 PM
--- NOTE | 2023-12-04 15:00 | OT.IP.EVAL ---
Past Medical History (Last Reviewed 12/04/23 @ 14:17 by King Ruiz MD) Bradycardia Chronic kidney disease Dizziness Enuresis, nocturnal only Hearing loss (~1989) Heart murmur Hiatal hernia History of urinary retention Hypertension Irregular heart rate Medicare annual wellness visit, subsequent Mumps (~1948) Osteoarthritis Prostatitis Shoulder pain (~2003) Skin lesion Splitting of urinary stream Tinnitus (~1989) Well adult exam Surgical History (Last Reviewed 12/04/23 @ 14:17 by King Ruiz MD) Anesthesia History of hernia repair (~05/2016) History of transurethral resection of prostate Occupational Therapy Inpatient Evaluation/Re-Eval M1 PT/OT-IP Prior Functional Status Start: 12/04/23 15:55 Freq: NEEDED Status: Active Protocol: Document 12/04/23 15:56 CGR (Rec: 12/04/23 16:13 CGR [id number]) Medical Review Prior Functional Status Medical History Reviewed Yes Communication Pt is an effective verbal communicator. Pt is RESIGHINI and is wearing hearing aids. Mobility and Gait Pt was IND in all mobility prior to admit without AD. Pt is active and works out daily. Activities of Daily Living and IADL's Pt was IND in all ADLs and functional mobility prior to admit. Pt is active and works out daily. Social History Household Members spouse Living Arrangements House Number of Floors (Floors) One Floor Number of Stairs To Enter/Railing? 2 steps with L railing assending. Home Environment High Toilet,Walk in Shower Home Equipment Straight Cane,Hand Held Shower ,Long Handled Shoe Horn,Grab Bars In Shower Employment Status Retired Additional Social History Comment Pt has a flat bed and crutches at home. M2 OT-IP Current Condition Start: 12/04/23 15:55 Freq: Status: Active Protocol: Document 12/04/23 15:56 CGR (Rec: 12/04/23 16:13 CGR [id number]) Occupational Therapy Current Condition Current Condition Evaluation Date 12/04/23 Treatment Diagnosis L arm and leg weakness, L facial droop Diagnosis Onset Date 12/02/23 M3 OT- IP Subjective and Pain Start: 12/04/23 15:55 Freq: Status: Active Protocol: Document 12/04/23 15:56 CGR (Rec: 12/04/23 16:13 CGR [id number]) OT- Subjective Occupational Therapy Visit Type Type Initial Evaluation Visit Start Time 14:40 Visit Stop Time 15:00 Notes Pt's present throughout session. Occupational Therapy Visit Comments Patient Comments This all started on Sunday. I woke up today hoping I could walk like a normal person again but I couldn't. OT Pain Assessment Pain When Pain Assessed At Rest Pain Present Pain Present Denied Pain M4 OT- IP ADL's Start: 12/04/23 15:55 Freq: Status: Active Protocol: Document 12/04/23 15:56 CGR (Rec: 12/04/23 16:13 CGR [id number]) OT [id number] Comments OT Self-Feeding Comments not meal time OT ADL-Grooming Comments OT Grooming Comments not performed OT ADL-Oral Care Comments Oral Care Comments not performed OT ADL-Dressing General Eval Lower Body Dressing Ability Standby Assistance Areas Needing Assistance Underpants/Brief Comments OT Dressing Comments Pt needed extra time form donning briefs seated on toielt. Pt states that he can' t do his socks at this time but typically he can do them. OT ADL-Toileting General Evaluation Toileting Ability Standby Assistance Areas Needing Assistance Manage Clothing Comments OT Toileting Comments Pt urianted seated on toeilt. OT ADL-Bathing Comments OT Bathing Comments not performed M5 OT- IP IADL's Start: 12/04/23 15:55 Freq: Status: Active Protocol: Document 12/04/23 15:56 CGR (Rec: 12/04/23 16:13 CGR [id number]) OT-Instrumental Activities of Daily Living Deficits IADL Deficits Identified No Deficits Home Safety Awareness Awareness of Need for Assistance at Home Good Awareness Ability to Problem Solve Emergency Able to Problem Solve Situations Medication Management Medication Management No Deficits Identified Money Management Money Management No Deficits Identified Meal Preparation Meal Preparation Caregiver Provides Assist Events Specialist Events Specialist Caregiver Provides Assist Driving Driving Comments 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 M6 OT- IP Functional Cognition Start: 12/04/23 15:55 Freq: Status: Active Protocol: Document 12/04/23 15:56 CGR (Rec: 12/04/23 16:13 CGR [id number]) Cognitive Factors Limiting Selfcare Function Cognitive Ability Level of Alertness Alert Patient Orientation Name,Age,Birthday,Month,Year, Day of Week,Place,Situation Attention Span Ability Capable of Focused Attention, Capable of Sustained Attention Ability to Follow Commands Able to Follow One Step Commands with Increased Time, Able to Follow One Step Commands with Repetition Cognitive Comments Cognitive Assessment Comments Pt was able to state the it was the begining of November but not the date. Pt's states that this is his baseline. OT- Vision and Hearing OT- Hearing Assessment OT- Hearing Assessment Hearing Impaired,Use of Hearing Aids OT- Vision Assessment Visual Acuity Glasses For Reading Visual Attentiveness WFL Occular Pursuits WFL Visual Convergence WFL M7 OT- IP Mobility and Balance Start: 12/04/23 15:55 Freq: Status: Active Protocol: Document 12/04/23 15:56 CGR (Rec: 12/04/23 16:13 CGR [id number]) OT- Bed Mobility Assessment Supine to Sit Supine to Sit Assist Standby Assistance Scooting Scooting to Edge of Bed Standby Assistance OT-Transfer Assessment Sit to and From Stand Sit to and from Stand Contact Guard Assistance Transfers Transfer Ability Contact Guard Assistance Technique Transfer Destination Bed,Chair,Toilet Transfer Technique Stand Step Pivot Devices Transfer Assistive Devices Gait Belt,Front Wheeled Walker Comments Mobility Comments CGA for mobility but without coordinated steps. OT- Balance Assessment Sitting Balance and Reactions Static Sitting Balance Ability Good Dynamic Sitting Balance Ability Good M8 OT- IP Objective Assessments Start: 12/04/23 15:55 Freq: Status: Active Protocol: Document 12/04/23 15:56 CGR (Rec: 12/04/23 16:13 CGR [id number]) OT Gross Range of Motion Upper Extremity Range of Motion Assessment Within Functional Limits OT Strength Upper Extremity Strength Assessment Within Functional Limits Comments Strength Comments grossly 4+/5 to the RUE and 4/ 5 to the LUE OT- Coordination Assessment Upper Extremity Finger to Nose Test Left UE Impaired Finger Tapping Test Left UE Impaired OT-Muscle Tone Assessment Muscle Tone WNL Yes OT Sensation Assessment Edema Edema Absent M9 OT- IP Assessment and Plan Start: 12/04/23 15:55 Freq: Status: Active Protocol: Document 12/04/23 15:56 CGR (Rec: 12/04/23 16:13 CGR [id number]) OT Summary Assessment and Plan Potential Rehabilitation Potential Excellent Analytic Complexity at Evaluation Moderate Summary OT Impairments Strength,Balance,Functional Mobility,Dressing,Toileting, Bathing,Toilet Transfers, Shower Transfers,Activity Tolerance Progress Towards Goals Progressing Toward Goals Assessment Summary Pt presents as a moderate complexity evalution s/p admit for L sided weakness. Pt displays L sided weakness in the UE and slight decline in coordination both fine and gross. Pt ambulated in today session with a walker and CGA but typically ambulates without AD. Pt is planned for MRI. Pt currently high level stroke like symptoms. Of note, pt states the he has had vastly increased urinary frequency and incontinence. Pt changed brief during OT session after starting to urinate while getting out of bed. Pt will continue to benefit from OT services. Recommend acute rehab vs home with family support. Goals Grooming Goal Independent Dressing Goal Independent Toileting Goal Independent Bathing Goal Independent Toilet Transfer Goal Independent Shower Transfer Goal Independent Days to Meet Goals 10 Frequency of Treatment Frequency Of Treatment Once a Day Treatment Plan OT Treatment Plan ADL Training,Functional Mobility,Patient/Family Education,Discharge Planning Other Treatment Recommendations and Next shower, LB dressing, UE Treatment Focus coordinaiton Discharge Recommendations OT Discharge Recommendations Home with Assistance,Acute Rehab Other Discharge Recommendations Acute rehab vs home with assist. Pt is unlikely to agree to SNF. Home Equipment Needs 2ww, shower chair, sock aid? Transportation Needs at Discharge Private Vehicle
[2023-12-04] MEDS: ASPIRIN EC 81 MG TABLET PO (16:03)
[2023-12-04] MEDS: HEPARIN 5,000 UNIT/ML VIAL 5000 UNIT SUBCUT ×2 (16:03→21:22)
[2023-12-04] MEDS: CLOPIDOGREL 75 MG TABLET PO (16:03)
[2023-12-04] MEDS: ATORVASTATIN 20 MG TABLET 80 MG PO (21:22)
[2023-12-04] MEDS: diphenhydrAMINE 25 MG TABLET 50 MG PO (21:22)
[2023-12-05] VITALS (7 sets, daily range): BP systolic 125–176; BP diastolic 77–135; PULSE 53–74; RESP 16–20; TEMP 36.7–37.1; O2SAT 94–98
[2023-12-05 06:47] LABS: Add Manual Diff / Slide Review NO; Basophils Absolute Auto 100 /uL (0-100); Basophils Percent Auto 1.1 % (0-2); Eosinophils Absolute Auto 200 /uL (0-450); Eosinophils Percent Auto 3.4 % (2-4); Hematocrit 39.9 % (41-53); Hemoglobin 13.6 g/dL (13.5-17.5); Lymphocytes Absolute Auto 1300 /uL (1100-4500); Mean Corpuscular Hemoglobin 32.2 PG (26-34); Mean Corpuscular Volume 94.5 fL (80-100); Monocytes Absolute Auto 600 /uL (0-900); Monocytes Percent Auto 8.8 % (3-14); Neutrophils Absolute Auto 4500 /uL (1500-7000); Neutrophils Percent Auto 66.7 % (50-75); Platelet Count 147 X10^3/uL (150-400); Red Blood Cell Count 4.22 X10^6/uL (4.5-5.9); Red Cell Distribution Width 15.2 % (11.6-14.8); White Blood Cell Count 6.7 X10^3/uL (4.5-11.0)
[2023-12-05 07:00] LABS: BUN Creatinine Ratio 18.1 (6-22); Blood Urea Nitrogen 25 mg/dL (9-20); Calcium 8.9 mg/dL (8.4-10.2); Carbon Dioxide 25 mmol/L (22-32); Chloride 108 mmol/L (98-107); Estimated Glomerular Filt Rate 50 mL/min (>60); Glucose 86 mg/dL (80-110); HEMOLYSIS < 15 (0-50); Potassium 3.9 mmol/L (3.4-5.1); Sodium 138 mmol/L (137-145)
--- NOTE | 2023-12-05 07:09 | P.PN_ITS ---
Subjective Subjective Interval history: S: He was doing well, he was left leg and arm weakness. His left leg is quite weak with a 2-3 second straight leg raise. He was ataxia of the left arm. He would himself in the face with his remote control today while holding it up. He was a left black eye. Therapies recommended inpatient rehab, referral is made, he agrees. 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 He denies a history of previous stroke. Exam Vital Signs (past 8 hours): - 12/05/23 04:44 Temperature 98.7 F Pulse Rate 53 L Respiratory Rate 18 Blood Pressure 147/82 H Pulse Oximetry 98 Oxygen Delivery Method Room Air Oxygen Flow Rate 0 Narrative Exam Narrative: NAD, alert and oriented. Fluent speech. Lungs are clear, normal rate and effort. Heart is regular, no murmur gallop or rub. Abdomen is soft, non distended. Extremities are free of edema. Neuro: Impaired left leg raise with the about 3 seconds. The left arm can be lifted over the head by as ataxic. He has left facial droop and slight slurring of the speech. Objective Labs 12/05/23 06:15 12/05/23 06:15 Labs: Laboratory Results - last 24 hr 12/04/23 12/05/23 10:05 06:15 WBC 8.5 6.7 RBC 4.31 L 4.22 L Hgb 13.7 13.6 Hct 40.7 L 39.9 L MCV 94.6 94.5 MCH 31.9 32.2 MCHC 33.7 34.0 RDW 15.4 H 15.2 H Plt Count 162 147 L Neut % (Auto) 71.3 66.7 Lymph % (Auto) 19.3 L 20.0 L [place] % (Auto) 6.9 8.8 Eos % (Auto) 1.7 L 3.4 Baso % (Auto) 0.8 1.1 Neut # (Auto) 6100 4500 Lymph # (Auto) 1600 1300 [place] # (Auto) 600 600 Eos # (Auto) 100 200 Baso # (Auto) 100 100 PT 10.4 INR 0.9 APTT 30 Sodium 140 138 Potassium 4.1 3.9 Chloride 109 H 108 H Carbon Dioxide 23 25 BUN 26 H 25 H Creatinine 1.45 H 1.38 H Estimated GFR 47 L 50 L BUN/Creatinine Ratio 17.9 18.1 Glucose 84 86 Calcium 9.4 8.9 Total Bilirubin 0.6 AST 29 ALT 18 Alkaline Phosphatase 56 Total Protein 6.6 Albumin 4.3 Globulin 2.3 Albumin/Globulin Ratio 1.9 [facility] Medical History Osteoarthritis Chronic kidney disease Hypertension Skin lesion Heart murmur Irregular heart rate Dizziness Medicare annual wellness visit, subsequent Prostatitis Well adult exam History of urinary retention Splitting of urinary stream Enuresis, nocturnal only Shoulder pain (~2003) Mumps (~1948) Tinnitus (~1989) Hearing loss (~1989) Hiatal hernia Bradycardia Surgical History History of transurethral resection of prostate Anesthesia History of hernia repair (~05/2016) Family History Father Ruptured, aorta Sister Giant cell arteritis Social History household members: spouse Smoking Status: Former smoker Tobacco: How many years used: 20 quit status: quit date established (05/07/1979) alcohol intake: current substance use type: does not use Assessment & Plan Assessment & Plan narrative: 1. CVA with left face, arm, and leg weakness and delayed presentation, present on admission and active. 2. Hypertension, present on admission and active. 3. Chronic kidney disease, present on admission and active. PLAN: -we will continue medical therapy. -continue therapies with PT and OT. -referral to inpatient rehab. Inpatient status, anticipate 2 midnights of care. Full resuscitation. OLYA is December 05, inpatient rehab. Time-Based Coding :: 20 min spent with patient and on the chart (including review of chart, obtaining history, exam, reviewing outside data, placing orders, documenting exam and treatment plan, and counseling patient) on [DATE]. Quality VTE Deep Vein Thrombosis/Pulmonary Embolism Present on Admission: No
[2023-12-05] MEDS: HEPARIN 5,000 UNIT/ML VIAL 5000 UNIT SUBCUT ×2 (08:29→20:18)
[2023-12-05] MEDS: ASPIRIN EC 81 MG TABLET PO (08:29)
[2023-12-05] MEDS: CLOPIDOGREL 75 MG TABLET PO (08:29)
--- NOTE | 2023-12-05 09:05 | PT.IIE ---
Surgical History (Last Reviewed 12/04/23 @ 14:17 by King Ruiz MD) Anesthesia History of hernia repair (~05/2016) History of transurethral resection of prostate Medical History (Last Reviewed 12/04/23 @ 14:17 by King Ruiz MD) Bradycardia Chronic kidney disease Dizziness Enuresis, nocturnal only Hearing loss (~1989) Heart murmur Hiatal hernia History of urinary retention Hypertension Irregular heart rate Medicare annual wellness visit, subsequent Mumps (~194) Osteoarthritis Prostatitis Shoulder pain (~2003) Skin lesion Splitting of urinary stream Tinnitus (~1989) Well adult exam Physical Therapy Inpatient Evaluation/Re-Eval M1 PT/OT-IP Prior Functional Status Start: 12/05/23 12:03 Freq: NEEDED Status: Active Protocol: Document 12/05/23 09:05 AB (Rec: 12/05/23 12:18 AB [id number]) Medical Review Prior Functional Status Medical History Reviewed Yes Communication able to make needs known; pt is [place]: uses hearing aids Mobility and Gait Pt stated that he was independent with all mobilities and ambulation without AD. per OT note: Pt is active and works out daily. Activities of Daily Living and IADL's per OT note: Pt was IND in all ADLs and functional mobility prior to admit. Pt is active and works out daily. Social History Household Members spouse Living Arrangements House Number of Floors (Floors) One Floor Number of Stairs To Enter/Railing? 2 steps with L railing assending. Home Environment High Toilet,Walk in Shower Home Equipment Straight Cane,Crutches,Hand Held Shower,Long Handled Shoe Horn,Grab Bars In Shower Employment Status Retired M2 PT-IP Current Condition Start: 12/05/23 12:03 Freq: NEEDED Status: Active Protocol: Document 12/05/23 09:05 AB (Rec: 12/05/23 12:18 AB [id number]) Physical Therapy Current Condition Current Condition Evaluation Date 12/05/23 Treatment Diagnosis R CVA; difficulty in walking Onset Date 12/04/23 M3 PT-IP Subjective Start: 12/05/23 12:03 Freq: NEEDED Status: Active Protocol: Document 12/05/23 09:05 AB (Rec: 12/05/23 12:18 AB [id number]) Subjective Physical Therapy Visit Type Type Initial Evaluation Visit Start Time 09:05 Visit Stop Time 09:41 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 of 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 Visits 0 Physical Therapy Visit Comments Patient Comments agreeable to do PT Therapy Pain Assessment Pain Present Pain Present Denied Pain M4 PT-IP Mobility and Gait Start: 12/05/23 12:03 Freq: NEEDED Status: Active Protocol: Document 12/05/23 09:05 AB (Rec: 12/05/23 12:18 AB [id number]) PT-Bed Mobility Assessment Supine to Sit Supine to Sit Standby Assistance Sit to Supine Sit to Supine Standby Assistance PT-Transfer Assessment Sit to and From Stand Sit to and from Stand Contact Guard Assistance, Minimal Assistance,1 Person Assistance,Use of Upper Extremities Equipment Transfer Assistive Device Gait Belt,Front Wheeled Walker Orthotic/Prosthetic Devices or Brace: No Transfers Transfer Destination Bed,Chair Transfer Technique ambulated Transfer Ability Level of Assist Minimal Assistance,Moderate Assistance,1 Person Assistance ,Use of Upper Extremities Comments Mobility Comments pt sitting on chair and agreeable to do PT. obtained PLOF and home set up from pt. spouse arrived. pt completed sit to stand from chair min A and cues. pt ambulated to EOB ~ 20 ft using FWW min to mod A and cues. presents with antalgic gait with slight L knee buckling and increase lateral trunk leaning to the L . pt completed sit<>supine SBA. educated pt regarding trunk control and LLE control with ambulation with quads activation. pt completed sit to stand from EOB min A. encourage to push equally with BLE and not pull on the FWW. pt ambulated back to chair using fWW min A and cues. cued for L quads activation. pt sat on the chair. completed sit<>stand x 3 reps CGA to min A and max cues. Static standing balance using FWW and cued for upright posture and LLE stability. pt sat back on chair. positioned on the chair. call light and table placed within reach. informed pt and spouse regarding acute rehab recommendation and stated that they will think about it. Gait Assessment Gait Gait Assistance Required: Minimum Assistance,Moderate Assistance Distance (Feet) 20 Able to Maintain Weight Bearing Status Yes During Gait Assistive Devices Assistive Device Gait Belt,Front Wheeled Walker Orthotic/Prosthetic Devices or Brace: No Gait Deviations General Gait Pattern Antalgic,Ataxic,Decreased Stride Length,Decreased Feet Clearance,Lateral Trunk Lean Factors Limiting Gait Function Factors Limiting Gait Function Decreased Activity Tolerance, Decreased Strength,Difficulty Following Directions, Incoordination,Limited Range of Motion,Pain,Poor Balance, Poor Safety Awareness PT-Balance Assessment Sitting Balance and Reactions Static Sitting Balance Ability Good Dynamic Sitting Balance Ability Fair Standing Balance and Reactions Static Standing Balance Ability Fair Dynamic Standing Balance Ability Poor Device Used FWW M5 PT-IP Objective Assessments Start: 12/05/23 12:03 Freq: NEEDED Status: Active Protocol: Document 12/05/23 09:05 AB (Rec: 12/05/23 12:18 AB [id number]) Orientation Orientation/Cognition Level of Alertness Alert Orientation Name,Place,Situation Language Function Ability Hard of Hearing Safety Awareness Decreased Safety Awareness Gross Range of Motion Lower Extremity ROM Assessment Within Functional Limits Strength Lower Extremity Strength Assessment Left Impaired Hip 3+/5 Knee 3+/5 Sensation Assessment Sensation Gross Sensation WNL Muscle Tone Muscle Tone WNL Yes M6 PT-IP Treatment Start: 12/05/23 12:03 Freq: NEEDED Status: Active Protocol: Document 12/05/23 09:05 AB (Rec: 12/05/23 12:18 AB [id number]) Physical Therapy Treatment Education Education Provided Safety M7 PT-IP Assessment and Plan Start: 12/05/23 12:03 Freq: NEEDED Status: Active Protocol: Document 12/05/23 09:05 AB (Rec: 12/05/23 12:18 AB [id number]) PT Summary Assessment and Plan Potential Rehabilitation Potential Fair Status of Condition at Evaluation Evolving Summary Impairments Pain,ROM,Strength,Balance, Coordination,Sensation,Tone, Cognition,Bed Mobility, Transfers,Gait,Activity Tolerance Assessment Summary pt is an 88 y/o M who presented to the ED for L sided weakness. Pt admitted for CVA and found to have R kenneth infarct. pt with L sided weakness needing min A for mobility using FWW. pt will benefit from acute rehab. will continue to assess progress. Goals Bed Mobility Goal Independent Transfer Goal Independent,Front Wheeled Walker Gait Goal Independent,Front Wheel Walker Gait Distance 200 Other Goals improve transfers and ambulation using LRAD/without AD ~ 300 ft mod I up/down 2 steps L rail ascending mod I Days to Meet Goals 10 Frequency of Treatment Frequency Of Treatment Once a Day Treatment Plan Physical Therapy Treatment Plan Bed Mobility Training,Transfer Training,Gait Training, Therapeutic Exercise,Balance Retraining,Discharge Planning, Hot or Cold Pack,Neuromuscular Re-ed,Coordination Retraining ,Manual Therapy Precautions Other Precautions falls Recommendations To Nursing Amount of Assist Needed 1 Person Assist Discharge Recommendations PT Discharge Recommendations Acute Rehab Transportation Needs at Discharge Private Vehicle
[2023-12-05] MEDS: lisinopriL 10 MG TABLET PO (09:32)
--- NOTE | 2023-12-05 14:00 | OT.IP.TRT ---
Current Diagnoses Cerebral infarction, unspecified (12/04/23) Occupational Therapy Treatment Note M2 OT-IP Current Condition Start: 12/04/23 15:55 Freq: Status: Active Protocol: Document 12/04/23 15:56 CGR (Rec: 12/04/23 16:13 CGR [id number]) Occupational Therapy Current Condition Current Condition Evaluation Date 12/04/23 Treatment Diagnosis L arm and leg weakness, L facial droop Diagnosis Onset Date 12/02/23 M3 OT- IP Subjective and Pain Start: 12/04/23 15:55 Freq: Status: Active Protocol: Document 12/05/23 14:07 CCC (Rec: 12/05/23 14:19 CCC [id number]) OT- Subjective Occupational Therapy Visit Type Type Treatment Note Visit Start Time 13:27 Visit Stop Time 14:06 Occupational Therapy Visit Comments Patient Comments Pt agreed to do cognitive assessments and FMS skills. Pt 's present in the room. Patient/Caregiver Goals TO go to acute rehab. OT Pain Assessment Pain When Pain Assessed At Rest Pain Present Pain Present Denied Pain M4 OT- IP ADL's Start: 12/04/23 15:55 Freq: Status: Active Protocol: Document 12/04/23 15:56 CGR (Rec: 12/04/23 16:13 CGR [id number]) OT [id number] Comments OT Self-Feeding Comments not meal time OT ADL-Grooming Comments OT Grooming Comments not performed OT ADL-Oral Care Comments Oral Care Comments not performed OT ADL-Dressing General Eval Lower Body Dressing Ability Standby Assistance Areas Needing Assistance Underpants/Brief Comments OT Dressing Comments Pt needed extra time form donning briefs seated on toielt. Pt states that he can' t do his socks at this time but typically he can do them. OT ADL-Toileting General Evaluation Toileting Ability Standby Assistance Areas Needing Assistance Manage Clothing Comments OT Toileting Comments Pt urianted seated on toeilt. OT ADL-Bathing Comments OT Bathing Comments not performed M5 OT- IP IADL's Start: 12/04/23 15:55 Freq: Status: Active Protocol: Document 12/04/23 15:56 CGR (Rec: 12/04/23 16:13 CGR [id number]) OT-Instrumental Activities of Daily Living Deficits IADL Deficits Identified No Deficits Home Safety Awareness Awareness of Need for Assistance at Home Good Awareness Ability to Problem Solve Emergency Able to Problem Solve Situations Medication Management Medication Management No Deficits Identified Money Management Money Management No Deficits Identified Meal Preparation Meal Preparation Caregiver Provides Assist Osteopathic Neurologist Osteopathic Neurologist Caregiver Provides Assist Driving Driving Comments 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 M6 OT- IP Functional Cognition Start: 12/04/23 15:55 Freq: Status: Active Protocol: Document 12/05/23 14:07 [facility] (Rec: 12/05/23 14:19 [facility] [id number]) Cognitive Factors Limiting Selfcare Function Cognitive Ability Level of Alertness Alert Patient Orientation Name,Age,Birthday,Month,Year, Day of Week,Place,Situation Attention Span Ability Capable of Focused Attention, Capable of Sustained Attention ,Unable to Sustain Attention Ability to Follow Commands Able to Follow One Step Commands Executive Function Ability Unable to Filter Distractions, Unable to Organize Plans, Unable to Remember Details Cognitive Tests SLUMS Pt scored 22/30 on the SLUMS which implies mild neurocognitive disorder. Pt score may be affected by his CVA and also pt states got distracted and not able to answer the questions to the paragraph read. Cognitive Comments Cognitive Assessment Comments Pt scored 134 seconds on [place] Making Part B which implies severe deficits for visual attentions, speed of processing, task switching, mental flexibility, and executive functioning. Pt well aware not to drive at this time. M7 OT- IP Mobility and Balance Start: 12/04/23 15:55 Freq: Status: Active Protocol: Document 12/04/23 15:56 CGR (Rec: 12/04/23 16:13 CGR [id number]) OT- Bed Mobility Assessment Supine to Sit Supine to Sit Assist Standby Assistance Scooting Scooting to Edge of Bed Standby Assistance OT-Transfer Assessment Sit to and From Stand Sit to and from Stand Contact Guard Assistance Transfers Transfer Ability Contact Guard Assistance Technique Transfer Destination Bed,Chair,Toilet Transfer Technique Stand Step Pivot Devices Transfer Assistive Devices Gait Belt,Front Wheeled Walker Comments Mobility Comments CGA for mobility but without coordinated steps. OT- Balance Assessment Sitting Balance and Reactions Static Sitting Balance Ability Good Dynamic Sitting Balance Ability Good M8 OT- IP Objective Assessments Start: 12/04/23 15:55 Freq: Status: Active Protocol: Document 12/05/23 14:07 CCC (Rec: 12/05/23 14:19 [facility] [id number]) OT- Coordination Assessment Comments Coordination Comments Right hand 9 hole peg 24 seconds versus 98 seconds for left hand. Pt's left hand decreased ability to feel to get his hearing aid in all the way. Able to have pt look at a mirror to be able to efficiently get the hearing aid in with his left hand. Work on picking up items with his left hand, finger to thumb and thumb to finger opposition . Pt not able to spanish moss picker a dime with his left hand. Pt states uses the fork in the left hand to hold down the meat and also spanish moss picker to et and having difficulty to supinate his left hand appropriately today to do it effectively. M9 OT- IP Assessment and Plan Start: 12/04/23 15:55 Freq: Status: Active Protocol: Document 12/05/23 14:07 [facility] (Rec: 12/05/23 14:19 [facility] [id number]) OT Summary Assessment and Plan Potential Rehabilitation Potential Excellent Analytic Complexity at Evaluation Moderate Summary OT Impairments Strength,Balance,Functional Cognition,Functional Mobility, Dressing,Toileting,Bathing, Toilet Transfers,Shower Transfers,Activity Tolerance Progress Towards Goals Progressing Toward Goals Assessment Summary Able to educate pt on techniques to improve his FMS for left hand today. Pt having some difficulty to recall objects after time passed and to recall information after paragraph read as per pt gets easily distracted and scored 22/30 on the SLUMS. Pt is an excellent candidate for acute rehab and has a very supportive . Goals Grooming Goal Independent Dressing Goal Independent Toileting Goal Independent Bathing Goal Independent Toilet Transfer Goal Independent Shower Transfer Goal Independent Days to Meet Goals 10 Frequency of Treatment Frequency Of Treatment Once a Day Treatment Plan OT Treatment Plan ADL Training,Functional Mobility,Patient/Family Education,Discharge Planning Other Treatment Recommendations and Next shower, LB dressing Treatment Focus Discharge Recommendations OT Discharge Recommendations Acute Rehab Transportation Needs at Discharge Private Vehicle
--- NOTE | 2023-12-05 14:22 | CM.DANOTE ---
Initial DCP Assessment Visit Note Reviewed EMR and team rounds for medical status and updates Met with pt at bedside to introduce self and role, pt was found to be sitting in the recliner, alert/oriented, able to discuss his concerns and plan for d/c. Acute Rehab is being recommended by therapies, will complete a referral to [facility] for their review. Pt lives independently with his at baseline in their own home in [place]. She will also plan to take him to acute rehab once he's medically cleared for d/c. Payor: Medicare PCP: Dr. Oliver Moy Pt is a 88 year-old M who presented to the ED last evening c/o left leg/arm weakness and facial droop. This had started 2-days prior on Sunday, when they were driving to an event and he couldn't move his leg to get out of the car, he also experienced numbness and tingling sensations. His family took him to [facility], where he was given a head CT, then was cleared to go home. He was beginning to see some improvement on Sunday, however by Sunday he had new facial droop and return of the left-sided weakness/numbness and tingling. Head CT was negative for abnormalities, but the MRI of the head showed a CVA-a small sub acute kenneth infacrct, and a small chronic left kenneth infarct. He is still not in control of the of his L-hand today, and has some residual processing delays. DCP will submit the referral for acute rehab, and monitor for any further evolving needs prior to his d/c. 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 Yes Advance Directives on File Yes History Provided By Patient,Medical Record Has Patient been admitted in last 30 No days? Prior Living Arrangements House Household Members spouse Type of transporation used prior to Drives own vehicle admit Independent with ADL's Yes Is patient alert and oriented? Yes Caregiver for Another No Patient/Family Preference OP PT Therapy Discharge Plan Home Community Services Physical Therapy Transportation Arrangement Spouse Referrals Initiated None needed Whiteboard Updated in Patient Room with Yes name and ext. # of Bus Boy Review Status In Process Please Provide Date Initial DC 12/05/23 Assessment Was Performed
--- NOTE | 2023-12-05 15:41 | ST.IPCSEOM ---
Visit Care Team Role Provider Type ED* *Temp Referring Provider Physician Specialty: Emergency Medicine Address: Phone: Fax: Email: Oliver Moy DO Primary Care Provider Physician Specialty: Family Practice Address: [address] [place] [address], [id number] Email: [email or web address] [facility] Family Provider Advanced Pipe Recovery Specialist Specialty: Family Practice Address: [address] [place] [address], [facility] Email: [email or web address] Haily Leslie DO Emergency Provider Physician Specialty: Emergency Medicine Address: [address] [place] [address], [facility] Email: [email or web address] King Ruiz MD Admit Provider Physician Attending Provider Specialty: Internal Medicine Address: [address] [place] [address], [facility] Email: [email or web address] Current Diagnoses Cerebral infarction, unspecified (12/04/23) Past Medical History (Last Reviewed 12/04/23 @ 14:17 by King Ruiz MD) Bradycardia (Medical) Chronic kidney disease (Medical) Dizziness (Medical) Enuresis, nocturnal only (Medical) Hearing loss (Medical ~1989) Heart murmur (Medical) Hiatal hernia (Medical) History of urinary retention (Medical) Hypertension (Medical) Irregular heart rate (Medical) Medicare annual wellness visit, subsequent (Medical) Mumps (Medical ~194) Osteoarthritis (Medical) Prostatitis (Medical) Shoulder pain (Medical ~2003) Skin lesion (Medical) Splitting of urinary stream (Medical) Tinnitus (Medical ~1989) Well adult exam (Medical) Speech-Language Pathology Swallow Evaluation SPOT CLEANER Clinical Swallow Evaluation Start: 12/05/23 14:00 Freq: Status: Active Protocol: Document 12/05/23 14:00 CG (Rec: 12/05/23 14:03 CG [id number]) Clinical Swallow Evaluation Session Time Visit Start Time 14:15 Visit Stop Time 14:50 Total Visit Minutes 25 Visit Information Visit Number Initial Evaluation Referral Referring Provider Dr. Ruiz (hospitalist) Reason for Referral CVA, coughing on liquids Setting Assessment Location Acute Care Visit Type Note Type Initial evaluation Patient Information History H&P Per ED: 88-year-old male with history of hypertension, presents with complaint of left lower extremity numbness of the arm and leg as well as some facial droop. Symptoms started Sunday he would driven to the local art [place] could not get out of the car was sudden onset and unable to lift or move his leg and had some numbness and tingling. Have any pain, noticed a little bit of mild sensation change in his left upper extremity. Was seen at [facility] head CT of his head and neck was given an aspirin and told to take an aspirin daily and discharged home. Patient states yesterday was a little bit better able to ambulate a little bit better but still having left-sided weakness today seems worse in now has new facial droop that is seems to be worsening compared symptoms continue to all be left-sided. Denies any headache, no fevers, notes some blurred vision, no chest pain or shortness of breath, no nausea or vomiting sometimes issues with constipation but has been having bowel movements no urinary symptoms no incontinence. 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 He states only medication is lisinopril 20 mg daily, did take an aspirin 324 mg this morning. He has had prior hip replacement, diaphragmatic hernia repair, stapedectomy. No known drug allergies, no tobacco has 2 beers nightly, no recreational drugs. Dr. Moy is his primary care physician. Patient referred to speech therapy for evaluation of dysphagia due to dx CVA and occasional s/sx dysphagia with liquids per nurse. Pt states that he has been having more difficulty swallowing liquids for the past couple of years, but that it has worsened since his stroke. Before, he reported coughing on liquids 1 -2 times/week, but now he coughs on liquids multiple times per day. He does endorse a history of reflux/GERD, but has not pursued medical management. Subjective Observations Pt was seated upright in chair at bedside with present in the room upon ST entry. Pt awake, alert, oriented and agreeable to SPOT CLEANER evaluation. Reported by Patient/Caregiver Other Symptoms Coughing,Difficulty swallowing liquids Comment Pt reports hx difficulty swallowing liquids for a couple of years, but exacerbated significantly with recent stroke. He reports feeling that liquids such as water and coffee go down the wrong tube. He also reports some difficulty with self- feeding 2/ left hand weakness. Current Diet Regular (IDDSI 7) Baseline Feeding Method Needs some assistance The IDDSI Framework Protocol: IDDSI.1 Objective Assessment Mental Status Alert,Responsive,Cooperative Oral Integrity Oral residue Dentition Decay Lip Function Mild impairment Observation of Lips at Rest Left sided weakness/Drooping Pucker Within normal limits Lip Retraction Left sided weakness/Drooping Observations of Tongue at Rest Within normal limits Tongue Protrusion Within normal limits Tongue Lateralization Within normal limits Jaw Function Mild impairment Comment OME significant for the following: -mild left sided weakness -strong reflexive cough -mild diffuse oral residue -mildly decayed dentition; crowns/fillings present Food and Liquid Trials Position During Assessment Upright (90 degrees) Liquids Trialed Thin (IDDSI 0) Solid Trials Purred (IDDSI 4),Minced & Moist (IDDSI 5),Regular (IDDSI 7) Administration Type Cup single sip,Cup consecutive sips Oral Impairment Moderately impaired Oral Phase Comments Thin liquid via small sips: Good oral acceptance and containment. Slow, discoordinated A-P transit. Suspect delayed pharyngeal swallow initiation. No anterior bolus loss. Thin liquid via consecutive sips: Good oral acceptance and containment. Slow, discoordinated A-P lingual transit. Pt appeared to have a difficult time sequencing sips during multiple sips trials. Suspect delayed pharyngeal swallow initiation. No anterior bolus loss. Puree (applesauce) via teaspoon -IDDSI 4: Good oral acceptance and containment. Mildly slowed A-P lingual transit. No oral residue following the swallow. Pudding via teaspoon - IDDSI 4 : Good oral acceptance and containment. Mildly slowed A- P lingual transit. No oral residue following the swallow. Ez cracker crushed into pudding (IDDSI 5): Good oral acceptance and containment. Adequate mastication and bolus formation. Mildly slowed A-P lingual transit. Mild oral residue on blade of tongue following the swallow without pt awareness of residue. Ez cracker (IDDSI 7): Good oral acceptance and containment. Adequate mastication and bolus formation. Mildly slowed A-P lingual transit. Mild- moderate oral residue on blade of tongue following the swallow, but pt was aware of residue. Pharyngeal Impairment Moderately impaired Pharyngeal Phase Comments Thin liquids via small sip: Coughing immediately after the swallow on approximately 30- 50% of trials. Penetration/ aspiration suspected. Reflexive cough response was strong. Wet/gurgly vocal quality intermittently as well as burping/reflux sounds in the throat; suspect possible retrograde flow. Thin liquids via consecutive sips: Wet/gurgly vocal quality intermittently as well as burping/reflux sounds in the throat; suspect possible retrograde flow. For 3oz water challenge, pt presented with hard cough immediately after the swallow (failed 3oz water challenge), indicative of possible aspiration. Puree, pudding, ez cracker mix, ez cracker: No overt s/sx aspiration/penetration, though silent aspiration cannot be ruled out without an instrumental assessment. Frequent burping/hiccupping after trials. Suspect possible esophageal involvement/retrograde flow. Susy Swallow Protocol Yes Results Failed 3 oz water challenge The IDDSI Framework Protocol: IDDSI.1 Findings Swallowing Function Oropharyngeal phase dysphagia Severity of Swallow Impairment Moderately impaired Contributing Factors to Swallow Delayed swallow initiation, Impairment Impaired airway protection Prognosis Fair Based on Age,Other (comment) Comment Pt with limited motivation to complete oral care. SPOT CLEANER discussed risks/benefits of different diet options to follow while awaiting instrumental assessment tomorrow. Explained that safest would be for the pt to only have water outside of mealtime when he has just completed oral care, as outlined by [facility] free water protocol. Less safe would be continuing to sip thin liquids in small sips, but not restricting to only after oral care. Least safe would be continuing to drink thin liquids in large volumes without restriction. Explained that less safe options increase pt's risk of developing aspiration pneumonia. Pt verbally expressed that he understood smaller sips were safer. SPOT CLEANER asked if he would be able to complete oral care each time he was going to have water; pt stated this does not seem feasible for him, so compliance with strict free water protocol is unlikely. SPOT CLEANER explained that not completing oral care right before consuming thin liquids increases his risk of developing aspiration pneumonia. Asked patient to verbally acknowledge that he understood that risk; pt stated, Yes. Discussed need for a modified barium swallow. MBS is scheduled for tomorrow at 11: 30am. Impact on Safety and Functioning Risk for aspiration Recommendations Instrumental Assessment Yes Swallowing Treatment Yes Recommended Solids Regular (IDDSI 7) Recommended Liquids Thin (IDDSI 0) Other Recommendations -Thin via small sips only -Recommend thin only after oral care. Risks of not following this recommendation have been explained to pt. -Diet recommendation updates pending MBS results -Regular heart healthy solids -Frequent oral care (3x/day) -Encourage pt to complete oral care himself -Check for pocketing after meals Safety Precautions/Swallowing Reduce distractions,Remain Recommendations upright (90 degrees) during all oral intake,Small bites and sips when eating,Strict oral care after intake,Check for pocketing Medication Recommendations As Tolerated Discharge Recommendations Inpatient rehab facility Education Patient/Caregiver Education Described results of evaluation,Patient expressed understanding of evaluation, Patient expressed agreement with goals & treatment plans, Family/caregivers expressed understanding of evaluation, Family/caregivers expressed agreement with goals & treatment plans,Patient expressed understanding of safety precautions,Patient expressed understanding of feeding recommendations,Family /caregivers expressed understanding of safety precautions,Family/caregivers expressed understanding of feeding recommendations, Patient requires further education/training,Family/ caregivers require further education/training Goals Short-term Goals 1. Pt will complete MBSS in order to objectively assess swallow function and determine safest least restrictive diet . Long-term Goals 1. Pt will safely and efficiently tolerate least restrictive diet (IDDSI 7/ IDDSI 0) without s/sx aspiration.
[2023-12-05] MEDS: ATORVASTATIN 20 MG TABLET 80 MG PO (20:18)
[2023-12-06] VITALS: BP 165/96; PULSE 52; RESP 18; TEMP 36.8; O2SAT 95
[2023-12-06 04:00] VITALS: BP 148/80; PULSE 62; RESP 19; TEMP 36.3; O2SAT 98
[2023-12-06 06:55] LABS: Add Manual Diff / Slide Review NO; Basophils Absolute Auto 100 /uL (0-100); Basophils Percent Auto 0.9 % (0-2); Eosinophils Absolute Auto 200 /uL (0-450); Eosinophils Percent Auto 3.1 % (2-4); Hematocrit 40.5 % (41-53); Hemoglobin 13.6 g/dL (13.5-17.5); Lymphocytes Absolute Auto 1200 /uL (1100-4500); Lymphocytes Percent Auto 18.1 % (25-40); Mean Corpuscular HGB Conc 33.7 % (30-36); Mean Corpuscular Hemoglobin 31.9 PG (26-34); Mean Corpuscular Volume 94.6 fL (80-100); Monocytes Absolute Auto 600 /uL (0-900); Monocytes Percent Auto 9.1 % (3-14); Neutrophils Absolute Auto 4700 /uL (1500-7000); Neutrophils Percent Auto 68.8 % (50-75); Platelet Count 170 X10^3/uL (150-400); Red Blood Cell Count 4.28 X10^6/uL (4.5-5.9); Red Cell Distribution Width 15.3 % (11.6-14.8); White Blood Cell Count 6.8 X10^3/uL (4.5-11.0)
[2023-12-06 07:07] LABS: BUN Creatinine Ratio 22.8 (6-22); Blood Urea Nitrogen 34 mg/dL (9-20); Calcium 8.9 mg/dL (8.4-10.2); Carbon Dioxide 23 mmol/L (22-32); Chloride 109 mmol/L (98-107); Estimated Glomerular Filt Rate 45 mL/min (>60); Glucose 93 mg/dL (80-110); HEMOLYSIS < 15 (0-50); Potassium 3.9 mmol/L (3.4-5.1); Sodium 137 mmol/L (137-145)
[2023-12-06 08:00] VITALS: BP 149/94; PULSE 72; RESP 18; TEMP 37; O2SAT 95
[2023-12-06 08:20] VITALS: BP 149/94
[2023-12-06] MEDS: lisinopriL 10 MG TABLET PO (08:20)
[2023-12-06] MEDS: CLOPIDOGREL 75 MG TABLET PO (08:20)
[2023-12-06] MEDS: HEPARIN 5,000 UNIT/ML VIAL 5000 UNIT SUBCUT (08:24)
[2023-12-06] MEDS: ASPIRIN EC 81 MG TABLET PO (08:24)
--- NOTE | 2023-12-06 09:19 | CM.DPC ---
DCP Cont. Reviewed EMR and team rounds for status updates. Pt has been accepted at [facility]. His sister will be driving him there today at 11:00am, no further DCP needs indicated at this time.
--- NOTE | 2023-12-06 09:35 | P.DS_ITS ---
History of Present Illness History of Present Illness Chief complaint: Numbness on left side of body. Narrative: From ED doctor: 88-year-old male with history of hypertension, presents with complaint of left lower extremity numbness of the arm and leg as well as some facial droop. Symptoms started Sunday he would driven to the local art festival could not get out of the car was sudden onset and unable to lift or move his leg and had some numbness and tingling. Have any pain, noticed a little bit of mild sensation change in his left upper extremity. Was seen at [facility] head CT of his head and neck was given an aspirin and told to take an aspirin daily and discharged home. Patient states yesterday was a little bit better able to ambulate a little bit better but still having left-sided weakness today seems worse in now has new facial droop that is seems to be worsening compared symptoms continue to all be left-sided. Denies any headache, no fevers, notes some blurred vision, no chest pain or shortness of breath, no nausea or vomiting sometimes issues with constipation but has been having bowel movements no urinary symptoms no incontinence. 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 He states only medication is lisinopril 20 mg daily, did take an aspirin 324 mg this morning. He has had prior hip replacement, diaphragmatic hernia repair, stapedectomy. No known drug allergies, no tobacco has 2 beers nightly, no recreational drugs. Dr. Moy is his primary care physician. On Anticoagulants: No ED Course: CT scan was obtained in the ED as well as a CTA. No acute findings. NIH score was 6, the patient was outside of the time window for thrombolytics. Subjective: He developed leg weakness on the left on Sunday. This got a little bit better on Sunday but his left arm was not coordinated. He was seen would be on Sunday with a negative head CT and a diagnosis of possible radiculopathy. On Sunday he was so weak when trying to get to the bathroom he needed help to get into the bathroom. He has relatively obvious arm and leg weakness as well as a facial droop and slurred speech today. They elected to come to this emergency department for further evaluation. 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 He denies headache, or trauma to the head. He does have history of TURP and notes frequent urination recently, but no fevers, chills, or hematuria. Discharge Providers Provider Date of admission: 12/04/23 12:25 Discharge Date: 12/06/23 Primary care physician: Oliver Moy DO Consults: 12/04/23 14:21 Consult to Discharge Planning Routine Comment: Consult to Occupational Therapy Evaluate & Treat Comment: Physician Instructions: Evaluate and treat Consult to Physical Therapy Evaluate & Treat Comment: Physician Instructions: Evaluate and Treat Consult to Speech Therapy Evaluate & Treat Comment: Physician Instructions: Evaluate and treat Discharge provider: King Ruiz MD Summary Hospital Course Discharge Diagnosis: 1. Left pontine CVA with left face, arm, and leg weakness and delayed presentation, present on admission and active. 2. Hypertension, present on admission and active. 3. Chronic kidney disease 3a, eGFR 45) present on admission and active. Hospital Course: The patient was admitted with 2 days of subacute left-sided weakness. Initial imaging with CT was negative for bleed. MRI confirmed an acute left pontine stroke and an old right pontine stroke. He denies history of a previous stroke. The patient did have fairly significant weakness of his arm and leg as well as arm ataxia. He was felt to be an excellent candidate for inpatient rehab and referrals were made with the acceptance on December 05. He will be treated with dual antiplatelet therapy for high-risk stroke for 21 days and then monotherapy thereafter. He did not take aspirin previously. He was also on high dose atorvastatin. He lives in [place] with his . Status at Discharge Cognitive/behavioral status at discharge: oriented Functional status at discharge: uses cane/walker Overall status at discharge: patient is not back to baseline Time Spent with Patient Time spent: Greater than 30 minutes Exam Vital Signs (past 8 hours): - 12/06/23 04:00 12/06/23 08:00 12/06/23 08:20 Temperature 97.3 F L 98.6 F Pulse Rate 62 72 Respiratory Rate 19 18 Blood Pressure 148/80 H 149/94 H 149/94 H Pulse Oximetry 98 95 Oxygen Delivery Method Room Air Oxygen Flow Rate 0 Narrative Exam Narrative: NAD, alert and oriented. Fluent speech. Lungs are clear, normal rate and effort. Heart is regular, no murmur gallop or rub. Abdomen is soft, non distended. Extremities are free of edema. Limited left it leg raise to 3-4 seconds. The left arm can be lifted above the head but has obvious ataxia. Mild left facial droop and mild slurring of speech. Objective ECG Impression: NSR. Imaging Brain CT and CTA of head and neck:: Radiologist's impression: Head and neck CTA: No large vessel occlusion, significant stenosis, vascular dissection or aneurysm. Any quantitative measurements of stenosis were performed using NASCET criteria. Head CT: No acute intracranial pathology. MRI - head: Radiologist's impression: 1. Volume loss and small vessel ischemic disease. 2. Small subacute right kenneth infarct. 3. Small chronic left kenneth infarct. Echo: Radiologist's impression: nterpretation Summary The left ventricle is normal in size. Left ventricular systolic function is normal. The ejection fraction is estimated to be 60-65%. There are no obvious focal wall motion abnormalities noted but poor endocardial definition reduces the sensitivity for the detection of such. Diastolic parameters suggest a relaxation abnormality of the left ventricle, consistent with probable normal filling pressures. The right ventricle is not well visualized. The right ventricular systolic function is normal. The left atrium is severely dilated. There is mild to moderate mitral regurgitation. There is mild to moderate aortic regurgitation. The aortic root is mildly dilated. The ascending aorta is moderately enlarged. Labs 12/06/23 06:40 12/06/23 06:40 Labs: Laboratory Results - last 24 hr 12/06/23 06:40 WBC 6.8 RBC 4.28 L Hgb 13.6 Hct 40.5 L MCV 94.6 MCH 31.9 MCHC 33.7 RDW 15.3 H Plt Count 170 Neut % (Auto) 68.8 Lymph % (Auto) 18.1 L [place] % (Auto) 9.1 Eos % (Auto) 3.1 Baso % (Auto) 0.9 Neut # (Auto) 4700 Lymph # (Auto) 1200 [place] # (Auto) 600 Eos # (Auto) 200 Baso # (Auto) 100 Sodium 137 Potassium 3.9 Chloride 109 H Carbon Dioxide 23 BUN 34 H Creatinine 1.49 H Estimated GFR 45 L BUN/Creatinine Ratio 22.8 H Glucose 93 Calcium 8.9 PFSH Medical History Osteoarthritis Chronic kidney disease Hypertension Skin lesion Heart murmur Irregular heart rate Dizziness Medicare annual wellness visit, subsequent Prostatitis Well adult exam History of urinary retention Splitting of urinary stream Enuresis, nocturnal only Shoulder pain (~2003) Mumps (~1948) Tinnitus (~1989) Hearing loss (~1989) Hiatal hernia Bradycardia Surgical History History of transurethral resection of prostate Anesthesia History of hernia repair (~05/2016) Family History Father Ruptured, aorta Sister Giant cell arteritis Social History household members: spouse Smoking Status: Former smoker Tobacco: How many years used: 20 quit status: quit date established (05/07/1979) alcohol intake: current substance use type: does not use Discharge Assessment & Plan Assessment and Plan Assessment: 1. Left pontine CVA with left face, arm, and leg weakness and delayed presentation, present on admission and active. 2. Hypertension, present on admission and active. 3. Chronic kidney disease 3a, eGFR 45) present on admission and active. Plan of Treatment: Continue medical therapy for ischemic stroke, left kenneth. Transferred to [facility] inpatient rehab for further rehabilitative efforts. Discharge Plan Discharge Plan [place] [facility] [place] Discharge Comment: Stable for discharge to acute rehab, [facility]. [facility]. Discharge orders & Medications Discharge Orders: Discharge (Order); Ordered 12/06/23 Ordered By: King Ruiz Prescriptions: New aspirin 81 mg Tablet,Delayed Release (Dr/Ec) 81 mg PO DAILY Qty: 30 0RF atorvastatin 20 mg Tablet 80 mg PO BEDTIME Qty: 30 0RF clopidogrel 75 mg Tablet 75 mg PO DAILY Qty: 21 0RF Continued lisinopril 10 mg tablet 10 mg PO BID Qty: 180 3RF Follow up/Referrals: Oliver Moy, [Primary Care Provider] - Discharge Health Status Multidrug resistant organism: No MDRO Diet/Activity/Treatments Diet: Regular Liquid consistency: Normal/Thin Special Rehabilitation Services Reason for rehabilitation: Therapy following stroke Rehab type: Physical therapy, Occupational therapy and Speech therapy Discharge Data Primary Care Provider: Oliver Moy Quality VTE Deep Vein Thrombosis/Pulmonary Embolism Present on Admission: No
--- NOTE | 2023-12-06 09:41 | P.DS_ITS ---
History of Present Illness History of Present Illness Chief complaint: Numbness on left side of body. Narrative: From ED doctor: 88-year-old male with history of hypertension, presents with complaint of left lower extremity numbness of the arm and leg as well as some facial droop. Symptoms started Sunday he would driven [place] the local [place] could not get out of the car was sudden onset and unable to lift or move his leg and had some numbness and tingling. Have any pain, noticed a little bit of mild sensation change in his left upper extremity. Was seen at [facility] head CT of his head and neck was given an aspirin and told to take an aspirin daily and discharged home. Patient states yesterday was a little bit better able to ambulate a little bit better but still having left-sided weakness today seems worse in now has new facial droop that is seems to be worsening compared symptoms continue to all be left-sided. Denies any headache, no fevers, notes some blurred vision, no chest pain or shortness of breath, no nausea or vomiting sometimes issues with constipation but has been having bowel movements no urinary symptoms no incontinence. 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 He states only medication is lisinopril 20 mg daily, did take an aspirin 324 mg this morning. He has had prior hip replacement, diaphragmatic hernia repair, stapedectomy. No known drug allergies, no tobacco has 2 beers nightly, no recreational drugs. Dr. Moy is his primary care physician. On Anticoagulants: No ED Course: CT scan was obtained in the ED as well as a CTA. No acute findings. NIH score was 6, the patient was outside of the time window for thrombolytics. Subjective: He developed leg weakness on the left on Sunday. This got a little bit better on Sunday but his left arm was not coordinated. He was seen would be on Sunday with a negative head CT and a diagnosis of possible radiculopathy. On Sunday he was so weak when trying to get to the bathroom he needed help to get into the bathroom. He has relatively obvious arm and leg weakness as well as a facial droop and slurred speech today. They elected to come to this emergency department for further evaluation. 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 He denies headache, or trauma to the head. He does have history of TURP and notes frequent urination recently, but no fevers, chills, or hematuria. Discharge Providers Provider Date of admission: 12/04/23 12:25 Discharge Date: 12/06/23 Primary care physician: Oliver Moy DO Consults: 12/04/23 14:21 Consult to Discharge Planning Routine Comment: Consult to Occupational Therapy Evaluate & Treat Comment: Physician Instructions: Evaluate and treat Consult to Physical Therapy Evaluate & Treat Comment: Physician Instructions: Evaluate and Treat Consult to Speech Therapy Evaluate & Treat Comment: Physician Instructions: Evaluate and treat Discharge provider: King Ruiz MD Summary Hospital Course Discharge Diagnosis: 1. CVA with left face, arm, and leg weakness and delayed presentation, present on admission and active. 2. Hypertension, present on admission and active. 3. Chronic kidney disease 3a (GFR 45), present on admission and active. Hospital Course: He was admitted with 2 days of left-sided leg and arm weakness. Imaging revealed a left pontine stroke. History of dual antiplatelet therapy and high dose atorvastatin. Therapies recommended inpatient rehab. He was stable for transfer on December 05. Status at Discharge Cognitive/behavioral status at discharge: oriented Functional status at discharge: uses cane/walker Overall status at discharge: patient is not back to baseline Time Spent with Patient Time spent: Greater than 30 minutes Exam Vital Signs (past 8 hours): - 12/06/23 04:00 12/06/23 08:00 12/06/23 08:20 Temperature 97.3 F L 98.6 F Pulse Rate 62 72 Respiratory Rate 19 18 Blood Pressure 148/80 H 149/94 H 149/94 H Pulse Oximetry 98 95 Oxygen Delivery Method Room Air Oxygen Flow Rate 0 Narrative Exam Narrative: NAD, alert and oriented. Fluent speech. Lungs are clear, normal rate and effort. Heart is regular, no murmur gallop or rub. Abdomen is soft, non distended. Extremities are free of edema. Left leg 2nd straight leg raise, left arm is weak but can be lifted above head with ataxia. Mild left facial droop. Objective ECG Impression: NSR Imaging Multiple studies:: Radiologist's impression: Head and neck CTA: No large vessel occlusion, significant stenosis, vascular dissection or aneurysm. Any quantitative measurements of stenosis were performed using NASCET criteria. Head CT: No acute intracranial pathology. ECHO: The left ventricle is normal in size. Left ventricular systolic function is normal. The ejection fraction is estimated to be 60-65%. There are no obvious focal wall motion abnormalities noted but poor endocardial definition reduces the sensitivity for the detection of such. Diastolic parameters suggest a relaxation abnormality of the left ventricle, consistent with probable normal filling pressures. The right ventricle is not well visualized. The right ventricular systolic function is normal. The left atrium is severely dilated. There is mild to moderate mitral regurgitation. There is mild to moderate aortic regurgitation. The aortic root is mildly dilated. The ascending aorta is moderately enlarged. Brain MRI: 1. Volume loss and small vessel ischemic disease. 2. Small subacute right kenneth infarct. 3. Small chronic left kenneth infarct. Labs 12/06/23 06:40 12/06/23 06:40 Labs: Laboratory Results - last 24 hr 12/06/23 06:40 WBC 6.8 RBC 4.28 L Hgb 13.6 Hct 40.5 L MCV 94.6 MCH 31.9 MCHC 33.7 RDW 15.3 H Plt Count 170 Neut % (Auto) 68.8 Lymph % (Auto) 18.1 L Wilson % (Auto) 9.1 Eos % (Auto) 3.1 Baso % (Auto) 0.9 Neut # (Auto) 4700 Lymph # (Auto) 1200 Wilson # (Auto) 600 Eos # (Auto) 200 Baso # (Auto) 100 Sodium 137 Potassium 3.9 Chloride 109 H Carbon Dioxide 23 BUN 34 H Creatinine 1.49 H Estimated GFR 45 L BUN/Creatinine Ratio 22.8 H Glucose 93 Calcium 8.9 PFSH Medical History Osteoarthritis Chronic kidney disease Hypertension Skin lesion Heart murmur Irregular heart rate Dizziness Medicare annual wellness visit, subsequent Prostatitis Well adult exam History of urinary retention Splitting of urinary stream Enuresis, nocturnal only Shoulder pain (~2003) Mumps (~1948) Tinnitus (~1989) Hearing loss (~1989) Hiatal hernia Bradycardia Surgical History History of transurethral resection of prostate Anesthesia History of hernia repair (~05/2016) Family History Father Ruptured, aorta Sister Giant cell arteritis Social History household members: spouse Smoking Status: Former smoker Tobacco: How many years used: 20 quit status: quit date established (05/07/1979) alcohol intake: current substance use type: does not use Discharge Assessment & Plan Assessment and Plan Assessment: 1. Left pontine CVA with left face, arm, and leg weakness and delayed presentation, present on admission and active. 2. Hypertension, present on admission and active. 3. Chronic kidney disease 3a, eGFR 45) present on admission and active. Plan of Treatment: Continue medical therapy for ischemic stroke, left kenneth. Transferred to [facility] inpatient rehab for further rehabilitative efforts. Discharge Plan Discharge Plan Patient Disposition: [facility] Under care of provider: [facility] Inpatient rehab Provider Discharge Comment: Stable for discharge to acute rehab, [facility]. [facility]. Discharge orders & Medications Discharge Orders: Discharge (Order); Ordered 12/06/23 Ordered By: King Ruiz Prescriptions: New aspirin 81 mg Tablet,Delayed Release (Dr/Ec) 81 mg PO DAILY Qty: 30 0RF atorvastatin 20 mg Tablet 80 mg PO BEDTIME Qty: 30 0RF clopidogrel 75 mg Tablet 75 mg PO DAILY Qty: 21 0RF Continued lisinopril 10 mg tablet 10 mg PO BID Qty: 180 3RF Follow up/Referrals: Olievr Moy DO [Primary Care Provider] - Discharge Health Status Multidrug resistant organism: No MDRO Diet/Activity/Treatments Diet: Regular Liquid consistency: Normal/Thin Special Rehabilitation [facility] Reason for rehabilitation: Therapy following stroke Rehab type: Physical therapy, Occupational therapy and Speech therapy Discharge Data Primary Care Provider: Oliver Moy Quality VTE Deep Vein Thrombosis/Pulmonary Embolism Present on Admission: No MIPS - DC The patient has a history of heart transplant or Left Ventricular Assist Device (LVAD). If yes, STOP here.: No A. The patient was prescribed or already taking an Angiotensin-Converting Enzyme (JACQUELINE) Inhibitor, or Angiotensin Receptor Karolyn (ARB).: No
--- NOTE | 2023-12-06 10:37 | PC.NURSE ---
Pt is dressed and IV has been removed. Belongings are packed up and Pt is ready for discharge to Acute Rehab when ROBI arrives to transport him. Report called to Ry SHAFER at [facility] and all questions answered.
== END 2023-12-06 10:58 | DRG 65 ==
LOC: ED 12:21 → AC 12:40
PROVIDERS: Admitting Provider Hospitalist; Emergency Provider Emergency Medicine; Family Provider Nurse Practitioner; PCP Family Medicine; Visit Provider Hospitalist
DX: I63.9 Cerebral infarction, unspecified (principal); G81.94 Hemiplegia, unspecified affecting left nondominant side; R29.810 Facial weakness; R29.706 NIHSS score 6; I12.9 Hypertensive chronic kidney disease with stage 1 through stage 4 chronic kidney disease, or unspecified chronic kidney disease; N18.31 Chronic kidney disease, stage 3a; R29.702 NIHSS score 2; Z87.891 Personal history of nicotine dependence
CPT/HCPCS: 36415; 70450; 70496; 70498; 70551; 80048; 80053; 82962; 85025; 85610; 85730; 92610; 93005; 93010; 93306; 97129; 97162; 97166; 97530; 97535; 99284; 99285; J1644; Q9967

== ENCOUNTER → 2024-09-01 10:15 | Outpatient (CLI) | payer MEDICARE, SELFPAY ==
[2023-12-04 13:39] VITALS: BMI 25.8
[2024-09-01 10:42] LABS: Add Manual Diff / Slide Review NO; Basophils Absolute Auto 100 /uL (0-100); Basophils Percent Auto 1.2 % (0-2); Eosinophils Absolute Auto 300 /uL (0-450); Hematocrit 41.7 % (41-53); Lymphocytes Absolute Auto 900 /uL (1100-4500); Mean Corpuscular HGB Conc 33.5 % (30-36); Mean Corpuscular Hemoglobin 32.3 PG (26-34); Mean Corpuscular Volume 96.4 fL (80-100); Monocytes Absolute Auto 500 /uL (0-900); Monocytes Percent Auto 10.3 % (3-14); Neutrophils Absolute Auto 3300 /uL (1500-7000); Neutrophils Percent Auto 64.5 % (50-75); Platelet Count 169 X10^3/uL (150-400); Red Blood Cell Count 4.32 X10^6/uL (4.5-5.9); Red Cell Distribution Width 14.7 % (11.6-14.8); White Blood Cell Count 5.2 X10^3/uL (4.5-11.0)
[2024-09-01 10:52] LABS: Hemoglobin A1C% w Est Avg Glu 4.9 % (4.0-6.0)
[2024-09-01 11:00] LABS: Alanine Aminotransferase 65 IU/L (<50); Albumin 4.2 g/dL (3.5-5.0); Alkaline Phosphatase 132 U/L (38-126); Aspartate Aminotransferase 71 IU/L (17-59); BUN Creatinine Ratio 19.8 (6-22); Bilirubin Total 0.9 mg/dL (0.2-1.3); Blood Urea Nitrogen 33 mg/dL (9-20); Calcium 9.4 mg/dL (8.4-10.2); Carbon Dioxide 24 mmol/L (22-32); Chloride 102 mmol/L (98-107); Estimated Glomerular Filt Rate 39 mL/min (>60); Globulin 2.1 g/dL (1.7-4.1); Glucose 91 mg/dL (70-99); HEMOLYSIS < 15 (0-50); Potassium 4.5 mmol/L (3.4-5.1); Sodium 135 mmol/L (137-145); Total Protein 6.3 g/dL (6.3-8.2)
[2024-09-01 11:28] LABS: TSH w/ Reflex to FT4 3.01 uIU/mL (0.47-4.68)
== END ==
PROVIDERS: Family Provider Nurse Practitioner; PCP Family Medicine; Referring Provider Family Medicine; Visit Provider Family Medicine
DX: I63.50 Cerebral infarction due to unspecified occlusion or stenosis of unspecified cerebral artery (principal); E78.00 Pure hypercholesterolemia, unspecified; N18.31 Chronic kidney disease, stage 3a; I12.9 Hypertensive chronic kidney disease with stage 1 through stage 4 chronic kidney disease, or unspecified chronic kidney disease
CPT/HCPCS: 36415; 80053; 83036; 84443; 85025

== ENCOUNTER → 2024-09-08 13:58 | Outpatient (CLI) | payer MEDICARE, SELFPAY ==
[2023-12-04 13:39] VITALS: BMI 25.8
--- NOTE | 2024-09-08 13:59 | DI.RAD.S_ITS ---
PROCEDURE: XR LUMBAR SPINE 2-3V INDICATIONS: LBP TECHNIQUE: 3 views of the lumbar spine were acquired. COMPARISON: None. FINDINGS: Bones: 5 [id number] vertebrae are present. Mild levoscoliosis has its apex about the L3 vertebral body. There is otherwise normal bony alignment. Severe L4-L5 and moderate to severe L1-L2, L2-L3, L3-L4 and L5-S1 disc height loss with adjacent endplate sclerosis and multilevel anterior osteophytosis. No vertebral body compression fractures. No suspicious bony lesions. Soft tissues: Overlying bowel gas pattern is normal. No suspicious soft tissue calcifications. Atherosclerotic vascular calcifications. Right hip hardware status post arthroplasty. IMPRESSION: Multilevel degenerative change of the lumbar spine and mild levoscoliosis without evidence acute bony abnormality. Dictated by: Robson Kern M.D. on 09/09/2024 at 0:29 Approved by: Robson Kern M.D. on 09/09/2024 at 0:30
== END ==
PROVIDERS: Family Provider Nurse Practitioner; PCP Family Medicine; Referring Provider Family Medicine; Visit Provider Family Medicine
DX: M25.78 Osteophyte, vertebrae (principal); M41.9 Scoliosis, unspecified; I70.90 Unspecified atherosclerosis; M54.50 Low back pain, unspecified; Z96.641 Presence of right artificial hip joint
CPT/HCPCS: 72100

== ENCOUNTER → 2024-11-27 13:14 | Outpatient (CLI) | payer MEDICARE, SELFPAY ==
[2023-12-04 13:39] VITALS: BMI 25.8
== END ==
LOC: PHYS 13:17
PROVIDERS: Family Provider Nurse Practitioner; PCP Family Medicine; Referring Provider Family Medicine; Visit Provider Family Medicine
DX: R29.898 Other symptoms and signs involving the musculoskeletal system (principal); M21.372 Foot drop, left foot
CPT/HCPCS: 95886; 95910

== ENCOUNTER → 2024-12-04 11:43 | Outpatient (CLI) | payer MEDICARE, SELFPAY ==
[2023-12-04 13:39] VITALS: BMI 25.8
--- NOTE | 2024-12-04 11:44 | DI.ECHO.S_ITS ---
[facility] : : [address] : [place] : : [id number] : : Phone: [phone] Echocardiogram Report + + :Name: CAROLYNN MOON Study Date: 12/04/2024 Height: 67 in : :[facility] ReadingLocation: Weight: 162 lb : : Gender: Male BSA: 1.8 m2 : :: 1935 Age: 89 yrs BP: 149/84 mmHg: :Reason For Study: AORTIC AND MITRAL VALVE REGURGITATION : :Ordering Physician: SLOANE, : :NISSA Performed By: Danie Sandhu : :Referring: NISSA ANTON : + + Interpretation Summary Sinus bradycardia. Heart rate is 43 -57 bpm. Normal LV size and wall thickness. Normal wall motion and LV systolic function. Ejection fraction is 60-65%. Severe left atrial enlargement; otherwise normal chamber sizes. Aortic sclerosis without stenosis with mild associated aortic regurgitation. Pressure half-time is 659 ms. Mild central mitral regurgitation. Moderate central tricuspid regurgitation PA systolic pressure is 47 mm Hg assuming RA pressure of 3 mm Hg. Mildly dilated aortic root measuring 4 cm; ascending aorta measures 4.6 cm in diameter. Compared to prior echo December 04, 2023, ascending aorta diameter progressed from 4.3 to 4.6 cm. Bradycardia is stable. Valvular abnormalities are stable. Procedure: A two-dimensional transthoracic echocardiogram with color flow and Doppler was performed. The study quality was technically good. Comparison is made with the echocardiogram of 12/04/2023. The heart rate ranged between 43- 73 bpm during the study. Left Ventricle: The left ventricle is normal in size. There is normal left ventricular wall thickness. There is no ventricular septal defect visualized. The ejection fraction is estimated to be 60-65%. There are no focal wall motion abnormalities. Diastolic parameters suggest a relaxation abnormality of the left ventricle, consistent with probable normal filling pressures. Right Ventricle: The right ventricle is normal in size and function. The right ventricular systolic function is normal. Atria: The left atrium is severely dilated. The right atrium grossly appears normal in size. There is no Doppler evidence for an interatrial shunt. Mitral Valve: There is mild mitral annular calcification. The mitral valve leaflets appear mildly thickened. There is mild mitral regurgitation. Aortic Valve: The aortic valve is trileaflet. The aortic valve is slightly calcified. The aortic valve opens well. There is mild to moderate aortic regurgitation. Tricuspid Valve: The tricuspid valve leaflets are thin and pliable. There is moderate tricuspid regurgitation. The right ventricular systolic pressure is estimated to be at least 47 mmHg based on an estimated right atrial pressure of 3 mm Hg. Pulmonic Valve: The pulmonic valve leaflets are thin and pliable; valve motion is normal. There is trace pulmonic regurgitation. Great Vessels: The aortic root is mildly dilated. The ascending aorta is moderately enlarged. The pulmonary artery is normal size. The IVC is of normal diameter and collapses greater than 50% with a sniff. This suggests a low right atrial pressure of 3 mm Hg. Pericardium/ Pleura There is no pericardial effusion. MMode/2D Measurements & Calculations LVIDd: 5.3 cm LVOT diam: 2.4 cm LVIDs: 3.2 cm Ao root diam: 4.0 cm FS: 39.4 % asc Aorta Diam: 4.6 cm EPSS: 0.84 cm IVSd: 0.96 cm LVPWd: 1.1 cm LV alamo. diameter/BSA (cm/m^2): 2.9 LV sys. diameter/BSA (cm/m^2): 1.7 LA A2 area: 28.4 cm2 RA long axis: 4.3 cm LA A4 area: 32.5 cm2 RA area: 13.5 cm2 LA length (vol): 6.7 cm RA vol: 36.0 ml LA vol: 116.9 ml RA : 19.5 ml/m2 LA vol index: 63.2 ml/m2 IVC diam: 1.7 cm RVD1 (basal): 4.5 cm RVD2 (mid): 3.7 cm TAPSE: 2.6 cm Doppler Measurements & Calculations Ao V2 max: 179.1 cm/sec LVOT Max Paramjit: 82.7 cm/sec Ao V2 mean: 123.7 cm/sec LV V1 max P.7 mmHg Ao max P.8 mmHg LV V1 VTI: 20.9 cm Ao mean P.7 mmHg SANDRA(I,D): 2.1 cm2 Ao V2 VTI: 44.2 cm SANDRA(V,D): 2.1 cm2 sev ratio: 0.47 SANDRA indexed to BSA (cm^2/m^2): 1.2 AI P1/2t: 665.5 msec AI dec slope: 229.8 cm/sec2 MV E max paramjit: 54.0 cm/sec TR max paramjit: 331.0 cm/sec MV A max paramjit: 65.1 cm/sec TR max P.8 mmHg MV E/A: 0.83 PA V2 max: 84.8 cm/sec Med Peak E' Paramjit: 4.0 cm/sec PA V2 mean: 51.0 cm/sec E/E' med: 13.6 PA mean P.2 mmHg Lat Peak E' Paramjit: 4.7 cm/sec PA pr(Accel): 58.4 mmHg E/E' lat: 11.5 E/e' average: 12.5 MV dec time: 0.24 sec SV(LVOT): 94.4 ml Electronically signed by: Elise Price M.D. on Reading Physician:12/05/2024 02:37 AM
== END ==
PROVIDERS: Family Provider Nurse Practitioner; PCP Family Medicine; Referring Provider Family Medicine; Visit Provider Family Medicine
DX: I08.3 Combined rheumatic disorders of mitral, aortic and tricuspid valves (principal); I77.89 Other specified disorders of arteries and arterioles
CPT/HCPCS: 93306

== ENCOUNTER → 2025-03-17 14:43 | Outpatient (CLI) | payer MEDICARE, SELFPAY ==
[2023-12-04 13:39] VITALS: BMI 25.8
--- NOTE | 2025-03-17 14:44 | DI.ECHO.S_ITS ---
[facility]---------+ [facility] : : [address] : : [place] : : [id number] : : Phone: [phone] Echocardiogram Report + + :Name: CAROLYNN MOON Study Date: 03/17/2025 Height: 67 in : :[facility] ReadingLocation: Weight: 174 lb : : Gender: Male BSA: 1.9 m2 : :: 1935 Age: 89 yrs BP: 137/69 mmHg: :Reason For Study: Endocarditis : :Ordering Physician: SARANYA BAUMAN Performed By: Carmen Ramos : :Referring: SARANYA BAUMAN : + + Interpretation Summary - The left ventricular contractility is normal. Estimated ejection fraction is greater than 60% with no segmental wall motion abnormalities. No LVH. Grade 2 diastolic dysfunction. - The right ventricular contractility is normal. - Severe biatrial enlargement noted. The right ventricular cavity is also mildly dilated. The left ventricle is of normal size. - Moderate mitral regurgitation. - Mild aortic insufficiency. - Moderate tricuspid regurgitation with estimated pulmonary systolic artery pressures of 46 mmHg. - No obvious valvular vegetations noted. - No obvious intracardiac shunts. - No obvious intracardiac masses nor thrombi. - No hemodynamically significant pericardial effusion. - Mildly dilated ascending thoracic aorta without obvious dissection. Conclusion: Normal biventricular systolic function with moderate diastolic dysfunction. Mild to moderate valvular insufficiencies noted. When compared with previous echocardiogram, there appears to be a mild increase in the degree of mitral regurgitation with improvement of the aortic insufficiency. Procedure: A two-dimensional transthoracic echocardiogram with color flow and Doppler was performed. The study quality was technically adequate. Comparison is made with the echocardiogram of 12-04-24. The heart rate ranged between 49-51 bpm during the study. Left Ventricle: There is normal left ventricular wall thickness. The left ventricle is normal in size. The ejection fraction is estimated to be 60-65%. Grade II diastolic dysfunction with elevated left atrial pressure. Right Ventricle: Borderline right ventricular enlargement. The right ventricular systolic function is normal. Atria: The left atrium is severely dilated. The right atrium is severely dilated. The interatrial septum grossly appears intact with no obvious evidence for an atrial septal defect. Mitral Valve: The mitral valve leaflets appear mildly thickened. There is a flat closure plane of the the mitral valve leaflets. There is moderate mitral regurgitation. Aortic Valve: The aortic valve is trileaflet. The aortic valve opens well. The aortic valve is moderately calcified. There is mild aortic regurgitation. Tricuspid Valve: The tricuspid valve leaflets are thickened and/or calcified, but open well. There is moderate tricuspid regurgitation. The right ventricular systolic pressure is estimated to be at least 46 mmHg based on an estimated right atrial pressure of 3 mm Hg. Pulmonic Valve: The pulmonic valve leaflets appear thickened, but open well. There is a trace or physiologic amount of pulmonic regurgitation. Great Vessels: The aortic root is normal size. The ascending aorta is mildly enlarged. The aortic arch is at the upper limits of normal in size. The IVC is of normal diameter and collapses greater than 50% with a sniff. This suggests a low right atrial pressure of 3 mm Hg. Pericardium/ Pleura There is no pericardial effusion. There is no pleural effusion. MMode/2D Measurements & Calculations LVIDd: 5.6 cm LVOT diam: 1.8 cm LVIDs: 3.0 cm Ao root diam: 3.9 cm FS: 45.8 % asc Aorta Diam: 4.3 cm EPSS: 1.1 cm Ao Arch Diam (Prox Trans): 3.3 cm IVSd: 0.93 cm LVPWd: 1.0 cm LV alamo. diameter/BSA (cm/m^2): 2.9 LV sys. diameter/BSA (cm/m^2): 1.6 LA A2 area: 32.0 cm2 RA long axis: 6.7 cm LA A4 area: 34.0 cm2 RA area: 33.6 cm2 LA length (vol): 6.9 cm RA vol: 143.0 ml LA vol: 133.2 ml RA : 75.0 ml/m2 LA vol index: 69.9 ml/m2 Doppler Measurements & Calculations Ao V2 max: 189.9 cm/sec LVOT Max Paramjit: 86.9 cm/sec Ao V2 mean: 119.7 cm/sec LV V1 max P.0 mmHg Ao max P.4 mmHg LV V1 VTI: 23.7 cm Ao mean P.9 mmHg SANDRA(I,D): 1.5 cm2 Ao V2 VTI: 41.9 cm SANDRA(V,D): 1.2 cm2 sev ratio: 0.57 SANDRA indexed to BSA (cm^2/m^2): 0.77 AI P1/2t: 689.6 msec AI dec slope: 222.4 cm/sec2 MV E max paramjit: 33.9 cm/sec TR max paramjit: 327.2 cm/sec MV A max paramjit: 54.3 cm/sec TR max P.8 mmHg MV E/A: 0.62 PA V2 max: 46.6 cm/sec Med Peak E' Paramjit: 4.4 cm/sec PA V2 mean: 31.8 cm/sec E/E' med: 7.8 PA mean P.46 mmHg Lat Peak E' Paramjit: 6.8 cm/sec PA pr(Accel): 32.8 mmHg E/E' lat: 5.0 E/e' average: 6.4 MV dec time: 0.49 sec MR ERO: 0.10 cm2 Pulm A Revs Paramjit: 24.0 cm/sec MR PISA: 1.5 cm2 MR flow rate: 60.0 cm3/sec MR PISA radius: 0.49 cm SV(LVOT): 61.3 ml Reading Physician:PM
== END ==
PROVIDERS: Family Provider Nurse Practitioner; PCP Family Medicine; Referring Provider Internal Medicine; Visit Provider Internal Medicine
DX: I08.3 Combined rheumatic disorders of mitral, aortic and tricuspid valves (principal); I77.89 Other specified disorders of arteries and arterioles
CPT/HCPCS: 93306